=== PATIENT | male | born 1945 | race Caucasian/White ===

== ENCOUNTER 2016-10-30 09:35 | Outpatient (CLI) | END 2016-10-30 09:36 | disposition home or self-care (01) ==

== ENCOUNTER 2016-11-10 13:04 | Outpatient (CLI) | payer MEDICARE, OTHER | END 2016-11-10 13:05 | disposition home or self-care (01) | DX: G47.33 Obstructive sleep apnea (adult) (pediatric) (principal); I49.9 Cardiac arrhythmia, unspecified | CPT/HCPCS: 99214; G0463 ==

== ENCOUNTER 2017-01-21 10:11 | Outpatient (CLI) | payer MEDICARE, OTHER | END 2017-01-21 10:12 | disposition home or self-care (01) | DX: G47.33 Obstructive sleep apnea (adult) (pediatric) (principal) | CPT/HCPCS: 99214; G0463 ==

== ENCOUNTER 2017-05-15 09:58 | Outpatient (CLI) | payer MEDICARE, OTHER ==
[2017-05-15 10:39] LABS: BUN - BLOOD UREA NITROGEN 37 mg/dL (6-20); CALCIUM 9.2 mg/dL (8.5-10.3); CARBON DIOXIDE - CO2 27 mmol/L (21-32); CHLORIDE 102 mmol/L (101-111); CHOL/HDL RATIO 1.9 (<5.0); CHOLESTEROL 116 mg/dL; CREATININE 1.2 mg/dL (0.6-1.2); GFR - MDRD 60 (>89); GLUCOSE 126 mg/dL (70-100); HDL CHOLESTEROL 61 mg/dL; POTASSIUM 3.7 mmol/L (3.5-5.0); SODIUM 136 mmol/L (135-145); TRIGLYCERIDES 36 mg/dL
[2017-05-15 11:12] LABS: HEMOGLOBIN A1C 0.58 g/dL
[2017-05-15 11:13] LABS: LDL CHOLESTEROL,DIRECT 45 mg/dL
== END 2017-05-15 09:59 | disposition home or self-care (01) ==
LOC: LAB 09:58
PROVIDERS: ATTEND Internal Medicine
DX: J01.90 Acute sinusitis, unspecified (principal); E11.9 Type 2 diabetes mellitus without complications; J30.9 Allergic rhinitis, unspecified; N18.3 Chronic kidney disease, stage 3 (moderate); E66.9 Obesity, unspecified; G47.33 Obstructive sleep apnea (adult) (pediatric); I12.9 Hypertensive chronic kidney disease with stage 1 through stage 4 chronic kidney disease, or unspecified chronic kidney disease
CPT/HCPCS: 36415; 80048; 80061; 82043; 82570; 83036

== ENCOUNTER 2017-05-26 10:18 | Outpatient (CLI) | payer MEDICARE, OTHER | END 2017-05-26 10:19 | disposition home or self-care (01) | LOC: RT 10:18 | PROVIDERS: ATTEND Internal Medicine | DX: I49.9 Cardiac arrhythmia, unspecified (principal) | CPT/HCPCS: 93005 ==

== ENCOUNTER 2018-05-19 09:13 | Outpatient (CLI) | payer MEDICARE, OTHER ==
[2018-05-19 09:52] LABS: CREATININE,URINE 139.3 mg/dL; PROTEIN/CREATININE RATIO,URINE 0.1 (<=0.2)
[2018-05-19 10:08] LABS: BUN - BLOOD UREA NITROGEN 23 mg/dL (6-20); CARBON DIOXIDE - CO2 24 mmol/L (21-32); CHLORIDE 99 mmol/L (101-111); CHOL/HDL RATIO 2.5 (<5.0); CHOLESTEROL 108 mg/dL; CREATININE 1.1 mg/dL (0.6-1.2); GFR - MDRD 66 (>89); GLUCOSE 117 mg/dL (70-100); HDL CHOLESTEROL 43 mg/dL; LDL CHOLESTEROL,CALCULATED 50 mg/dL; LDL/HDL RATIO 1.2 (<3.6); SODIUM 133 mmol/L (135-145); VLDL CHOLESTEROL 15 mg/dL
[2018-05-19 13:14] LABS: HB2 TOTAL 13.5 g/dL; HEMOGLOBIN A1C 0.55 g/dL; HEMOGLOBIN A1C % 5.9 % (4.6-6.2)
== END 2018-05-19 09:14 | disposition home or self-care (01) ==
LOC: LAB 09:13
PROVIDERS: ATTEND Internal Medicine
DX: Z00.00 Encounter for general adult medical examination without abnormal findings (principal); J30.9 Allergic rhinitis, unspecified; E66.9 Obesity, unspecified; I12.9 Hypertensive chronic kidney disease with stage 1 through stage 4 chronic kidney disease, or unspecified chronic kidney disease; E11.22 Type 2 diabetes mellitus with diabetic chronic kidney disease; N18.3 Chronic kidney disease, stage 3 (moderate); G47.33 Obstructive sleep apnea (adult) (pediatric)
CPT/HCPCS: 36415; 80048; 80061; 82570; 83036; 83721; 84156

== ENCOUNTER 2018-05-28 11:36 | Outpatient (CLI) | payer MEDICARE, OTHER ==
--- NOTE | 2018-05-28 13:06 | CT Report ---
Procedure Date: 05/28/2018 Accession Number: [id number] / [id number] Procedure: CT - Chest W/O CPT Code: FULL RESULT: EXAM: CT CHEST EXAM DATE: 05/28/2018 11:52 AM. CLINICAL HISTORY: Hemoptysis. Bloody mucus when coughing. History of smoking with 1 pack per day for 25 years. Shortness of breath. Diabetes. High blood pressure. COMPARISONS: CT abdomen and pelvis from 02/17/2015. TECHNIQUE: Routine helical CT imaging was performed through the chest. IV contrast: None. Reconstructions: Coronal and sagittal. In accordance with CT protocol optimization, one or more of the following dose reduction techniques were utilized for this exam: automated exposure control, adjustment of mA and/or KV based on patient size, or use of iterative reconstructive technique. FINDINGS: Lungs/Pleura: Lobular lesion is seen in the right upper lobe seen best on image 24 series 4 measuring 4 x 1.3 cm with a craniocaudad extent of approximately 1.2 cm. Confluent area of adjacent stellate opacity and architectural distortion. Posteriorly and inferiorly in the right upper lobe, are adjacent nodular densities approximately 5 measuring up to 1.9 x 1.3, 1.1 x 1.0, 2.5 x 1.5 and 1.9 x 1.8 cm, somewhat ill-defined. The 4 cm density coalesces with an area of cystic change in the right upper lobe. The nodular densities extend to the right hilum where there is soft tissue bronchovascular thickening and prominence of the bronchovascular margins involving the right upper lobe with thickening and narrowing of the bronchi specifically the right upper lobe bronchus seen best on axial images 28-26 series 3. There are emphysematous changes centrilobular and paraseptal emphysematous changes. Bullous changes seen in the lower lobes. Peripheral septal thickening and punctate calcifications are seen in the right middle and right lower lobe. No pleural effusions. Mediastinum: Heart size is normal. Coronary artery calcified and thoracic aortic calcified plaque. Small pericardial effusion. Prominent right paratracheal 10 mm and right hilar 16 mm short axis dimension lymph nodes also seen subcarinal lymph node measuring up to 13 mm in short axis dimension. Small hiatal hernia. Bones: Degenerative changes of the thoracic spine. No acute osseous abnormalities. Visualized Abdomen: Included portions of the liver, spleen, and pancreas are unremarkable. Nodular thickening of the adrenal glands is seen with more prominent masslike enlargement of the left adrenal gland measuring up to 2.2 x 1.8 cm which is new. Nodular thickening of the right adrenal gland somewhat similar in appearance. Low-attenuation exophytic lesion arises from the upper right kidney measuring 45 mm, indeterminate. Included portions of the stomach and upper abdominal bowel are unremarkable. Abdominal aortic calcified plaque. Other: None. IMPRESSION: 1. Right upper lobe lobular lesions with the dominant lesion measuring 4 cm with adjacent satellite lesions also present in the right upper lobe. Extensive right upper lobe bronchovascular soft tissue thickening extending to the right hilum with narrowing of the right upper lobe bronchus. Findings are concerning for a bronchogenic lesion with adjacent satellite lesions. 2. Mediastinal particularly subcarinal and right hilar adenopathy. 3. Emphysematous changes. 4. Left adrenal 2.2 cm nodule. Findings discussed with Dr. Hicks following the study on 05/28/2018. RADIA
== END 2018-05-28 11:37 | disposition home or self-care (01) ==
LOC: DI 11:36
PROVIDERS: ATTEND Internal Medicine
DX: R04.2 Hemoptysis (principal); R91.8 Other nonspecific abnormal finding of lung field
CPT/HCPCS: 71250

== ENCOUNTER 2018-07-26 09:02 | Outpatient (CLI) | payer MEDICARE, OTHER | END 2018-07-26 09:03 | disposition home or self-care (01) | LOC: DI 09:02 | PROVIDERS: ATTEND Internal Medicine | DX: I49.9 Cardiac arrhythmia, unspecified (principal); I48.91 Unspecified atrial fibrillation; I51.7 Cardiomegaly; J30.9 Allergic rhinitis, unspecified; I12.9 Hypertensive chronic kidney disease with stage 1 through stage 4 chronic kidney disease, or unspecified chronic kidney disease; E11.22 Type 2 diabetes mellitus with diabetic chronic kidney disease; N18.3 Chronic kidney disease, stage 3 (moderate); R04.2 Hemoptysis; J98.4 Other disorders of lung; E66.9 Obesity, unspecified; G47.33 Obstructive sleep apnea (adult) (pediatric) | CPT/HCPCS: 36415; 80053; 84443; 85025; 93005; 93306 ==

== ENCOUNTER 2018-07-26 10:13 | Outpatient (CLI) | payer MEDICARE, OTHER ==
[2018-07-26 10:56] LABS: BASOPHILS # (AUTO) 0.1 10^3/uL (0.0-0.1); EOSINOPHILS # (AUTO) 0.1 10^3/uL (0.0-0.7); EOSINOPHILS % (AUTO) 0.9 %; HGB - HEMOGLOBIN 12.7 g/dL (14.0-18.0); LYMPHOCYTES # (AUTO) 1.5 10^3/uL (1.5-3.5); MEAN CORPUSCULAR HEMOGLOBIN 31.2 pg (27.0-31.0); MEAN CORPUSCULAR HGB CONC 34.5 g/dL (32.0-36.0); MEAN CORPUSCULAR VOLUME 90.4 fL (80.0-94.0); MEAN PLATELET VOLUME 8.5 fL (7.4-11.4); MONOCYTES # (AUTO) 0.7 10^3/uL (0.0-1.0); MONOCYTES % (AUTO) 8.3 %; NEUTROPHILS # (AUTO) 6.5 10^3/uL (1.5-6.6); NEUTROPHILS % (AUTO) 72.8 %; PLT - PLATELET COUNT 200 10^3/uL (130-450); RED BLOOD COUNT 4.08 10^6/uL (4.70-6.10); RED CELL DISTRIBUTION WIDTH 14.1 % (12.0-15.0)
[2018-07-26 11:32] LABS: ALBUMIN 3.6 g/dL (3.2-5.5); ALBUMIN/GLOBULIN RATIO 0.9 (1.0-2.2); ALKALINE PHOSPHATASE 117 IU/L (42-121); ALT ALANINE AMINOTRANSFERASE 15 IU/L (10-60); AST ASPARTATE AMINOTRANSFERASE 14 IU/L (10-42); BILIRUBIN,TOTAL 0.8 mg/dL (0.2-1.0); BUN - BLOOD UREA NITROGEN 20 mg/dL (6-20); CALCIUM 8.8 mg/dL (8.5-10.3); CARBON DIOXIDE - CO2 21 mmol/L (21-32); CHLORIDE 104 mmol/L (101-111); CREATININE 1.2 mg/dL (0.6-1.2); GFR - MDRD 60 (>89); GLUCOSE 109 mg/dL (70-100); SODIUM 134 mmol/L (135-145); TOTAL PROTEIN 7.7 g/dL (6.7-8.2)
== END 2018-07-26 10:14 | disposition home or self-care (01) ==
LOC: LAB 10:13
PROVIDERS: ATTEND Internal Medicine
DX: J30.9 Allergic rhinitis, unspecified (principal); E11.22 Type 2 diabetes mellitus with diabetic chronic kidney disease; N18.3 Chronic kidney disease, stage 3 (moderate); I49.9 Cardiac arrhythmia, unspecified; R04.2 Hemoptysis; J98.4 Other disorders of lung; E66.9 Obesity, unspecified; G47.33 Obstructive sleep apnea (adult) (pediatric); I12.9 Hypertensive chronic kidney disease with stage 1 through stage 4 chronic kidney disease, or unspecified chronic kidney disease
CPT/HCPCS: 36415; 80053; 84443; 85025

== ENCOUNTER 2018-09-27 19:15 | Inpatient (IN) | payer MEDICARE, OTHER ==
[2018-09-27 19:40] LABS: BASOPHILS # (AUTO) 0.1 10^3/uL (0.0-0.1); BASOPHILS % (AUTO) 1.2 %; EOSINOPHILS % (AUTO) 0.3 %; HGB - HEMOGLOBIN 11.9 g/dL (14.0-18.0); LYMPHOCYTES # (AUTO) 1.2 10^3/uL (1.5-3.5); LYMPHOCYTES % (AUTO) 10.2 %; MEAN CORPUSCULAR HEMOGLOBIN 29.8 pg (27.0-31.0); MEAN CORPUSCULAR HGB CONC 32.9 g/dL (32.0-36.0); MEAN CORPUSCULAR VOLUME 90.6 fL (80.0-94.0); MEAN PLATELET VOLUME 8.6 fL (7.4-11.4); MONOCYTES # (AUTO) 1.2 10^3/uL (0.0-1.0); MONOCYTES % (AUTO) 9.9 %; NEUTROPHILS # (AUTO) 9.6 10^3/uL (1.5-6.6); NEUTROPHILS % (AUTO) 78.4 %; PLT - PLATELET COUNT 102 10^3/uL (130-450); RED BLOOD COUNT 3.99 10^6/uL (4.70-6.10); RED CELL DISTRIBUTION WIDTH 15.7 % (12.0-15.0); WHITE BLOOD COUNT 12.2 x10^3/uL (4.8-10.8)
[2018-09-27 19:49] LABS: ALBUMIN 3.4 g/dL (3.2-5.5); BILIRUBIN,TOTAL 0.9 mg/dL (0.2-1.0); CALCIUM 8.4 mg/dL (8.5-10.3); CREATININE 1.2 mg/dL (0.6-1.2); TOTAL PROTEIN 6.8 g/dL (6.7-8.2)
--- NOTE | 2018-09-27 20:23 | ED Physician Documentation ---
PD HPI DYSPNEA - Stated complaint Stated Complaint: SOA - Chief complaint Chief Complaint: Resp - History obtained from History obtained from: Patient, Family - History of Present Illness Timing - onset: How many weeks ago (1) Timing - onset during: Light activity Timing - duration: Weeks (He has had about a week of progressive pedal edema dyspnea and orthopnea. He did start with some immunotherapy for lung cancer a couple weeks ago. He does have a history of intermittent atrial fibrillation. He had had an echocardiogram July 26 which showed sinus rhythm and ejection fraction of 60%. There is no history of congestive heart failure. He has not had any fever or cough.) Timing - details: Gradual onset, Still present Inciting event(s): No: URI Improved by: Rest, Sitting up Worsened by: Exertion, Laying flat Associated symptoms: Palpitations, Bilateral edema. No: Fever, Wheezing, Chest pain / discomfort Review of Systems Constitutional: denies: Fever, Chills Nose: denies: Rhinorrhea / runny nose, Congestion Throat: denies: Sore throat Cardiac: reports: Palpitations, Pedal edema (new onset). denies: Chest pain / pressure, Calf pain Respiratory: reports: Dyspnea. denies: Cough GI: reports: Abdominal Pain, Abdominal Swelling (mild). denies: Nausea, Vomiting Skin: reports: Rash (inguinal rash bilaterally) PD PAST MEDICAL HISTORY - Past Medical History Past Medical History: Yes Cardiovascular: Hypertension, High cholesterol, Atrial fibrillation Respiratory: Shortness of breath, Sleep apnea, CPAP use, Other Neuro: None Endocrine/Autoimmune: Type 2 diabetes GI: None : Other Psych: None Musculoskeletal: Other Derm: None Other Past Medical History: lung cancer that metastized to bones in pelvis and back and adrenal glands - Past Surgical History Past Surgical History: Yes HEENT: Cataracts - Present Medications Home Medications: Ambulatory Orders Medication Instructions Recorded Confirmed Aspirin [Aspir-Low] 81 mg PO DAILY 10/14/16 10/15/16 Atorvastatin Calcium 40 mg PO DAILY 10/14/16 10/14/16 Doxazosin Mesylate 8 mg PO DAILY 10/14/16 10/14/16 Lisinopril 40 mg PO BID 10/14/16 10/14/16 amLODIPine [Norvasc] 10 mg PO DAILY 10/14/16 10/14/16 hydroCHLOROthiazide 25 mg PO DAILY 10/14/16 10/14/16 [Hydrochlorothiazide] metFORMIN [Glucophage] 500 mg PO BID 10/14/16 10/14/16 - Allergies Allergies/Adverse Reactions: Allergies Allergy/AdvReac Type Severity Reaction Status Date / Time No Known Drug Allergies Allergy Verified 09/27/18 19:28 - Social History Does the pt smoke?: No Smoking Status: Former smoker Does the pt drink ETOH?: No Does the pt have substance abuse?: No - Immunizations Immunizations are current?: Yes - POLST Patient has POLST: No PD ED PE NORMAL - Vitals Vital signs reviewed: Yes - General General: Alert and oriented X 3, Well developed/nourished - HEENT HEENT: Pharynx benign - Neck Neck: Supple, no meningeal sign, No adenopathy, No bruit, Other (JVD noted at 45 degrees) - Cardiac Cardiac: No murmur. No: RRR (irregular and fast at 120-135 rate c/w atrial fib. ) - Respiratory Respiratory: No: Clear bilaterally (crackles at bases. Decreased sounds right lung) - Abdomen Abdomen: Soft, Non tender, No organomegaly, Other (some distension of the lower abd, with decreased bowel sounds. ) - Male Male : Other (inguinal rash with demarcated redness, left more than right, c/w tinea cruris.) - Rectal Rectal: Deferred - Back Back: No CVA TTP - Derm Derm: Normal color, Warm and dry - Extremities Extremities: No deformity, No tenderness to palpate, Normal ROM s pain, Other (2+ edema in both legs, pitting, up to knees. No calf tenderness. ) - Neuro Neuro: Alert and oriented X 3, No motor deficit, Normal speech Results - Vitals Vitals: Vital Signs - 24 hr 09/27/18 09/27/18 09/27/18 19:15 19:36 21:13 Temperature 36.0 C L Heart Rate 128 H 120 H 114 H Respiratory 24 19 16 Rate Blood Pressure 121/76 100/61 94/63 O2 Saturation 94 94 92 09/27/18 09/27/18 09/27/18 21:34 21:52 22:10 Temperature Heart Rate 118 H 118 H 121 H Respiratory 21 18 20 Rate Blood Pressure 98/72 94/63 99/72 O2 Saturation 94 94 92 Oxygen O2 Source Nasal cannula Oxygen Flow Rate 2 - EKG (time done) 20:52 Rate: Rate (enter#) (106) Rhythm: Atrial fibrillation [place]: Normal QRS: Normal Ischemia: Normal ST segments. No: ST elevation c/w ischemia, ST depression - Labs Labs: Laboratory Tests 09/27/18 09/27/18 12 19:30 19:30 19:30 WBC 12.2 H RBC 3.99 L Hgb 11.9 L Hct 36.1 L MCV 90.6 MCH 29.8 MCHC 32.9 RDW 15.7 H Plt Count 102 L MPV 8.6 Neut # (Auto) 9.6 H Lymph # (Auto) 1.2 L White # (Auto) 1.2 H Eos # (Auto) 0.0 Baso # (Auto) 0.1 Absolute Nucleated RBC 0.00 Nucleated RBC % 0.0 PT INR Sodium 128 L Potassium 4.8 Chloride 98 L Carbon Dioxide 23 Anion Gap 7.0 BUN 40 H Creatinine 1.2 Estimated GFR (MDRD) 60 L Glucose 132 H Calcium 8.4 L Magnesium Total Bilirubin 0.9 AST 25 ALT 21 Alkaline Phosphatase 154 H B-Natriuretic Peptide 692 H Total Protein 6.8 Albumin 3.4 Globulin 3.4 Albumin/Globulin Ratio 1.0 Lipase 19 L 09/27/18 09/27/18 19:30 19:30 WBC RBC Hgb Hct MCV MCH MCHC RDW Plt Count MPV Neut # (Auto) Lymph # (Auto) White # (Auto) Eos # (Auto) Baso # (Auto) Absolute Nucleated RBC Nucleated RBC % PT 29.5 H INR 2.6 H Sodium Potassium Chloride Carbon Dioxide Anion Gap BUN Creatinine Estimated GFR (MDRD) Glucose Calcium Magnesium 2.4 Total Bilirubin AST ALT Alkaline Phosphatase B-Natriuretic Peptide Total Protein Albumin Globulin Albumin/Globulin Ratio Lipase - Rads (name of study) chest xray Radiology: Prelim report reviewed (right middle lobe mass c/w known cancer. New lower lobe infiltrates/edema bilaterally.), EMP read contemporaneously PD MEDICAL DECISION MAKING - ED course Complexity details: reviewed old records (He had an echocardiogram 07/26/2018 for evaluation of intermittent atrial fibrillation. At the time it was a sinus rhythm showed an ejection fraction of 60% without any acute abnormalities. He does have a known lung cancer with metastases. He is receiving immunotherapy treatment for it. There is no history of congestive heart failure.), considered differential (Seems likely congestive failure related to fast atrial fibrillation. There is no prior ischemic heart disease. There is no valvular heart disease on a recent echocardiogram. He does have a little bit of fullness in the abdomen along with the bilateral pedal edema. There is known lung cancer so could consider possibility of hepatic vascular congestion and subsequent lower extremity lower body edema. However that would not account for the dyspnea and some crackles in the lungs. He needs rate control and also diuresis. He has not had any cough or fever so I doubt pneumonia.), d/w patient Departure - Departure Disposition: ED Place in Observation Clinical Impression: Leg edema, Atrial fibrillation with RVR Dyspnea Qualifiers: Dyspnea type: orthopnea Qualified Code(s): R06.01 - Orthopnea Pulmonary edema Qualifiers: Chronicity: acute Qualified Code(s): J81.0 - Acute pulmonary edema Lung cancer Qualifiers: Laterality: right Lung location: upper lobe of lung Qualified Code(s): C34.11 - Malignant neoplasm of upper lobe, right bronchus or lung Condition: Stable Record reviewed to determine appropriate education?: Yes
[2018-09-27] MEDS ORDERED: METOPROLOL 5 MG/5 ML VIAL IVP STA (20:47)
[2018-09-27] MEDS ORDERED: MORPHINE 10 MG/ML VIAL IVP STA (20:47)
[2018-09-27] MEDS ORDERED: FUROSEMIDE 40 MG/4 ML VIAL IVP STA (20:47)
--- NOTE | 2018-09-27 21:04 | XRAY Report ---
Reason: dyspnea Procedure Date: 09/27/2018 Accession Number: [id number] / [id number] Procedure: XR - Chest 1 View X-Ray CPT Code: 03758 FULL RESULT: EXAM: CHEST RADIOGRAPHY EXAM DATE: 09/27/2018 08:51 PM. CLINICAL HISTORY: Dyspnea. COMPARISON: CHEST W/O 05/28/2018 11:46 AM. TECHNIQUE: 1 view. FINDINGS: Lungs/Pleura: 5.6 cm masslike region in the right upper lobe corresponds to the patient's known lung cancer and postobstructive pneumonia. Patchy right middle, right lower and right upper lobe opacities are noted. Mild blunting of both costophrenic angles. Retrocardiac opacities are also noted. Compared to the prior study, worsening interstitial prominence is noted in both lungs. No pneumothorax. Mediastinum: Stable cardiomediastinal silhouette. Left Mediport terminates in the junction of the SVC and brachiocephalic vein. Atheromatous disease is noted in the thoracic aorta. Other: None. IMPRESSION: 1. Right upper lobe mass. 2. Right lung and left lower lobe opacity suspicious for infiltrates, asymmetric edema or lymphangitic spread of tumor. 3. Small effusions. No pneumothorax. RADIA
[2018-09-27] MEDS ORDERED: ONDANSETRON 4 MG/2 ML VIAL IVP PRN (22:15)
[2018-09-27] MEDS ORDERED: ZOLPIDEM 5 MG TABLET PO PRN (22:15)
[2018-09-27] MEDS ORDERED: HYDROcod/ACETAM 5/325 MG TABLET PO PRN (22:15)
[2018-09-27] MEDS ORDERED: PROCHLORPERAZINE 10 MG/2 ML VIAL IVP PRN (22:15)
[2018-09-27] MEDS ORDERED: ACETAMINOPHEN 325 MG TABLET PO PRN (22:15)
[2018-09-27] MEDS ORDERED: cefTRIAXone 1 GM in SODIUM CHLORIDE 0.9% MINIBAG 100 ML IV STA (22:20)
[2018-09-27] MEDS ORDERED: AZITHROMYCIN 250 MG TABLET PO STA (22:20)
[2018-09-27] MEDS ORDERED: METOPROLOL 5 MG/5 ML VIAL IVP PRN (22:37)
--- NOTE | 2018-09-27 22:47 | HISTORY & PHYSICAL EXAMINATION ---
Chief Complaint - Chief Complaint Chief Complaint: Shortness of breath and leg swelling History of Present Illness - Admitted From Admitted From:: Emergency department - History Obtained From Records Reviewed: ED records and previous visits records History obtained from: Patient and Dr. Mauricio, ED physician Exam Limitations: Patient is a fair historian, unclear on some details - History of Present Illness HPI Comment/Other: Patient is a 73-year-old male with a history of paroxysmal atrial fibrillation, type 2 diabetes mellitus, hypertension, hyperlipidemia, and unfortunately stage IV lung cancer with recent findings of metastasis to bone and liver in particular lumbar spine. He presents to the emergency room with chief complaint of bilateral leg swelling. The duration is difficult for the patient to pinpoint however he settles somewhere around 2 weeks, associated with a shortness of breath that when asked ranges anywhere from 25 years to 1 month in duration. However, without being able to provide a very reliable timeline he does seem to complain of an acute exacerbation of shortness of breath. He states that about 1 month ago his doctor put him on oxygen. He typically uses 2 L of oxygen at home however on 2 L of oxygen he was short of breath today and saturating at 78%. He was brought into the emergency room to be evaluated by his who arrives later and is able to provide some additional history. He does have a history of obstructive sleep apnea, and she had just gone home to bring his home CPAP device. Patient is not known to have a history of CHF, and a recent echocardiogram in July 2018 showed an ejection fraction of 60-65%. He is not on oral diuretics. Despite his history of paroxysmal atrial fibrillation he is not on a anticoagulant and he is not on a rate control medication. In the emergency room he was found to be afebrile but tachycardic in the 115-120 range, somewhat hypotensive with systolics in the 90s over 60s diastolic, and a white blood cell count of 12 with no lactic acid ordered. Chest x-ray is indicative of bilateral pleural effusion with possibility of infiltrate basal bilaterally. Given that the patient has tachycardia, increased oxygen demand, and symptoms of a possible CHF exacerbation, the hospitalist team was asked to admit this patient. History - Past Medical History Cardiovascular: reports: Hypertension, High cholesterol, Atrial fibrillation. denies: Congestive heart failure Respiratory: reports: Shortness of breath, Sleep apnea, CPAP use, Other. denies: COPD, Emphysema Neuro: reports: None Endocrine/Autoimmune: reports: Type 2 diabetes GI: reports: None : reports: Benign prostate hypertrophy, Other Psych: reports: None Musculoskeletal: reports: Chronic back pain, Other Derm: reports: None MRSA Hx?: No Other Past Medical History: lung cancer that metastized to bones in pelvis and back and adrenal glands - Past Surgical History HEENT: reports: Cataracts Other past surgical history: Port-A-Cath left chest - Family & Social History Family History: Mother: , Father: Living arrangement: At home Living Situation: With spouse/s.o. - Substance History Use: Uses substance without health or social issues: NONE - POLST Patient has POLST: No POLST Status: Full Code Meds/Allgy - Home Medications Home Medications: Ambulatory Orders Medication Instructions Recorded Confirmed Aspirin [Aspir-Low] 81 mg PO DAILY 10/14/16 10/15/16 Atorvastatin Calcium 40 mg PO DAILY 10/14/16 10/14/16 Doxazosin Mesylate 8 mg PO DAILY 10/14/16 10/14/16 Lisinopril 40 mg PO BID 10/14/16 10/14/16 amLODIPine [Norvasc] 10 mg PO DAILY 10/14/16 10/14/16 hydroCHLOROthiazide 25 mg PO DAILY 10/14/16 10/14/16 [Hydrochlorothiazide] metFORMIN [Glucophage] 500 mg PO BID 10/14/16 10/14/16 - Allergies Allergies/Adverse Reactions: Allergies Allergy/AdvReac Type Severity Reaction Status Date / Time No Known Drug Allergies Allergy Verified 09/27/18 19:28 Review of Systems - Constitutional Constitutional: reports: Fatigue, Weakness. denies: Fever, Chills - Cardiovascular Cariovascular: reports: Irregular heart rate, Palpitations. denies: Chest pain, Lightheadedness, Syncope - Respiratory Respiratory: reports: Wheezing, SOB at rest, SOB with exertion, Apnea - Gastrointestinal Gastrointestinal: denies: Abdominal pain, Constipation, Diarrhea, Change in bowel habits - Musculoskeletal Musculoskeletal: reports: Back pain - Integumentary Integumentary: denies: Rash - Neurological Neurological: reports: General weakness Prior Level of Functionality: Lives at home and fairly independent though does have assistance of spouse Exam - Vital Signs Reviewed Vital Signs: Yes Vital Signs: Vital Signs x48h Temp Pulse Resp BP Pulse Ox 09/27/18 22:33 95 17 108/75 93 09/27/18 22:24 120 H 23 103/70 93 09/27/18 22:10 121 H 20 99/72 92 09/27/18 21:52 118 H 18 94/63 94 09/27/18 21:34 118 H 21 98/72 94 09/27/18 21:13 114 H 16 94/63 92 09/27/18 19:36 120 H 19 100/61 94 09/27/18 19:15 36.0 C L 128 H 24 121/76 94 - Physical Exam General Appearance: positive: No acute distress Eyes Bilateral: positive: Normal inspection ENT: positive: ENT inspection nml Neck: positive: Nml inspection Respiratory: positive: Chest non-tender, Wheezes, Rhonchi Cardiovascular: positive: No murmur, No gallop, Irregularly irregular, Tachycardia Peripheral Pulses: positive: 2+ Abdomen: positive: Non-tender, No organomegaly, Nml bowel sounds, No distention Skin: positive: Color nml, Other (Few petechiae of the bilateral lower extremities without Erythema) Extremities: positive: Pedal edema Neurologic/Psychiatric: positive: Oriented x3, CN's nml (2-12), Motor nml, Sensation nml Sepsis Event Note (H) - Evaluation Possible source of Sepsis: positive: Pulmonary - Sepsis Criteria Sepsis Criteria: Recorded Heart Rate greater than 90 bpm, WBC count greater than 12,000 or less than 4000 Conclusion/Plan - Problem List (1) Dyspnea Conclusion/Plan: Patient having dyspnea possibly secondary to new onset CHF, possibly due to persistent tachycardia versus medication related with cancer treatment. Though the patient had an echocardiogram 2 months ago that did not demonstrate CHF, cannot rule out the possibility of acute onset. However, his chest x-ray does show the probability of infiltrates and despite the fact that he has no fever, he does have a white blood cell count and at this point is infection cannot be ruled out. He is having an increase in his oxygen demand from 3 L to 5 L so we will keep him in house treating his hypoxia with oxygen supplementation, diuresis for the pulmonary edema and pleural effusion, and empiric antibiotics for possible infection pending results of lactic acid and morning lab WBC count. Qualifiers: Dyspnea type: orthopnea Qualified Code(s): R06.01 - Orthopnea (2) Hypoxia Conclusion/Plan: As above, unclear if this is CHF exacerbation, infection, And cannot exclude pulmonary embolus. Given that he does have symptoms more consistent with CHF including bilateral pedal edema, wheezing, will hold off on CT angiogram pending clinical course. He will be on IV heparin for DVT prophylaxis in the meantime. See plan above (3) Atrial fibrillation with RVR Conclusion/Plan: Patient is moderately tachycardic with heart rates in the 115-120 range. He does not take a rate control medication at home. He was given a single dose of IV metoprolol in the emergency room prior to this admission so we will monitor for the reaction to this medication and I will provide as needed metoprolol for now given his soft blood pressures rather than scheduled beta-livier. Overnight and tomorrow morning pending his blood pressures and heart rate further determination can be made as to whether or not he should be on a scheduled beta-livier or other rate control medication. (4) Leg edema Conclusion/Plan: Leg edema is probably related to the dyspnea and possibly related to new onset CHF exacerbation. Another consideration would be the Norvasc although at 5 mg daily and was he relatively acute onset of leg edema, this is unlikely. In any case we will be holding this medication and increasing diuresis and following clinical course. (5) Hypertension Conclusion/Plan: History of hypertension currently with blood pressures in the normal to low range. Possible examination could include sepsis and lactic acid is pending. In the meantime, due to need for rate control low-dose of metoprolol was given.We will hold home Norvasc and lisinopril. (6) Hyperlipidemia Conclusion/Plan: Continue home statin (7) Pulmonary edema Conclusion/Plan: See above Qualifiers: Chronicity: acute Qualified Code(s): J81.0 - Acute pulmonary edema (8) Type 2 diabetes mellitus Conclusion/Plan: Control is uncertain, A1c pending in the morning. We will hold oral metformin and treat with insulin sliding scale Qualifiers: Diabetes mellitus ferry terminal agent insulin use: without ferry terminal agent use Diabetes mellitus complication status: without complication Qualified Code(s): E11.9 - Type 2 diabetes mellitus without complications (9) Lung cancer Conclusion/Plan: Known diagnosis with new metastasis. Unlikely to require intervention for cancer during this hospital stay, will control pain. Qualifiers: Laterality: right Lung location: upper lobe of lung Qualified Code(s): C34.11 - Malignant neoplasm of upper lobe, right bronchus or lung - Lab Results Lab results reviewed: Yes Fish Bones: 09/27/18 19:30 09/27/18 19:30 - Diagnostic Imaging Results Diagnostic Imaging Results: positive: Final report reviewed, Read independently - EKG Results EKG Interpreted Independently: Yes EKG Comparison: Changed from prior EKG (Tachycardia, Known A. fib. No ST elevation or sign of MT) Core Measures - Anticipated LOS I expect patient to be DC'd or transferred within 96 hours.: Yes - DVT/VTE - Prophylaxis VTE/DVT Device ordered at admit?: Yes
[2018-09-27 22:50] LABS: INR 2.6 (0.8-1.2); PT - PROTHROMBIN TIME 29.5 secs (9.9-12.6)
[2018-09-28] MEDS: SODIUM CHLORIDE FLUSH 0.9% 10 ML SYRINGE IVP SCH ×3 (01:06→16:03)
[2018-09-28 05:25] LABS: HGB - HEMOGLOBIN 11.8 g/dL (14.0-18.0); MEAN CORPUSCULAR HEMOGLOBIN 29.6 pg (27.0-31.0); MEAN CORPUSCULAR HGB CONC 32.3 g/dL (32.0-36.0); MEAN CORPUSCULAR VOLUME 91.7 fL (80.0-94.0); MEAN PLATELET VOLUME 8.5 fL (7.4-11.4); RED BLOOD COUNT 3.99 10^6/uL (4.70-6.10); RED CELL DISTRIBUTION WIDTH 15.2 % (12.0-15.0); WHITE BLOOD COUNT 14.4 x10^3/uL (4.8-10.8)
[2018-09-28 05:37] LABS: CALCIUM 8.2 mg/dL (8.5-10.3); CREATININE 1.2 mg/dL (0.6-1.2)
[2018-09-28 05:52] LABS: HB2 TOTAL 12.3 g/dL; HEMOGLOBIN A1C 0.53 g/dL; HEMOGLOBIN A1C % 6.1 % (4.6-6.2)
[2018-09-28] MEDS ORDERED: HEPARIN 5,000 UNIT/ML VIAL SUBQ SCH (09:00)
[2018-09-28] MEDS ORDERED: DOXAZOSIN 4 MG TABLET PO SCH (09:00)
[2018-09-28] MEDS ORDERED: FUROSEMIDE 40 MG/4 ML VIAL IVP SCH (09:00)
[2018-09-28] MEDS: FAMOTIDINE 20 MG TABLET PO SCH ×2 (09:26→20:38)
[2018-09-28] MEDS: ATORVASTATIN 40 MG TABLET PO SCH (09:27)
[2018-09-28] MEDS: KETOCONAZOLE 2% CREAM 15 GM TUBE TOP SCH ×2 (09:28→20:48)
[2018-09-28] MEDS: ASPIRIN EC 81 MG TABLET PO SCH (09:28)
[2018-09-28] MEDS: POLYETHYLENE GLYCOL 3350 17 GM PACKET PO SCH (09:28)
[2018-09-28] MEDS: INSULIN ASPART 300 UNIT/3 ML PEN SUBQ SCH ×4 (09:28→20:38)
[2018-09-28] MEDS: SODIUM CHLORIDE FLUSH 0.9% 10 ML SYRINGE IVP PRN (09:29)
--- NOTE | 2018-09-28 11:12 | PROVIDER PROGRESS NOTE ---
Subjective - Prog Note Date Prog Note Date: 09/28/18 Prog Note Time: 11:11 - Subjective Pt reports feeling: No change Subjective: Chintan complains of BLE edema that is causing the most distress. He denies chest pain, nausea, vomiting, diarrhea, or a productive cough. His , Haylee is present for the exam. Current Medications - Current Medications Current Medications: Active Medications Acetaminophen (Tylenol) 650 mg PO Q4HR PRN PRN Reason: Pain 1 to 4 Hydrocodone Bitart/Acetaminophen (Novi 5/325) 1 tab PO Q4HR PRN PRN Reason: Pain 5 to 7 Aspirin (Ecotrin) 81 mg PO DAILY [facility] Last Admin: 09/28/18 09:28 Dose: Not Given Atorvastatin Calcium (Lipitor) 40 mg PO DAILY [facility] Last Admin: 09/28/18 09:27 Dose: 40 mg Enoxaparin Sodium (Lovenox) 40 mg SUBQ DAILY [facility] Famotidine (Pepcid) 20 mg PO BID [facility] Last Admin: 09/28/18 09:26 Dose: 20 mg Furosemide (Lasix Inj 40 Mg Vial) 80 mg IVP BID [facility] Furosemide (Lasix Inj 20mg Vial) 20 mg IVP ONCE ONE Stop: 09/28/18 11:35 Heparin Sodium (Beef Lung) () 30 - 50 unit IVP PRN PRN PRN Reason: Port Protocol (<24 hours) Insulin Aspart (Novolog) 1 - 9 unit SUBQ 0800,1200,1700,2100 [facility]; Protocol Last Admin: 09/28/18 09:28 Dose: Not Given Insulin Glargine (Lantus Solostar) 5 unit SUBQ QPM [facility] Ketoconazole (Nizoral 2% Cream) 1 applic TOP BID [facility] Last Admin: 09/28/18 09:28 Dose: 1 applic Levalbuterol HCl (Xopenex) 1.25 mg INH Q2HR PRN PRN Reason: Wheezing Lidocaine HCl (Xylocaine Uro-Jet 2%) 2.5 ml UR Q6H PRN PRN Reason: PAIN Metoprolol Succinate (Toprol Xl) 12.5 mg PO BIDWM [facility] Metoprolol Tartrate (Lopressor Inj) 5 mg IVP Q4HR PRN PRN Reason: Tachycardia Morphine Sulfate (Morphine (Carpuject)) 2 mg IVP Q4HR PRN PRN Reason: Pain 8 to 10 Ondansetron HCl (Zofran Inj) 4 mg IVP Q6HR PRN PRN Reason: Nausea / Vomiting Polyethylene Glycol (Miralax) 17 gm PO DAILY [facility] Last Admin: 09/28/18 09:28 Dose: Not Given Prochlorperazine Edisylate (Compazine Inj) 10 mg IVP Q6HR PRN PRN Reason: Nausea / Vomiting Sodium Chloride (Normal Saline Flush 0.9%) 10 ml IVP PRN PRN PRN Reason: NEEDED PER PROVIDER ORDERS Last Admin: 09/28/18 09:29 Dose: 10 ml Sodium Chloride (Normal Saline Flush 0.9%) 10 ml IVP 0100,0900,1700 [facility] Last Admin: 09/28/18 09:29 Dose: 10 ml Sodium Chloride (Normal Saline Flush 0.9%) 20 ml IVP PRN PRN PRN Reason: After Blood Draw Tamsulosin HCl (Flomax) 0.4 mg PO DAILY [facility] Zolpidem Tartrate (Ambien) 5 mg PO QPM PRN PRN Reason: Insomnia Atorvastatin Calcium 40 mg PO DAILY 10/14/16 Doxazosin Mesylate 8 mg PO DAILY 10/14/16 Lisinopril 40 mg PO BID 10/14/16 amLODIPine [Norvasc] 10 mg PO DAILY 10/14/16 hydroCHLOROthiazide [Hydrochlorothiazide] 25 mg PO DAILY 10/14/16 metFORMIN [Glucophage] 500 mg PO BID 10/14/16 Acetaminophen [Extra Strength Non-Aspirin] 1,000 mg PO TID PRN 09/28/18 Albuterol Sulfate [Proair Hfa Inhaler] 2 puffs INH Q4H PRN 09/28/18 Aspirin [Adult Aspirin] 81 mg PO DAILY 09/28/18 Cholecalciferol (Vitamin D3) [Vitamin D3] 1,000 unit PO DAILY 09/28/18 Fluticasone Propionate 2 spray NS DAILY 09/28/18 Loratadine [Allergy] 10 mg PO DAILY 09/28/18 Warfarin Sodium 5 mg PO DAILY 09/28/18 Objective - Vital Signs/Intake & Output Reviewed Vital Signs: Yes Vital Signs: Vital Signs x48h Temp Pulse Resp BP Pulse Ox 09/28/18 11:06 36.7 C 96 18 109/88 H 94 09/28/18 08:02 36.6 C 72 18 103/73 98 09/28/18 05:00 36.5 C 106 H 18 113/63 98 Intake & Output: Intake & Output 09/25/18 09/26/18 09/27/18 09/28/18 23:59 23:59 23:59 23:59 Intake Total 110 240 Output Total 50 1325 Balance 60 -1085 - Objective General Appearance: positive: Alert, Mild distress Eyes Bilateral: positive: Normal inspection, No lid inflammation Eyes: OU Conjunctivae pale ENT: positive: ENT inspection nml, Pharynx nml, Dry mucous membranes Neck: positive: Thyroid nml, No JVD, Trachea midline Respiratory: positive: Chest non-tender, Rhonchi Cardiovascular: positive: No gallop, Irregularly irregular, Systolic murmur, Decreased pulse(s) Peripheral Pulses: 0 Popliteal (R), 0 Popliteal (L), 2+ Radial (R), 2+ Radial (L) Abdomen: positive: Non-tender, Nml bowel sounds, Other (rounded, firm) Back: positive: Nml inspection Skin: positive: No rash, Warm, Dry, Pallor, Skin rash (see chart under notes for pictures.) Neurologic/Psychiatric: positive: Oriented x3, CN's nml (2-12), Weakness, Sensory loss, Depressed mood/affect Reflexes: Bicep (R): 3+, Bicep (L): 3+ - Lab Results Fish Bones: 09/28/18 04:46 09/28/18 04:46 Other Labs: Lab Results x24hrs 09/28/18 09/28/18 09/28/18 Range/Units 04:46 04:46 04:46 WBC 14.4 H (4.8-10.8) x10^3/uL RBC 3.99 L (4.70-6.10) 10^6/uL Hgb 11.8 L (14.0-18.0) g/dL Hct 36.6 L (42.0-52.0) % MCV 91.7 (80.0-94.0) fL MCH 29.6 (27.0-31.0) pg MCHC 32.3 (32.0-36.0) g/dL RDW 15.2 H (12.0-15.0) % Plt Count 98 L (130-450) 10^3/uL MPV 8.5 (7.4-11.4) fL Neut # (Auto) (1.5-6.6) 10^3/uL Lymph # (Auto) (1.5-3.5) 10^3/uL [place] # (Auto) (0.0-1.0) 10^3/uL Eos # (Auto) (0.0-0.7) 10^3/uL Baso # (Auto) (0.0-0.1) 10^3/uL Absolute Nucleated RBC x10^3/uL Nucleated RBC % /100WBC PT (9.9-12.6) secs INR (0.8-1.2) Sodium 130 L (135-145) mmol/L Potassium 5.0 (3.5-5.0) mmol/L Chloride 99 L (101-111) mmol/L Carbon Dioxide 20 L (21-32) mmol/L Anion Gap 11.0 (6-13) BUN 41 H (6-20) mg/dL Creatinine 1.2 (0.6-1.2) mg/dL Estimated GFR (MDRD) 60 L (>89) Glucose 133 H (70-100) mg/dL Glycated Hemoglobin (4.6-6.2) % Estim Average Glucose (70-100) Lactic Acid (0.5-2.2) mmol/L Calcium 8.2 L (8.5-10.3) mg/dL Magnesium (1.7-2.8) mg/dL Total Bilirubin (0.2-1.0) mg/dL AST (10-42) IU/L ALT (10-60) IU/L Alkaline Phosphatase (42-121) IU/L B-Natriuretic Peptide 818 H (5-100) pg/mL Total Protein (6.7-8.2) g/dL Albumin (3.2-5.5) g/dL Globulin (2.1-4.2) g/dL Albumin/Globulin Ratio (1.0-2.2) Lipase (22-51) U/L 09/28/18 09/27/18 09/27/18 Range/Units 04:46 22:38 19:30 WBC (4.8-10.8) x10^3/uL RBC (4.70-6.10) 10^6/uL Hgb (14.0-18.0) g/dL Hct (42.0-52.0) % MCV (80.0-94.0) fL MCH (27.0-31.0) pg MCHC (32.0-36.0) g/dL RDW (12.0-15.0) % Plt Count (130-450) 10^3/uL MPV (7.4-11.4) fL Neut # (Auto) (1.5-6.6) 10^3/uL Lymph # (Auto) (1.5-3.5) 10^3/uL [place] # (Auto) (0.0-1.0) 10^3/uL Eos # (Auto) (0.0-0.7) 10^3/uL Baso # (Auto) (0.0-0.1) 10^3/uL Absolute Nucleated RBC x10^3/uL Nucleated RBC % /100WBC PT 29.5 H (9.9-12.6) secs INR 2.6 H (0.8-1.2) Sodium (135-145) mmol/L Potassium (3.5-5.0) mmol/L Chloride (101-111) mmol/L Carbon Dioxide (21-32) mmol/L Anion Gap (6-13) BUN (6-20) mg/dL Creatinine (0.6-1.2) mg/dL Estimated GFR (MDRD) (>89) Glucose (70-100) mg/dL Glycated Hemoglobin 6.1 (4.6-6.2) % Estim Average Glucose 128 H (70-100) Lactic Acid 1.6 (0.5-2.2) mmol/L Calcium (8.5-10.3) mg/dL Magnesium (1.7-2.8) mg/dL Total Bilirubin (0.2-1.0) mg/dL AST (10-42) IU/L ALT (10-60) IU/L Alkaline Phosphatase (42-121) IU/L B-Natriuretic Peptide (5-100) pg/mL Total Protein (6.7-8.2) g/dL Albumin (3.2-5.5) g/dL Globulin (2.1-4.2) g/dL Albumin/Globulin Ratio (1.0-2.2) Lipase (22-51) U/L 09/27/18 09/27/18 09/27/18 Range/Units 19:30 19:30 19:30 WBC (4.8-10.8) x10^3/uL RBC (4.70-6.10) 10^6/uL Hgb (14.0-18.0) g/dL Hct (42.0-52.0) % MCV (80.0-94.0) fL MCH (27.0-31.0) pg MCHC (32.0-36.0) g/dL RDW (12.0-15.0) % Plt Count (130-450) 10^3/uL MPV (7.4-11.4) fL Neut # (Auto) (1.5-6.6) 10^3/uL Lymph # (Auto) (1.5-3.5) 10^3/uL [place] # (Auto) (0.0-1.0) 10^3/uL Eos # (Auto) (0.0-0.7) 10^3/uL Baso # (Auto) (0.0-0.1) 10^3/uL Absolute Nucleated RBC x10^3/uL Nucleated RBC % /100WBC PT (9.9-12.6) secs INR (0.8-1.2) Sodium 128 L (135-145) mmol/L Potassium 4.8 (3.5-5.0) mmol/L Chloride 98 L (101-111) mmol/L Carbon Dioxide 23 (21-32) mmol/L Anion Gap 7.0 (6-13) BUN 40 H (6-20) mg/dL Creatinine 1.2 (0.6-1.2) mg/dL Estimated GFR (MDRD) 60 L (>89) Glucose 132 H (70-100) mg/dL Glycated Hemoglobin (4.6-6.2) % Estim Average Glucose (70-100) Lactic Acid (0.5-2.2) mmol/L Calcium 8.4 L (8.5-10.3) mg/dL Magnesium 2.4 (1.7-2.8) mg/dL Total Bilirubin 0.9 (0.2-1.0) mg/dL AST 25 (10-42) IU/L ALT 21 (10-60) IU/L Alkaline Phosphatase 154 H (42-121) IU/L B-Natriuretic Peptide 692 H (5-100) pg/mL Total Protein 6.8 (6.7-8.2) g/dL Albumin 3.4 (3.2-5.5) g/dL Globulin 3.4 (2.1-4.2) g/dL Albumin/Globulin Ratio 1.0 (1.0-2.2) Lipase 19 L (22-51) U/L 09/27/18 Range/Units 19:30 WBC 12.2 H (4.8-10.8) x10^3/uL RBC 3.99 L (4.70-6.10) 10^6/uL Hgb 11.9 L (14.0-18.0) g/dL Hct 36.1 L (42.0-52.0) % MCV 90.6 (80.0-94.0) fL MCH 29.8 (27.0-31.0) pg MCHC 32.9 (32.0-36.0) g/dL RDW 15.7 H (12.0-15.0) % Plt Count 102 L (130-450) 10^3/uL MPV 8.6 (7.4-11.4) fL Neut # (Auto) 9.6 H (1.5-6.6) 10^3/uL Lymph # (Auto) 1.2 L (1.5-3.5) 10^3/uL [place] # (Auto) 1.2 H (0.0-1.0) 10^3/uL Eos # (Auto) 0.0 (0.0-0.7) 10^3/uL Baso # (Auto) 0.1 (0.0-0.1) 10^3/uL Absolute Nucleated RBC 0.00 x10^3/uL Nucleated RBC % 0.0 /100WBC PT (9.9-12.6) secs INR (0.8-1.2) Sodium (135-145) mmol/L Potassium (3.5-5.0) mmol/L Chloride (101-111) mmol/L Carbon Dioxide (21-32) mmol/L Anion Gap (6-13) BUN (6-20) mg/dL Creatinine (0.6-1.2) mg/dL Estimated GFR (MDRD) (>89) Glucose (70-100) mg/dL Glycated Hemoglobin (4.6-6.2) % Estim Average Glucose (70-100) Lactic Acid (0.5-2.2) mmol/L Calcium (8.5-10.3) mg/dL Magnesium (1.7-2.8) mg/dL Total Bilirubin (0.2-1.0) mg/dL AST (10-42) IU/L ALT (10-60) IU/L Alkaline Phosphatase (42-121) IU/L B-Natriuretic Peptide (5-100) pg/mL Total Protein (6.7-8.2) g/dL Albumin (3.2-5.5) g/dL Globulin (2.1-4.2) g/dL Albumin/Globulin Ratio (1.0-2.2) Lipase (22-51) U/L ABX Reporting Has patient been on IV antibiotics over the past 48 hours?: Yes Sepsis Event Note (H) - Evaluation Current Stage of Sepsis: Ruled out Possible source of Sepsis: positive: Pulmonary - Sepsis Criteria Sepsis Criteria: Recorded Heart Rate greater than 90 bpm, WBC count greater than 12,000 or less than 4000 Assessment/Plan - Problem List (1) Right heart failure, NYHA class 3 Impression: From an echo dated 07/26/2018, the patient was found to have biventricle enlargement and an RVSP of 51 mmHg. He has known MAGDALENO and now stage 4 lung cancer since March of 2018. He states that over the past week, his leg edema and abdominal girth has increased. He has been so debilitated due to his profound leg edema, only taking shuffling steps. He has been started on Lasix IV at 40mg, now increased to 80 mg IV. He has not had very generous urine output, so I have ordered an indwelling zafar for accurate I/O. Plan: Await new echo results, start low dose metoprolol, increase lasix dose, insert zafar for accurate I/Os and ensure ease of emptying. Daily weights, vital signs. (2) Cor pulmonale Impression: From an echo dated 07/26/2018, the patient was found to have biventricle enlargement and an RVSP of 51 mmHg. He has known MAGDALENO, which he states that he is compliant with, and now stage 4 lung cancer since March of 2018. He states that over the past week, his leg edema and abdominal girth has increased. He is only on hydralyzine at home. Plan: After this acute CHF exacerbation, we will consider spironolactone for home use. Continue home CPAP at night with 3L bleed in. Respiratory care with nebs. (3) Type 2 diabetes mellitus Impression: The patient has a good HgA1C of 6.1%, and is prescribed Metformin. He and his state that he has been diabetic for the past ~5 years. He unfortunately has had anorexia at home for the past week and has been steadily loosing weight since his diagnosis of stage 4 lung CA in March 2018. Plan: Low dose nightly Lantus, SSI and sugar checks. Regular diet for now as he has no appetite. Qualifiers: Diabetes mellitus check out cashier insulin use: without check out cashier use Diabetes mellitus complication status: without complication Qualified Code(s): E11.9 - Type 2 diabetes mellitus without complications (4) Malignant neoplasm of right lung stage 4 Impression: The patient and his are very interested in a Palliative care consult due to the patient's increased needs physically and future plans with oncology, and course of treatment. The patient states that he does not know the actual prognosis of this disease and continues with out patient treatment. Plan: Continue supportive care, Palliative care consult. (5) MAGDALENO on CPAP Impression: The patient states that he has been on CPAP for at least the past 25 years, and states that he never sleeps without it. It is in his room on exam today. Plan: Ensure home CPAP orders are on the chart, continue use at HS for sleeping. Bleed in O2 @ 3L. (6) Oxygen dependent Impression: The patient has recently been prescribed home oxygen as per PCP and remains at 3L nasal cannula. He complains of a dry mouth, without evidence of thrush. Plan: Continue respiratory care, nebs, oxygen and nightly CPAP. (7) BPH with obstruction/lower urinary tract symptoms Impression: The patient is prescribed doxazosin at home, but was found to be retaining urine overnight. I have ordered an indwelling zafar in light of this acute CHF and the amount of diuresis that will be needed, and changed his med to Flomax. Plan: Continue zafar, start Flomax, accurate I/Os.
[2018-09-28] MEDS ORDERED: FUROSEMIDE 20 MG/2 ML VIAL IVP ONE (11:34)
[2018-09-28] MEDS ORDERED: LIDOCAINE 2% URO-JET 5 ML SYRINGE UR PRN (11:35)
[2018-09-28] MEDS: LORATADINE 10 MG TABLET PO SCH (13:35)
[2018-09-28] MEDS: WARFARIN 5 MG TABLET PO SCH (13:35)
[2018-09-28] MEDS: TAMSULOSIN 0.4 MG CAPSULE PO SCH (13:35)
[2018-09-28] MEDS: HYDROcod/ACETAM 5/325 MG TABLET PO PRN ×3 (13:36→20:37)
[2018-09-28] MEDS: LEVALBUTEROL 1.25 MG/3 ML NEB INH PRN ×2 (13:38→20:12)
[2018-09-28] MEDS: MORPHINE ER 15 MG TABLET PO SCH (15:57)
[2018-09-28 16:32] LABS: BILIRUBIN,URINE NEGATIVE (NEGATIVE); GLUCOSE, URINE (UA) NEGATIVE (NEGATIVE); KETONES,URINE (UA) NEGATIVE (NEGATIVE); LEUKOCYTE ESTERASE, URINE TRACE (NEGATIVE); NITRITE,URINE NEGATIVE (NEGATIVE); OCCULT BLOOD,URINE LARGE (NEGATIVE); PROTEIN,URINE NEGATIVE (NEGATIVE); UROBILINOGEN,URINE 0.2 (NORMAL) E.U./dL (NORMAL)
[2018-09-28 16:53] LABS: BACTERIA,URINE Rare /HPF (None Seen); CASTS, URINE 3-5 Hyaline Casts /LPF; CLARITY,URINE CLEAR (CLEAR); MUCUS,URINE Few Strands; RBC,URINE TNTC /HPF (0-5); SQUAMOUS EPITHELIAL CELL,UR NONE SEEN (<= Few)
[2018-09-28] MEDS: METOPROLOL SUCCINATE 25 MG TABLET PO SCH (17:07)
[2018-09-28] MEDS: FUROSEMIDE 40 MG/4 ML VIAL IVP SCH (20:37)
[2018-09-28] MEDS ORDERED: INSULIN GLARGINE 300 UNIT/3 ML PEN SUBQ SCH (21:00)
[2018-09-29] MEDS: MORPHINE ER 15 MG TABLET PO SCH ×4 (00:06→22:09)
[2018-09-29] MEDS: SODIUM CHLORIDE FLUSH 0.9% 10 ML SYRINGE IVP SCH ×4 (00:09→23:49)
[2018-09-29 05:06] LABS: HGB - HEMOGLOBIN 11.5 g/dL (14.0-18.0); MEAN CORPUSCULAR HEMOGLOBIN 29.9 pg (27.0-31.0); MEAN CORPUSCULAR HGB CONC 32.7 g/dL (32.0-36.0); MEAN CORPUSCULAR VOLUME 91.5 fL (80.0-94.0); MEAN PLATELET VOLUME 8.2 fL (7.4-11.4); RED BLOOD COUNT 3.83 10^6/uL (4.70-6.10); RED CELL DISTRIBUTION WIDTH 15.4 % (12.0-15.0); WHITE BLOOD COUNT 11.5 x10^3/uL (4.8-10.8)
[2018-09-29 05:07] LABS: INR 2.6 (0.8-1.2); PT - PROTHROMBIN TIME 28.8 secs (9.9-12.6)
[2018-09-29 05:16] LABS: CALCIUM 8.2 mg/dL (8.5-10.3); CREATININE 1.2 mg/dL (0.6-1.2)
[2018-09-29] MEDS: METOPROLOL SUCCINATE 25 MG TABLET PO SCH ×2 (07:33→16:04)
[2018-09-29] MEDS: INSULIN ASPART 300 UNIT/3 ML PEN SUBQ SCH ×4 (07:36→21:28)
[2018-09-29] MEDS ORDERED: ENOXAPARIN 40 MG/0.4 ML SYRINGE SUBQ SCH (09:00)
[2018-09-29] MEDS: SODIUM CHLORIDE FLUSH 0.9% 10 ML SYRINGE IVP PRN (09:16)
[2018-09-29] MEDS: HYDROcod/ACETAM 5/325 MG TABLET PO PRN (09:17)
[2018-09-29] MEDS: FAMOTIDINE 20 MG TABLET PO SCH ×2 (09:17→21:27)
[2018-09-29] MEDS: ATORVASTATIN 40 MG TABLET PO SCH (09:17)
[2018-09-29] MEDS: KETOCONAZOLE 2% CREAM 15 GM TUBE TOP SCH ×2 (09:17→21:30)
[2018-09-29] MEDS: WARFARIN 5 MG TABLET PO SCH (09:17)
[2018-09-29] MEDS: TAMSULOSIN 0.4 MG CAPSULE PO SCH (09:17)
[2018-09-29] MEDS: LORATADINE 10 MG TABLET PO SCH (09:17)
[2018-09-29] MEDS: FUROSEMIDE 40 MG/4 ML VIAL IVP SCH ×2 (09:17→21:24)
[2018-09-29] MEDS: POLYETHYLENE GLYCOL 3350 17 GM PACKET PO SCH (09:18)
[2018-09-29] MEDS: ASPIRIN EC 81 MG TABLET PO SCH (09:18)
[2018-09-29] MEDS ORDERED: METOPROLOL SUCCINATE 25 MG TABLET PO ONE (11:28)
[2018-09-29] MEDS: FLUCONAZOLE 100 MG TABLET PO SCH (13:22)
[2018-09-29] MEDS: NYSTATIN POWDER 15 GM TOP SCH ×2 (13:22→21:31)
[2018-09-29] MEDS: DIGOXIN 500 MCG/2 ML AMP IVP SCH ×3 (13:24→21:42)
--- NOTE | 2018-09-29 13:36 | PROVIDER PROGRESS NOTE ---
Subjective - Prog Note Date Prog Note Date: 09/29/18 Prog Note Time: 13:32 - Subjective Pt reports feeling: Improved Subjective: Chintan complains of pain to his seat bones and is having difficulty with getting comfortable. He denies SOB, chest pain, rashes, or a new productive cough. He and his are looking forward to meeting with Evie Dale, Palliative care today. Objective - Vital Signs/Intake & Output Reviewed Vital Signs: Yes Vital Signs: Vital Signs x48h Temp Pulse Pulse Resp BP Pulse Ox 09/29/18 13:24 124 H 09/29/18 12:52 130 H 20 84/44 L 100 09/29/18 08:05 36.3 C L 140 H 21 112/66 94 Intake & Output: Intake & Output 09/26/18 09/27/18 09/28/18 09/29/18 23:59 23:59 23:59 23:59 Intake Total 110 1190 740 Output Total 50 2525 1725 Balance 60 -5425 -770 - Objective General Appearance: positive: Alert, Moderate distress Eyes Bilateral: positive: PERRL Eyes: OU Conjunctivae pale ENT: positive: Pharynx nml, No signs of dehydration Neck: positive: Thyroid nml, No JVD Respiratory: positive: Chest non-tender, No respiratory distress, Rhonchi Cardiovascular: positive: No gallop, Irregularly irregular, Systolic murmur Peripheral Pulses: 2+ Radial (R), 2+ Radial (L) Abdomen: positive: Non-tender, Nml bowel sounds, Other (obese, soft) Back: positive: Nml inspection Skin: positive: No rash, Warm, Dry, Pallor Extremities: positive: Non-tender, Pedal edema (pitting 2-3 BLE), Joint swelling Neurologic/Psychiatric: positive: Oriented x3, CN's nml (2-12), Motor nml Reflexes: Bicep (R): 3+, Bicep (L): 3+ - Lab Results Fish Bones: 09/30/18 05:45 09/30/18 05:45 Other Labs: Lab Results x24hrs 09/29/18 09/29/18 09/29/18 Range/Units 04:40 04:40 04:40 WBC (4.8-10.8) x10^3/uL RBC (4.70-6.10) 10^6/uL Hgb (14.0-18.0) g/dL Hct (42.0-52.0) % MCV (80.0-94.0) fL MCH (27.0-31.0) pg MCHC (32.0-36.0) g/dL RDW (12.0-15.0) % Plt Count (130-450) 10^3/uL MPV (7.4-11.4) fL PT 28.8 H (9.9-12.6) secs INR 2.6 H (0.8-1.2) Sodium 132 L (135-145) mmol/L Potassium 4.1 (3.5-5.0) mmol/L Chloride 99 L (101-111) mmol/L Carbon Dioxide 24 (21-32) mmol/L Anion Gap 9.0 (6-13) BUN 44 H (6-20) mg/dL Creatinine 1.2 (0.6-1.2) mg/dL Estimated GFR (MDRD) 60 L (>89) Glucose 109 H (70-100) mg/dL Calcium 8.2 L (8.5-10.3) mg/dL B-Natriuretic Peptide 899 H (5-100) pg/mL Urine Color Urine Clarity (CLEAR) Urine pH (5.0-7.5) PH Ur Specific [place] (1.002-1.030) Urine Protein (NEGATIVE) mg/dL Urine Glucose (UA) (NEGATIVE) mg/dL Urine Ketones (NEGATIVE) mg/dL Urine Occult Blood (NEGATIVE) Urine Nitrite (NEGATIVE) Urine Bilirubin (NEGATIVE) Urine Urobilinogen (NORMAL) E.U./dL Ur Leukocyte Esterase (NEGATIVE) Urine RBC (0-5) /HPF Urine WBC (0-3) /HPF Ur Squamous Epith Cells (<= Few) Urine Bacteria (None Seen) /HPF Urine Casts /LPF Urine Mucus Urine Culture Comments 09/29/18 09/28/18 Range/Units 04:40 16:10 WBC 11.5 H (4.8-10.8) x10^3/uL RBC 3.83 L (4.70-6.10) 10^6/uL Hgb 11.5 L (14.0-18.0) g/dL Hct 35.1 L (42.0-52.0) % MCV 91.5 (80.0-94.0) fL MCH 29.9 (27.0-31.0) pg MCHC 32.7 (32.0-36.0) g/dL RDW 15.4 H (12.0-15.0) % Plt Count 97 L (130-450) 10^3/uL MPV 8.2 (7.4-11.4) fL PT (9.9-12.6) secs INR (0.8-1.2) Sodium (135-145) mmol/L Potassium (3.5-5.0) mmol/L Chloride (101-111) mmol/L Carbon Dioxide (21-32) mmol/L Anion Gap (6-13) BUN (6-20) mg/dL Creatinine (0.6-1.2) mg/dL Estimated GFR (MDRD) (>89) Glucose (70-100) mg/dL Calcium (8.5-10.3) mg/dL B-Natriuretic Peptide (5-100) pg/mL Urine Color YELLOW Urine Clarity CLEAR (CLEAR) Urine pH 5.0 (5.0-7.5) PH Ur Specific [place] 1.020 (1.002-1.030) Urine Protein NEGATIVE (NEGATIVE) mg/dL Urine Glucose (UA) NEGATIVE (NEGATIVE) mg/dL Urine Ketones NEGATIVE (NEGATIVE) mg/dL Urine Occult Blood LARGE H (NEGATIVE) Urine Nitrite NEGATIVE (NEGATIVE) Urine Bilirubin NEGATIVE (NEGATIVE) Urine Urobilinogen 0.2 (NORMAL) (NORMAL) E.U./dL Ur Leukocyte Esterase TRACE H (NEGATIVE) Urine RBC TNTC H (0-5) /HPF Urine WBC 4-5 (0-3) /HPF Ur Squamous Epith Cells NONE SEEN (<= Few) Urine Bacteria Rare (None Seen) /HPF Urine Casts 3-5 Hyaline Casts /LPF Urine Mucus Few Strands Urine Culture Comments INDICATED - Diagnostic Imaging Diagnostic Imaging Results: positive: Final report reviewed Diagnostic Imaging Comments: EXAM: CHEST RADIOGRAPHY EXAM DATE: 09/27/2018 08:51 PM. IMPRESSION: 1. Right upper lobe mass. 2. Right lung and left lower lobe opacity suspicious for infiltrates, asymmetric edema or lymphangitic spread of tumor. 3. Small effusions. No pneumothorax. ABX Reporting Has patient been on IV antibiotics over the past 48 hours?: Yes Sepsis Event Note (H) - Evaluation Current Stage of Sepsis: Ruled out Possible source of Sepsis: positive: Pulmonary - Sepsis Criteria Sepsis Criteria: Recorded Heart Rate greater than 90 bpm, WBC count greater than 12,000 or less than 4000 Assessment/Plan - Problem List (1) Right heart failure, NYHA class 3 Impression: Echo results from 09/28/18 show an EF of 60%, pulmonary HTN with an RVSP of 64 mmHg, and a small pericardial effusion. He has known MAGDALENO and now stage 4 lung cancer since March of 2018. He states that over the past week, his leg edema and abdominal girth has increased. He has been so debilitated due to his profound leg edema, only taking shuffling steps. He has been started on Lasix IV at 40mg, now increased to 80 mg IV. He has not had very generous urine output, so I have ordered an indwelling zafar for accurate I/O. Plan: Await new echo results, start low dose metoprolol, increase lasix dose, insert zafar for accurate I/Os and ensure ease of emptying. Daily weights, vital signs. (2) Chronic atrial fibrillation Impression: The patient is anticoagulated with warfarin which was approved by his oncology team. Today his INR is at 2.6 and he remains on Warfarin at 3mg that was adjusted down due to the antibiotic load that may increased the effect of coumadin. Plan: Continue rate control with daily digoxin after loading doses, metoprolol, telemetry, Daily INRs and watch for signs of bleeding. (3) Pericardial effusion Impression: An echocardiogram was completed which shows an impressive pericardial effusion that is new since his last echo. Plan: Low dose steroids, and use rate control medication to ease the work load. (4) Pneumonia Impression: The patient had evidence of infiltrates on initial chest x-ray, and with him remaining tachycardic, ongoing fatigue, increased oxygen needs and an elevated WBC count, he has been continued on IV ampicillin-sulbactam and azithromycin to treat bilateral pneumonia. Plan: Respiratory care, IV antibiotics, a probiotic, low dose IV steroids, daily labs, and monitor for improvement. (5) Cor pulmonale Impression: Echo results show an RVSP at rest of 64 mmHg that is increased from 51 mmHg in July, in addition, he has RV enlargement. He has known MAGDALENO, which he states that he is compliant with, and now stage 4 lung cancer since March of 2018. He states that over the past week, his leg edema and abdominal girth has increased. He has been treated with high dose lasix since admission. Plan: After this acute CHF exacerbation, we will consider spironolactone for home use. Continue home CPAP at night with 3L bleed in. Respiratory care with nebs. (6) Type 2 diabetes mellitus Impression: The patient has a good HgA1C of 6.1%, and is prescribed Metformin. He and his state that he has been diabetic for the past ~5 years. He unfortunately has had anorexia at home for the past week and has been steadily loosing weight since his diagnosis of stage 4 lung CA in March 2018. Since his early AM sugar was low today, I have discontinued his Lantus of 5 that was added to replace his home Metformin. Plan: Continue SSI and sugar checks. Regular diet for now as he has no appetite. Qualifiers: Diabetes mellitus halfway insulin use: without halfway use Diabetes mellitus complication status: without complication Qualified Code(s): E11.9 - Type 2 diabetes mellitus without complications (7) Malignant neoplasm of right lung stage 4 Impression: The patient and his are very interested in a Palliative care consult due to the patient's increased needs physically and future plans with oncology, and course of treatment. The patient states that he does not know the actual prognosis of this disease and continues with out patient treatment. Plan: Continue supportive care, Palliative care consult. (8) MAGDALENO on CPAP Impression: The patient states that he has been on CPAP for at least the past 25 years, and states that he never sleeps without it. It is in his room on exam today. Plan: Ensure home CPAP orders are on the chart, continue use at HS for sleeping. Bleed in O2 @ 3L. (9) Oxygen dependent Impression: The patient has recently been prescribed home oxygen as per PCP and remains at 3L nasal cannula. He complains of a dry mouth, without evidence of thrush. Plan: Continue respiratory care, nebs, oxygen and nightly CPAP. (10) BPH with obstruction/lower urinary tract symptoms Impression: The patient is prescribed doxazosin at home, but was found to be retaining urine overnight. He continues with an indwelling zafar in light of this acute CHF and the amount of diuresis that will be needed, and changed his med to Flomax. Plan: Continue zafar, continue Flomax, accurate I/Os.
[2018-09-29] MEDS ORDERED: SODIUM CHLORIDE FLUSH 0.9% 10 ML SYRINGE ONE (13:53)
[2018-09-29] MEDS: AMPICILLIN/SULBACTAM 1.5 GM in SODIUM CHLORIDE 0.9% MINIBAG 100 ML IV SCH ×2 (14:00→18:44)
--- NOTE | 2018-09-29 14:22 | CONSULTATION NOTE ---
Palliative Care Consultation - Referral Referring Provider: Na WHITLEY Time of Visit: [id number] Referral setting: Hospitalized patient Referral Reason: Metastatic Lung Cancer/Goals of Care - Information Sources Records reviewed: RN notes reviewed, Previous records reviewed History/Review of Systems obtained from: Patient, Family ( Haylee present for visit) Exam limitations: No limitations - History of Present Illness Brief History of Present Illness: This is a 73-year-old gentleman who presents to [facility] with acute shortness of breath functional decline, increased lower extremity edema, has history of confusion. 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 He originally presented with shortness of breath in February, he continued to have a productive cough, and workup concluded in May with a CT scan of the chest that did reveal right upper lobe mass. He did have a biopsy on 07/08 that was consistent with moderately differentiated adenocarcinoma. And his most recent PET scan done on 08/05/2018 showed a cavitary right upper lobe mass approximately 43 x 34 mm, hypermetabolic nodes in the AP window, periaortic, right paratracheal, left highest mediastinal, as well as bilateral supraclavicular courtney uptake. A left adrenal node thought to be metastatic disease, as well as a lesion at T5 and mild focal right inferior sacral uptake, which is the focus of his most persistent pain. At that point in time he was shown to have a trace pericardial effusion. He has been having progressive pain, he has been having progressive pain did see palliative care which started him on MS Contin time-released, he does perceive his pain is continue to progress but does not want his medication titrated at this point in time. Is also struggled with anorexia, weight loss, fatigue, as well as constipation. Currently he is having difficulty with tachycardia, hypotension, atrial fib with rapid ventricular response, increased lower extremity edema, BPH, with zafar placement. He was recently end of August put on warfarin for atrial fib. He has known diabetes without complication, chronic kidney disease stage III, hypertension, newly on oxygen for hypoxia. Palliative care has been asked to see patient regarding high symptom burden, stage IV lung cancer, patient newly diagnosed with out advanced directives, and to define goals of care. Medical/Surgical History - Past Medical History Cardiovascular: reports: Hypertension, High cholesterol, Atrial fibrillation Respiratory: reports: Shortness of breath, Sleep apnea, CPAP use, Other Neuro: None Endocrine/Autoimmune: reports: Type 2 diabetes GI: reports: GERD, Chronic constipation : reports: Benign prostate hypertrophy Psych: reports: Anxiety Musculoskeletal: reports: Osteoarthritis, Other (pain from bone mets/back and sacral) Derm: reports: None MRSA Hx?: No Other Past Medical History: lung cancer that metastized to bones in pelvis and back and adrenal glands - Past Surgical History /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 He has been over 32 years to Haylee, they have been together for 42 years. He has been on [facility] for 25 years. They have 1 son that is hers, but he has raised him since he is 10 years old. His name is Solomon, is very concerned about his parents, they did also have 3 grandchildren. Unfortunately he lives in [place] but is very supportive. does have underlying anxiety but feels she is currently doing okay, will continue to work with her primary care provider.) Family History - Family History Family History: Mother: , COPD/Emphysema, Father: , [place], Sister: Alive and Well, Diabetes, Type 2 Medications/Allergies - Medications Active Medication List: Active Medications Acetaminophen (Tylenol) 650 mg PO Q4HR PRN PRN Reason: Pain 1 to 4 Hydrocodone Bitart/Acetaminophen (Milton 5/325) 2 tab PO Q4H PRN PRN Reason: PAIN Last Admin: 09/29/18 09:17 Dose: 2 tab Aspirin (Ecotrin) 81 mg PO DAILY [facility] Last Admin: 09/29/18 09:18 Dose: Not Given Atorvastatin Calcium (Lipitor) 40 mg PO DAILY [facility] Last Admin: 09/29/18 09:17 Dose: 40 mg Digoxin (Lanoxin Inj) 250 mcg IVP Q4H [facility] Stop: 09/29/18 21:01 Last Admin: 09/29/18 13:24 Dose: 250 mcg Famotidine (Pepcid) 20 mg PO BID [facility] Last Admin: 09/29/18 09:17 Dose: 20 mg Fluconazole (Diflucan) 100 mg PO DAILY [facility] Last Admin: 09/29/18 13:22 Dose: 100 mg Furosemide (Lasix Inj 40 Mg Vial) 40 mg IVP BID [facility] Heparin Sodium (Beef Lung) () 30 - 50 unit IVP PRN PRN PRN Reason: Port Protocol (<24 hours) Last Admin: 09/29/18 09:16 Dose: 50 unit Hydromorphone HCl (Dilaudid Inj Carp) 1 mg IVP Q2HR PRN PRN Reason: PAIN Ampicillin Sodium/Sulbactam (Sodium 1.5 gm/ Sodium Chloride) 100 mls @ 200 mls/hr IV Q6HR [facility] Azithromycin 500 mg/ Sodium (Chloride) 250 mls @ 250 mls/hr IV DAILY [facility] Insulin Aspart (Novolog) 1 - 9 unit SUBQ 0800,1200,1700,2100 [facility]; Protocol Last Admin: 09/29/18 11:48 Dose: Not Given Ketoconazole (Nizoral 2% Cream) 1 applic TOP BID [facility] Last Admin: 09/29/18 09:17 Dose: 1 applic Levalbuterol HCl (Xopenex) 1.25 mg INH Q2HR PRN PRN Reason: Wheezing Last Admin: 09/28/18 20:12 Dose: 1.25 mg Lidocaine HCl (Xylocaine Uro-Jet 2%) 2.5 ml UR Q6H PRN PRN Reason: PAIN Last Admin: 09/28/18 13:22 Dose: 2.5 ml Loratadine (Claritin) 10 mg PO DAILY [facility] Last Admin: 09/29/18 09:17 Dose: 10 mg Metoprolol Succinate (Toprol Xl) 25 mg PO BIDWM [facility] Metoprolol Tartrate (Lopressor Inj) 5 mg IVP Q4HR PRN PRN Reason: Tachycardia Morphine Sulfate (Morphine (Carpuject)) 2 mg IVP Q4HR PRN PRN Reason: Pain 8 to 10 Morphine Sulfate () 15 mg PO Q8H [facility] Last Admin: 09/29/18 07:32 Dose: 15 mg Nystatin (Nystop) 1 applic TOP BID [facility] Last Admin: 09/29/18 13:22 Dose: 1 applic Ondansetron HCl (Zofran Inj) 4 mg IVP Q6HR PRN PRN Reason: Nausea / Vomiting Polyethylene Glycol (Miralax) 17 gm PO DAILY [facility] Last Admin: 09/29/18 09:18 Dose: Not Given Prochlorperazine Edisylate (Compazine Inj) 10 mg IVP Q6HR PRN PRN Reason: Nausea / Vomiting Saccharomyces Boulardii (Florastor) 500 mg PO BIDWM [facility] Sodium Chloride (Normal Saline Flush 0.9%) 10 ml IVP PRN PRN PRN Reason: NEEDED PER PROVIDER ORDERS Last Admin: 09/29/18 09:16 Dose: 10 ml Sodium Chloride (Normal Saline Flush 0.9%) 10 ml IVP 0100,0900,1700 [facility] Last Admin: 09/29/18 09:16 Dose: 10 ml Sodium Chloride (Normal Saline Flush 0.9%) 20 ml IVP PRN PRN PRN Reason: After Blood Draw Warfarin Sodium (Coumadin) 3 mg PO 1500 [facility] Zolpidem Tartrate (Ambien) 5 mg PO QPM PRN PRN Reason: Insomnia Atorvastatin Calcium 40 mg PO DAILY 10/14/16 Doxazosin Mesylate 8 mg PO DAILY 10/14/16 Lisinopril 40 mg PO DAILY 10/14/16 amLODIPine [Norvasc] 10 mg PO DAILY 10/14/16 metFORMIN [Glucophage] 500 mg PO BID 10/14/16 Acetaminophen [Extra Strength Non-Aspirin] 500 mg PO BID 09/28/18 Cholecalciferol (Vitamin D3) [Vitamin D3] 2,000 unit PO DAILY 09/28/18 HYDROcod/ACETAM 5/325 [Milton 5/325] 1 - 2 tab PO Q4H PRN 09/28/18 Loratadine [Allergy] 10 mg PO DAILY 09/28/18 Morphine Sulfate [Morphine Sulfate ER] 15 mg PO Q8H 09/28/18 Warfarin Sodium 5 mg PO DAILY 09/28/18 - Allergies Allergies/Adverse Reactions: Allergies Allergy/AdvReac Type Severity Reaction Status Date / Time No Known Drug Allergies Allergy Verified 09/27/18 19:28 Review of Systems - Constitutional Constitutional: reports: Fatigue, Poor appetite, Weight loss - Eyes Eyes: reports: Vision loss - Ears, Nose & Throat Ears, Nose & Throat: reports: Other (has dentures upper) - Cardiovascular Cardiovascular: reports: Irregular heart rate, Edema, Exertional dyspnea, Decr. exercise tolerance, Other (newly on oxygen related to hypoxia). denies: Palpitations, Chest pain - Respiratory Respiratory: reports: Cough, Orthopnea, SOB at rest, SOB with exertion, Other (cpap) - Gastrointestinal Gastrointestinal: reports: Constipation, Poor appetite, Early satiety, Other (taste changes). denies: Nausea - Genitourinary Genitourinary: reports: Other (currently has zafar) - Musculoskeletal Musculoskeletal: reports: Muscle weakness, Other (Fairly rapid progressive functional decline, was able to weeks ago to walk though with paced activity into his chemotherapy treatment, then used 1 cane, then 2 canes, lastly is needed to use a walker. This is due to lower extremity weakness as well as dyspnea.) - Integumentary Integumentary: reports: Rash (noted after treatment; is improving right side of scrotal area) - Neurological Neurological: reports: General weakness, Memory problems (difficulty concentrating) - Psychiatric Psychiatric: reports: Anxiety - Endocrine Endocrine: reports: Diabetes type 2 - Hematologic/Lymphatic Hematologic/Lymphatic: reports: Recurrent infections (being treated for pnemonia) - All Other Systems All Other Systems: reports: Reviewed and negative Physical Exam - Vital Signs Vital Signs: Vital Signs x48h Temp Pulse Pulse Resp BP Pulse Ox 09/29/18 13:45 112 H 84/62 L 09/29/18 13:30 36.5 C 116 H 18 88/58 L 96 09/29/18 13:24 124 H 09/29/18 13:23 132 H 84/58 L 09/29/18 12:52 130 H 20 84/44 L 100 09/29/18 08:05 36.3 C L 140 H 21 112/66 94 - Physical Exam General Appearance: positive: Mild distress (shifting frequently; appears to be uncomfortable) Eyes Bilateral: positive: Normal inspection ENT: positive: Other (missing several upper teeth, front teeth) Neck: positive: Trachea midline Cardiovascular: positive: Irregular, Tachycardia, Other (muffled heart sounds) Respiratory: positive: Diminished throughout (minimal air movement noted). negative: Wheezes, Rales Abdomen: positive: Soft, Nml bowel sounds Skin: positive: Pallor Extremities: positive: Pedal edema ( feels has improved; 2+ up to mid calf) Neurologic/Psychiatric: positive: Oriented x3, Mood/affect nml, Flat affect Palliative Care - POLST Patient has POLST: No Pain: Pain worsening, Location (Most of severe pain is in the sacral area, worsening with sitting. Patient is shifting frequently through visit, cannot get comfortable in a chair. Also has pain in mid thoracic area radiates around right to left, as well as overall generalized discomfort from lower extremity edema. He has been on the MS Contin 3 times daily, using hydrocodone for breakthrough pain, reports he is quite stoic.) Tiredness/Fatigue: Severe (7-10) Drowsiness/Sedation: Mild (1-3) Nausea: None Depression: Moderate (4-6) Anxiety: Moderate (4-6) Dyspnea: Moderate (4-6) Anorexia: Severe (7-10), Weight loss Sleep: Variable sleep pattern Constipation: Yes, Opoid induced, Unmanaged Feelings of wellbeing/Perceived Quality of Life: Poor, Worsening Performance Status: worried about being able to bathe him at home, reports he is getting around with a walker but this is new for them. Is getting showerhead to assist with bathing as well as shower bench. Discussed increasing support through home health services, declined at this point in time but will revisit. Would recommend patient get PT eval, may be willing to consider support with a rehab focus. - Palliative Care Discussion: We discussed patient's understanding of his disease, patient does understand he has lung cancer, and that it is all through him. Does not understand R has been shared with his prognosis, though he does understand this is not curable. When reviewed what is most important, the top of the list is taking care of Haylee, when trying to do down further what this means, getting their chaparro and financial affairs in order and making sure he has set everything up for her. When discussed what is most important to him, it is spending time with family, does feel like it is progressing very fast, patient acknowledges continued decline. We did discuss the normal grief and loss process of losing independence, the uncertainty of living with a serious illness, and facing ones pending decline. They have not done any advanced care planning, we discussed CODE STATUS, reports he is "not ready yet" to consider not having CPR. We did discuss in the context of this, that there may be other factors weighing into this decision as we move forward, it would be helpful for me to understand what is most important to him and provided him some tools to read. We did discuss the importance of durable power of health workers compensation defense attorney, though by default it would go to Haylee, and they have only 1 son Solomon. Discussed was most important to Haylee, she reports she has been down this road before, with her mother. She was in assisted living, but they did have hospice, and she is aware of the implications regarding this. Both were appropriately tearful, discussed would be most helpful moving forward. We did acknowledge how complicated and difficult this is at this point in time. They do feel having some sense of prognosis moving forward that that would help them in their planning as far as what to expect. Are somewhat distressed by how "things are changing. Results - Lab Results Lab results reviewed: Yes Fish Bones: 09/29/18 04:40 09/29/18 04:40 Lab and Imaging Results: Lab Results x24hrs 09/29/18 09/29/18 09/29/18 Range/Units 04:40 04:40 04:40 WBC (4.8-10.8) x10^3/uL RBC (4.70-6.10) 10^6/uL Hgb (14.0-18.0) g/dL Hct (42.0-52.0) % MCV (80.0-94.0) fL MCH (27.0-31.0) pg MCHC (32.0-36.0) g/dL RDW (12.0-15.0) % Plt Count (130-450) 10^3/uL MPV (7.4-11.4) fL PT 28.8 H (9.9-12.6) secs INR 2.6 H (0.8-1.2) Sodium 132 L (135-145) mmol/L Potassium 4.1 (3.5-5.0) mmol/L Chloride 99 L (101-111) mmol/L Carbon Dioxide 24 (21-32) mmol/L Anion Gap 9.0 (6-13) BUN 44 H (6-20) mg/dL Creatinine 1.2 (0.6-1.2) mg/dL Estimated GFR (MDRD) 60 L (>89) Glucose 109 H (70-100) mg/dL Calcium 8.2 L (8.5-10.3) mg/dL B-Natriuretic Peptide 899 H (5-100) pg/mL Urine Color Urine Clarity (CLEAR) Urine pH (5.0-7.5) PH Ur Specific [place] (1.002-1.030) Urine Protein (NEGATIVE) mg/dL Urine Glucose (UA) (NEGATIVE) mg/dL Urine Ketones (NEGATIVE) mg/dL Urine Occult Blood (NEGATIVE) Urine Nitrite (NEGATIVE) Urine Bilirubin (NEGATIVE) Urine Urobilinogen (NORMAL) E.U./dL Ur Leukocyte Esterase (NEGATIVE) Urine RBC (0-5) /HPF Urine WBC (0-3) /HPF Ur Squamous Epith Cells (<= Few) Urine Bacteria (None Seen) /HPF Urine Casts /LPF Urine Mucus Urine Culture Comments 09/29/18 09/28/18 Range/Units 04:40 16:10 WBC 11.5 H (4.8-10.8) x10^3/uL RBC 3.83 L (4.70-6.10) 10^6/uL Hgb 11.5 L (14.0-18.0) g/dL Hct 35.1 L (42.0-52.0) % MCV 91.5 (80.0-94.0) fL MCH 29.9 (27.0-31.0) pg MCHC 32.7 (32.0-36.0) g/dL RDW 15.4 H (12.0-15.0) % Plt Count 97 L (130-450) 10^3/uL MPV 8.2 (7.4-11.4) fL PT (9.9-12.6) secs INR (0.8-1.2) Sodium (135-145) mmol/L Potassium (3.5-5.0) mmol/L Chloride (101-111) mmol/L Carbon Dioxide (21-32) mmol/L Anion Gap (6-13) BUN (6-20) mg/dL Creatinine (0.6-1.2) mg/dL Estimated GFR (MDRD) (>89) Glucose (70-100) mg/dL Calcium (8.5-10.3) mg/dL B-Natriuretic Peptide (5-100) pg/mL Urine Color YELLOW Urine Clarity CLEAR (CLEAR) Urine pH 5.0 (5.0-7.5) PH Ur Specific [place] 1.020 (1.002-1.030) Urine Protein NEGATIVE (NEGATIVE) mg/dL Urine Glucose (UA) NEGATIVE (NEGATIVE) mg/dL Urine Ketones NEGATIVE (NEGATIVE) mg/dL Urine Occult Blood LARGE H (NEGATIVE) Urine Nitrite NEGATIVE (NEGATIVE) Urine Bilirubin NEGATIVE (NEGATIVE) Urine Urobilinogen 0.2 (NORMAL) (NORMAL) E.U./dL Ur Leukocyte Esterase TRACE H (NEGATIVE) Urine RBC TNTC H (0-5) /HPF Urine WBC 4-5 (0-3) /HPF Ur Squamous Epith Cells NONE SEEN (<= Few) Urine Bacteria Rare (None Seen) /HPF Urine Casts 3-5 Hyaline Casts /LPF Urine Mucus Few Strands Urine Culture Comments INDICATED Impression and Recommendations - Palliative Care Impression: This is a 73-year-old gentleman who presents with serious stage IV lung adenocarcinoma, has initiated immunotherapy pembrolizumab 2 weeks ago. Patient now presents with acute CHF, possible pneumonia, and cardiac issues. Patient with recent diagnosis, has not participated in advanced care planning, but is acutely ill. Palliative care to continue to work with patient and family regarding defining goals of care moving forward. Recommendations/Counseling Done: 1. Pain of neoplastic origin. Patient currently on time release morphine 15 mg 3 times daily, does have hydrocodone 2 tabs every 4 hours as needed for break through pain. Counseling provided to patient regarding need for escalating pain medication, patient's goal is to medicate to comfort, so we can know his total dose needed for managing his pain. Unfortunately patient is currently on immunotherapy which Decadron is contraindicated, this may actually be of benefit for bony metastases. Would continue to evaluate, most likely will need titration upward. 2. Constipation, opioid induced. 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 2. Metastatic lung cancer stage IV. Did put a call out to oncologist Dr. PEG GAITAN, He does feel having information regarding prognosis would be of help moving forward and then decision-making. Patient also at high risk for side effects from immunotherapy, will explore if this may be 1 of the adverse effects both lung toxicity includes pneumonitis as well as cardiac toxicities.Also given multiple stressors, will follow up regarding transitioning care to [facility] oncology clinic. 3. Advanced care planning. Patient and have not had opportunity to even consider or explore issues relating future planning. Did introduce conversation regarding CODE STATUS, setting goals of care, wishes for end-of-life as well as priorities and concerns. Provided 5 wishes, values and believe statement, as well as the conversation project to help further facilitate conversation. Visit was focused on establishing rapport, eliciting patient's understanding of illness, as well as goals for the future. Time Spent: 80 minutes with greater than 50% of this done in counseling regarding anticipatory guidance, goals of care, education regarding symptom management as well is establishing rapport.
[2018-09-29] MEDS: AZITHROMYCIN INJ 500 MG in SODIUM CHLORIDE 0.9% 250 ML IV SCH (14:44)
[2018-09-29] MEDS: SACCHAROMYCES BOULARDII 250 MG CAPSULE PO SCH (16:03)
[2018-09-29] MEDS: HYDROmorphone 1 MG/ML CARPUJECT IVP PRN ×2 (16:04→23:48)
[2018-09-29] MEDS: methylPREDNISolone SUCCINATE 40 MG/ML VIAL IVP SCH ×2 (18:44→21:44)
[2018-09-30] MEDS: HYDROcod/ACETAM 5/325 MG TABLET PO PRN ×2 (00:09→17:55)
[2018-09-30] MEDS: AMPICILLIN/SULBACTAM 1.5 GM in SODIUM CHLORIDE 0.9% MINIBAG 100 ML IV SCH ×4 (01:00→17:47)
[2018-09-30] MEDS: SODIUM CHLORIDE FLUSH 0.9% 10 ML SYRINGE IVP PRN ×5 (01:00→20:03)
[2018-09-30] MEDS: HYDROmorphone 1 MG/ML CARPUJECT IVP PRN ×2 (01:00→06:20)
[2018-09-30 06:13] LABS: HGB - HEMOGLOBIN 12.1 g/dL (14.0-18.0); MEAN CORPUSCULAR HEMOGLOBIN 29.8 pg (27.0-31.0); MEAN CORPUSCULAR HGB CONC 32.5 g/dL (32.0-36.0); MEAN CORPUSCULAR VOLUME 91.8 fL (80.0-94.0); MEAN PLATELET VOLUME 8.1 fL (7.4-11.4); RED BLOOD COUNT 4.06 10^6/uL (4.70-6.10); RED CELL DISTRIBUTION WIDTH 15.3 % (12.0-15.0); WHITE BLOOD COUNT 8.8 x10^3/uL (4.8-10.8)
[2018-09-30] MEDS: MORPHINE ER 15 MG TABLET PO SCH ×3 (06:21→21:41)
[2018-09-30 06:30] LABS: CALCIUM 8.1 mg/dL (8.5-10.3); CREATININE 1.1 mg/dL (0.6-1.2)
[2018-09-30] MEDS: methylPREDNISolone SUCCINATE 40 MG/ML VIAL IVP SCH (06:32)
[2018-09-30] MEDS: POLYETHYLENE GLYCOL 3350 17 GM PACKET PO SCH (08:26)
[2018-09-30] MEDS: LORATADINE 10 MG TABLET PO SCH (08:26)
[2018-09-30] MEDS: FLUCONAZOLE 100 MG TABLET PO SCH (08:26)
[2018-09-30] MEDS: FAMOTIDINE 20 MG TABLET PO SCH ×2 (08:26→20:03)
[2018-09-30] MEDS: ASPIRIN EC 81 MG TABLET PO SCH (08:26)
[2018-09-30] MEDS: ATORVASTATIN 40 MG TABLET PO SCH (08:27)
[2018-09-30] MEDS: SACCHAROMYCES BOULARDII 250 MG CAPSULE PO SCH ×2 (08:27→16:44)
[2018-09-30] MEDS: METOPROLOL SUCCINATE 25 MG TABLET PO SCH (08:27)
[2018-09-30] MEDS: AZITHROMYCIN INJ 500 MG in SODIUM CHLORIDE 0.9% 250 ML IV SCH (08:30)
[2018-09-30] MEDS: SODIUM CHLORIDE FLUSH 0.9% 10 ML SYRINGE IVP SCH ×3 (08:31→17:56)
[2018-09-30] MEDS: FUROSEMIDE 40 MG/4 ML VIAL IVP SCH (08:36)
[2018-09-30] MEDS ORDERED: METOPROLOL SUCCINATE 50 MG TABLET PO ONE (08:37)
[2018-09-30] MEDS: INSULIN ASPART 300 UNIT/3 ML PEN SUBQ SCH ×4 (08:44→20:40)
--- NOTE | 2018-09-30 08:44 | PROVIDER PROGRESS NOTE ---
Subjective - Prog Note Date Prog Note Date: 09/30/18 Prog Note Time: 08:44 - Subjective Pt reports feeling: No change Subjective: Chintan is a little more confused today and his states that he has been more "grumpy" with her that reminds her of when he used to drink alcohol years ago. He denies chest pain, nausea, vomiting, diarrhea, a new rash or a productive cough. He believes that his overall condition has improved. Current Medications - Current Medications Current Medications: Active Medications Acetaminophen (Tylenol) 650 mg PO Q4HR PRN PRN Reason: Pain 1 to 4 Hydrocodone Bitart/Acetaminophen ([place] 5/325) 2 tab PO Q4H PRN PRN Reason: PAIN Last Admin: 09/30/18 00:09 Dose: 2 tab Aspirin (Ecotrin) 81 mg PO DAILY [facility] Last Admin: 09/30/18 08:26 Dose: 81 mg Atorvastatin Calcium (Lipitor) 40 mg PO DAILY [facility] Last Admin: 09/30/18 08:27 Dose: 40 mg Digoxin (Lanoxin Inj) 250 mcg IVP DAILY [facility] Famotidine (Pepcid) 20 mg PO BID [facility] Last Admin: 09/30/18 08:26 Dose: 20 mg Fluconazole (Diflucan) 100 mg PO DAILY [facility] Last Admin: 09/30/18 08:26 Dose: 100 mg Furosemide (Lasix Inj 40 Mg Vial) 40 mg IVP BID [facility] Last Admin: 09/30/18 08:36 Dose: 40 mg Heparin Sodium (Beef Lung) () 30 - 50 unit IVP PRN PRN PRN Reason: Port Protocol (<24 hours) Last Admin: 09/29/18 09:16 Dose: 50 unit Hydromorphone HCl (Dilaudid Inj Carp) 1 mg IVP Q2HR PRN PRN Reason: PAIN Last Admin: 09/30/18 06:20 Dose: 1 mg Ampicillin Sodium/Sulbactam (Sodium 1.5 gm/ Sodium Chloride) 100 mls @ 200 mls/hr IV Q6HR [facility] Last Infusion: 09/30/18 07:20 Dose: Infused Azithromycin 500 mg/ Sodium (Chloride) 250 mls @ 250 mls/hr IV DAILY [facility] Last Admin: 09/30/18 08:30 Dose: 250 mls/hr Insulin Aspart (Novolog) 1 - 9 unit SUBQ 0800,1200,1700,2100 [facility]; Protocol Last Admin: 09/29/18 21:28 Dose: Not Given Ketoconazole (Nizoral 2% Cream) 1 applic TOP BID [facility] Last Admin: 09/29/18 21:30 Dose: 1 applic Levalbuterol HCl (Xopenex) 1.25 mg INH Q2HR PRN PRN Reason: Wheezing Last Admin: 09/28/18 20:12 Dose: 1.25 mg Lidocaine HCl (Xylocaine Uro-Jet 2%) 2.5 ml UR Q6H PRN PRN Reason: PAIN Last Admin: 09/28/18 13:22 Dose: 2.5 ml Loratadine (Claritin) 10 mg PO DAILY [facility] Last Admin: 09/30/18 08:26 Dose: 10 mg Methylprednisolone (Solu-Medrol (40mg Vial)) 40 mg IVP TID [facility] Last Admin: 09/30/18 06:32 Dose: 40 mg Metoprolol Succinate (Toprol Xl) 50 mg PO BIDWM [facility] Metoprolol Tartrate (Lopressor Inj) 5 mg IVP Q4HR PRN PRN Reason: Tachycardia Morphine Sulfate (Morphine (Carpuject)) 2 mg IVP Q4HR PRN PRN Reason: Pain 8 to 10 Morphine Sulfate () 15 mg PO Q8H [facility] Last Admin: 09/30/18 06:21 Dose: 15 mg Nystatin (Nystop) 1 applic TOP BID [facility] Last Admin: 09/29/18 21:31 Dose: 1 applic Ondansetron HCl (Zofran Inj) 4 mg IVP Q6HR PRN PRN Reason: Nausea / Vomiting Polyethylene Glycol (Miralax) 17 gm PO DAILY [facility] Last Admin: 09/30/18 08:26 Dose: 17 gm Prochlorperazine Edisylate (Compazine Inj) 10 mg IVP Q6HR PRN PRN Reason: Nausea / Vomiting Saccharomyces Boulardii (Florastor) 500 mg PO BIDWM [facility] Last Admin: 09/30/18 08:27 Dose: 500 mg Sodium Chloride (Normal Saline Flush 0.9%) 10 ml IVP PRN PRN PRN Reason: NEEDED PER PROVIDER ORDERS Last Admin: 09/30/18 06:33 Dose: 10 ml Sodium Chloride (Normal Saline Flush 0.9%) 10 ml IVP 0100,0900,1700 JR Last Admin: 09/30/18 08:31 Dose: 10 ml Sodium Chloride (Normal Saline Flush 0.9%) 20 ml IVP PRN PRN PRN Reason: After Blood Draw Last Admin: 09/30/18 01:00 Dose: 20 ml Warfarin Sodium (Coumadin) 3 mg PO 1500 JR Zolpidem Tartrate (Ambien) 5 mg PO QPM PRN PRN Reason: Insomnia Atorvastatin Calcium 40 mg PO DAILY 10/14/16 Doxazosin Mesylate 8 mg PO DAILY 10/14/16 Lisinopril 40 mg PO DAILY 10/14/16 amLODIPine [Norvasc] 10 mg PO DAILY 10/14/16 metFORMIN [Glucophage] 500 mg PO BID 10/14/16 Acetaminophen [Extra Strength Non-Aspirin] 500 mg PO BID 09/28/18 Cholecalciferol (Vitamin D3) [Vitamin D3] 2,000 unit PO DAILY 09/28/18 HYDROcod/ACETAM 5/325 [[place] 5/325] 1 - 2 tab PO Q4H PRN 09/28/18 Loratadine [Allergy] 10 mg PO DAILY 09/28/18 Morphine Sulfate [Morphine Sulfate ER] 15 mg PO Q8H 09/28/18 Warfarin Sodium 5 mg PO DAILY 09/28/18 Objective - Vital Signs/Intake & Output Reviewed Vital Signs: Yes Vital Signs: Vital Signs x48h Temp Pulse Resp BP Pulse Ox 09/30/18 07:55 36.8 C 138 H 18 116/64 92 09/30/18 05:00 36.3 C L 130 H 20 129/81 H 95 Intake & Output: Intake & Output 09/27/18 09/28/18 09/29/18 09/30/18 23:59 23:59 23:59 23:59 Intake Total 110 1190 1290 650 Output Total 50 4715 4295 0430 Balance 60 -7855 -1385 -3100 - Objective General Appearance: positive: Alert, Mild distress Eyes Bilateral: positive: PERRL Eyes: OU Conjunctivae pale ENT: positive: Pharynx nml, No signs of dehydration Neck: positive: Thyroid nml, No JVD Respiratory: positive: Chest non-tender, No respiratory distress, Rhonchi - Lab Results Fish Bones: 09/30/18 05:45 09/30/18 05:45 Other Labs: Lab Results x24hrs 09/30/18 09/30/18 09/30/18 Range/Units 05:45 05:45 05:45 WBC 8.8 (4.8-10.8) x10^3/uL RBC 4.06 L (4.70-6.10) 10^6/uL Hgb 12.1 L (14.0-18.0) g/dL Hct 37.3 L (42.0-52.0) % MCV 91.8 (80.0-94.0) fL MCH 29.8 (27.0-31.0) pg MCHC 32.5 (32.0-36.0) g/dL RDW 15.3 H (12.0-15.0) % Plt Count 115 L (130-450) 10^3/uL MPV 8.1 (7.4-11.4) fL PT 33.0 H (9.9-12.6) secs INR 3.0 H (0.8-1.2) Sodium 134 L (135-145) mmol/L Potassium 4.1 (3.5-5.0) mmol/L Chloride 98 L (101-111) mmol/L Carbon Dioxide 26 (21-32) mmol/L Anion Gap 10.0 (6-13) BUN 41 H (6-20) mg/dL Creatinine 1.1 (0.6-1.2) mg/dL Estimated GFR (MDRD) 66 L (>89) Glucose 150 H (70-100) mg/dL Calcium 8.1 L (8.5-10.3) mg/dL ABX Reporting Has patient been on IV antibiotics over the past 48 hours?: Yes Sepsis Event Note (H) - Evaluation Current Stage of Sepsis: Ruled out Possible source of Sepsis: positive: Pulmonary - Sepsis Criteria Sepsis Criteria: Recorded Heart Rate greater than 90 bpm, WBC count greater than 12,000 or less than 4000 Assessment/Plan - Problem List (1) Right heart failure, NYHA class 3 Impression: Echo results from 09/28/18 show an EF of 60%, pulmonary HTN with an RVSP of 64 mmHg, and a small pericardial effusion. He has known MAGDALENO and now stage 4 lung cancer since March of 2018. He states that over the past week, his leg edema and abdominal girth has increased. He has been so debilitated due to his profound leg edema, only taking shuffling steps. He is being titrated down on Lasix IV at 20mg BID and remains with an indwelling zafar for accurate I/Os. Plan: Continue metoprolol, lasix IV with plans to transition to oral tomorrow, maintain zafar for accurate I/Os, daily weights, vital signs. (2) Tachycardia Impression: The patient continues to have heart rates ~110-140's, which is the most likely cause of his AMS today. Yesterday he was started on a loading dose of IV digoxin, and today I have continued this to be used daily. I have doubled his metoprolol dose from 25 BID to 50 BID. At lunch time, his heart rates are much improved in the 80-90's. Plan: Continue to titrate metoprolol dose and anticipate discontinuing the digoxin for home use. (3) Confusion Impression: The patient is not reliable in his orientation questions today and says many things out of context as compared to yesterday. His , Haylee is concerned, but I spoke with her noting that it is likely a side effect of poor brain perfusion as his heart rates have been too high for the past few days. She states that in the past steroid use would cause confusion, so I will titrate these down in hopes for improvement. Plan: Continue to monitor and reduce steroids today. (4) Chronic atrial fibrillation Impression: The patient is anticoagulated with warfarin which was approved by his oncology team. Today his INR is at 3.3 and he remains on Warfarin at 3mg that was adjusted down due to the antibiotic load that may increased the effect of coumadin. Plan: Continue rate control with daily digoxin after loading doses, metoprolol, telemetry, Daily INRs and watch for signs of bleeding. (5) Pericardial effusion Impression: An echocardiogram was completed which shows a small pericardial effusion that is new since his last echo, BUT not new since his last oncology exam. Plan: continue moderate dose steroids, and use rate control medication to ease the work load. (6) Pneumonia Impression: The patient had evidence of infiltrates on initial chest x-ray, and with him remaining tachycardic, ongoing fatigue, increased oxygen needs and an elevated WBC count, he has been continued on IV ampicillin-sulbactam and azithromycin to treat bilateral pneumonia. Plan: Respiratory care, IV antibiotics, a probiotic, IV steroids, daily labs, and monitor for improvement. (7) Cor pulmonale Impression: Echo results show an RVSP at rest of 64 mmHg that is increased from 51 mmHg in July, in addition, he has RV enlargement. He has known MAGDALENO, which he states that he is compliant with, and now stage 4 lung cancer since March of 2018. He states that over the past week, his leg edema and abdominal girth has increased. He has been treated with high dose lasix since admission. Plan: Start daily spironolactone in the AM. Continue home CPAP at night with 3L bleed in. Respiratory care with nebs. (8) Type 2 diabetes mellitus Impression: The patient has a good HgA1C of 6.1%, and is prescribed Metformin. He and his state that he has been diabetic for the past ~5 years. He unfortunately has had anorexia at home for the past week and has been steadily loosing weight since his diagnosis of stage 4 lung CA in March 2018. His early AM sugar was 150 today, but we will continue to hold off on Lantus, which would be added to replace his home Metformin. Plan: Continue SSI and sugar checks. Regular diet for now, but plan on changing to carb controlled since his appetite has improved. 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 The patient will likely have increased needs physically and future plans with oncology, and course of treatment goals can be made. The patient states that he does not know the actual prognosis of this disease and continues with out patient treatment and there may be rehab potential after this hospital stay. Plan: Continue supportive care, Palliative care to follow and PT evaluation prior to D/C to determine home needs. (10) MAGDALENO on CPAP Impression: The patient states that he has been on CPAP for at least the past 25 years, and states that he never sleeps without it. It is in his room on exam today. Plan: Ensure home CPAP orders are on the chart, continue use at HS for sleeping. Bleed in O2 @ 3L. (11) Oxygen dependent Impression: The patient has recently been prescribed home oxygen as per PCP and remains at 3L nasal cannula. He complains of a dry mouth, without evidence of thrush, which is improved today. He did state that the oxygen may be more irritating today, so I have added saline spray, PRN. Plan: Continue respiratory care, nebs, oxygen and nightly CPAP. 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 He continues with an indwelling zafar in light of this acute CHF and the amount of diuresis that will be needed, and changed his med to Flomax. Plan: Continue zafar, continue Flomax, accurate I/Os.
[2018-09-30] MEDS: KETOCONAZOLE 2% CREAM 15 GM TUBE TOP SCH ×2 (08:46→20:04)
[2018-09-30] MEDS: NYSTATIN POWDER 15 GM TOP SCH ×2 (08:47→20:04)
[2018-09-30] MEDS: DIGOXIN 500 MCG/2 ML AMP IVP SCH (08:58)
[2018-09-30] MEDS ORDERED: METOPROLOL SUCCINATE 50 MG TABLET PO SCH (09:00)
--- NOTE | 2018-09-30 12:17 | CONSULTATION NOTE ---
Palliative Care Follow Up - Referral Referring Provider: Na WHITLEY Time of Visit: 2638-1525 Referral setting: Hospitalized patient Referral Reason: metastatic lung cancer/goals of care - Information Sources Records reviewed: RN notes reviewed, Previous records reviewed History/Review of Systems obtained from: Patient, Family ( Haylee at visit) Exam limitations: Clinical condition (patient presents with increased confusion today) - History of Present Illness Update Brief HPI Update: This is a 73-year-old gentleman who recently was diagnosed with metastatic lung cancer to nodes, left adrenal nodule thought to be metastatic disease as well as T5 and sacral uptake for bony metastases. He is here it would be health as result of an acute shortness of breath, functional decline, increased lower ext remity edema and CHF. He is continued with atrial fib with rapid ventricular response and quite tacky, he also presents with increasing confusion and disorientation today. Patient reports his pain is currently controlled, though he is doing a lot of shifting had difficulty sitting still. Reports things are "making progress". He denies dizziness, but is disoriented to place, time, and difficulty tracking conversation. His is quite tearful as he is argumentative and irritable, and is not easily reoriented. Patient is able to carry on conversation though does not present with understanding or insight. Social History - Living Situation Living arrangement: At home Living Situation: With spouse/s.o. Support System: They have 1 son Solomon who does live in [place], he will be coming to provide assistance on Thursday and see them, he has been somewhat emotional to per Haylee's report. Medications/Allergies - Medications Active Medication List: Active Medications Acetaminophen (Tylenol) 650 mg PO Q4HR PRN PRN Reason: Pain 1 to 4 Hydrocodone Bitart/Acetaminophen ([facility] 5/325) 2 tab PO Q4H PRN PRN Reason: PAIN Last Admin: 09/30/18 00:09 Dose: 2 tab Aspirin (Ecotrin) 81 mg PO DAILY [facility] Last Admin: 09/30/18 08:26 Dose: 81 mg Atorvastatin Calcium (Lipitor) 40 mg PO DAILY [facility] Last Admin: 09/30/18 08:27 Dose: 40 mg Digoxin (Lanoxin Inj) 250 mcg IVP DAILY [facility] Last Admin: 09/30/18 08:58 Dose: 250 mcg Famotidine (Pepcid) 20 mg PO BID [facility] Last Admin: 09/30/18 08:26 Dose: 20 mg Fluconazole (Diflucan) 100 mg PO DAILY [facility] Last Admin: 09/30/18 08:26 Dose: 100 mg Furosemide (Lasix Inj 40 Mg Vial) 40 mg IVP BID [facility] Last Admin: 09/30/18 08:36 Dose: 40 mg Heparin Sodium (Beef Lung) () 30 - 50 unit IVP PRN PRN PRN Reason: Port Protocol (<24 hours) Last Admin: 09/30/18 10:15 Dose: 50 unit Hydromorphone HCl (Dilaudid Inj Carp) 1 mg IVP Q2HR PRN PRN Reason: PAIN Last Admin: 09/30/18 06:20 Dose: 1 mg Ampicillin Sodium/Sulbactam (Sodium 1.5 gm/ Sodium Chloride) 100 mls @ 200 mls/hr IV Q6HR [facility] Last Infusion: 09/30/18 07:20 Dose: Infused Azithromycin 500 mg/ Sodium (Chloride) 250 mls @ 250 mls/hr IV DAILY [facility] Last Infusion: 09/30/18 10:45 Dose: Infused Insulin Aspart (Novolog) 1 - 9 unit SUBQ 0800,1200,1700,2100 [facility]; Protocol Last Admin: 09/30/18 08:44 Dose: 1 unit Ketoconazole (Nizoral 2% Cream) 1 applic TOP BID [facility] Last Admin: 09/30/18 08:46 Dose: 1 applic Levalbuterol HCl (Xopenex) 1.25 mg INH Q2HR PRN PRN Reason: Wheezing Last Admin: 09/28/18 20:12 Dose: 1.25 mg Lidocaine HCl (Xylocaine Uro-Jet 2%) 2.5 ml UR Q6H PRN PRN Reason: PAIN Last Admin: 09/28/18 13:22 Dose: 2.5 ml Loratadine (Claritin) 10 mg PO DAILY [facility] Last Admin: 09/30/18 08:26 Dose: 10 mg Methylprednisolone (Solu-Medrol (40mg Vial)) 40 mg IVP TID [facility] Last Admin: 09/30/18 06:32 Dose: 40 mg Metoprolol Succinate (Toprol Xl) 50 mg PO BIDWM [facility] Metoprolol Tartrate (Lopressor Inj) 5 mg IVP Q4HR PRN PRN Reason: Tachycardia Morphine Sulfate (Morphine (Carpuject)) 2 mg IVP Q4HR PRN PRN Reason: Pain 8 to 10 Morphine Sulfate () 15 mg PO Q8H [facility] Last Admin: 09/30/18 06:21 Dose: 15 mg Nystatin (Nystop) 1 applic TOP BID [facility] Last Admin: 09/30/18 08:47 Dose: 1 applic Ondansetron HCl (Zofran Inj) 4 mg IVP Q6HR PRN PRN Reason: Nausea / Vomiting Polyethylene Glycol (Miralax) 17 gm PO DAILY [facility] Last Admin: 09/30/18 08:26 Dose: 17 gm Prochlorperazine Edisylate (Compazine Inj) 10 mg IVP Q6HR PRN PRN Reason: Nausea / Vomiting Saccharomyces Boulardii (Florastor) 500 mg PO BIDWM [facility] Last Admin: 09/30/18 08:27 Dose: 500 mg Sodium Chloride (Normal Saline Flush 0.9%) 10 ml IVP PRN PRN PRN Reason: NEEDED PER PROVIDER ORDERS Last Admin: 09/30/18 06:33 Dose: 10 ml Sodium Chloride (Normal Saline Flush 0.9%) 10 ml IVP 0100,0900,1700 [facility] Last Admin: 09/30/18 10:09 Dose: 10 ml Sodium Chloride (Normal Saline Flush 0.9%) 20 ml IVP PRN PRN PRN Reason: After Blood Draw Last Admin: 09/30/18 01:00 Dose: 20 ml Warfarin Sodium (Coumadin) 2 mg PO 1400 [facility] Zolpidem Tartrate (Ambien) 5 mg PO QPM PRN PRN Reason: Insomnia Atorvastatin Calcium 40 mg PO DAILY 10/14/16 Doxazosin Mesylate 8 mg PO DAILY 10/14/16 Lisinopril 40 mg PO DAILY 10/14/16 amLODIPine [Norvasc] 10 mg PO DAILY 10/14/16 metFORMIN [Glucophage] 500 mg PO BID 10/14/16 Acetaminophen [Extra Strength Non-Aspirin] 500 mg PO BID 09/28/18 Cholecalciferol (Vitamin D3) [Vitamin D3] 2,000 unit PO DAILY 09/28/18 HYDROcod/ACETAM 5/325 [[facility] 5/325] 1 - 2 tab PO Q4H PRN 09/28/18 Loratadine [Allergy] 10 mg PO DAILY 09/28/18 Morphine Sulfate [Morphine Sulfate ER] 15 mg PO Q8H 09/28/18 Warfarin Sodium 5 mg PO DAILY 09/28/18 - Allergies Allergies/Adverse Reactions: Allergies Allergy/AdvReac Type Severity Reaction Status Date / Time No Known Drug Allergies Allergy Verified 09/27/18 19:28 Review of Systems - Constitutional Constitutional: reports: Fatigue, Poor appetite. denies: Fever, Chills - Cardiovascular Cardiovascular: reports: Exertional dyspnea, Decr. exercise tolerance - Respiratory Respiratory: reports: SOB with exertion. denies: SOB at rest - Gastrointestinal Gastrointestinal: reports: Constipation (patient reports had one yesterday; not charted; history of constipation), Other (taste changes; reports ate better this am). denies: Nausea - Genitourinary Genitourinary: reports: Other (zafar catheter, keeps playing with it; confused as to what it is today; urine clear yellow) - Musculoskeletal Musculoskeletal: reports: Back pain, Stiffness, Muscle weakness, Assistive devices (up in chair; using walker; new from baseline) - Integumentary Integumentary: reports: Rash (improving), Dryness - Neurological Neurological: reports: General weakness, Memory problems. denies: Dizziness - Psychiatric Psychiatric: reports: Hallucinations - Endocrine Endocrine: reports: Diabetes type 2 - Hematologic/Lymphatic Hematologic/Lymphatic: reports: Recurrent infections (being treated for) - All Other Systems All Other Systems: reports: Reviewed and negative Physical Exam - Vital Signs Vital Signs: Vital Signs x48h Temp Pulse Pulse Resp BP Pulse Ox 09/30/18 08:58 130 H 09/30/18 07:55 36.8 C 138 H 18 116/64 92 09/30/18 05:00 36.3 C L 130 H 20 129/81 H 95 - Physical Exam General Appearance: positive: Mild distress Eyes Bilateral: positive: Normal inspection Cardiovascular: positive: Tachycardia Respiratory: positive: Diminished throughout. negative: Wheezes, Rales, Rhonchi Abdomen: positive: Distended Skin: positive: Pallor, Dryness Extremities: positive: Pedal edema (1-2+ improved) Neurologic/Psychiatric: positive: Disoriented to place, Disoriented to time, Weakness, Other (presenting as confused; difficulty tracking conversation; no i nsight to confusion) Palliative Care - POLST Patient has POLST: No Pain: Pain unchanged, Location (patient difficulty talking about pain; not better or worse) Tiredness/Fatigue: Moderate (4-6) Drowsiness/Sedation: Mild (1-3) Nausea: None Constipation: Yes, Opoid induced, Unmanaged Feelings of wellbeing/Perceived Quality of Life: Fair, Worsening Performance Status: Patient has had significant decline over the last couple weeks and functional status, now able to walk only with a walker. This has much to do with activity intolerance. Had been independent though having to pace self 2 weeks ago. - Palliative Care Discussion: Goal had been today to discuss advanced directives, and to find some goals of care. I had spoken to oncologist Dr. PEG ALBRIGHT, in following up on information needed for prognosis. Patient does have PD L1 markers, that match nicely with the immunotherapy he is on. Immunotherapy is a fairly newer treatment, and more difficult to define as far as prognostication, if patient is responsive can be up to years, have patient is nonresponsive given his tumor burden certainly could be months. Unfortunately unable to evaluate response for several months, as need to wait for immune response to occur. Patient's disease can actually look worse on scans if done too close to initial treatment. Had discussed with oncologist concerns regarding side effects of Keytruda, patient currently on both therapeutic dosing of steroids and was antibiotics for pneumonia. Patient's cardiac status is currently compromised, suspect between steroids and poor perfusion patient's delirium has worsened. Did share with , patient's present though unable to participate or comprehend, my conversation with Dr. Fuentes, she was grateful to have the information. She is quite tearful regarding patient's current status, psychosocial support provided. Results - Lab Results Lab results reviewed: Yes Fish Bones: 09/30/18 05:45 09/30/18 05:45 Lab and Imaging Results: Lab Results x24hrs 09/30/18 09/30/18 09/30/18 Range/Units 05:45 05:45 05:45 WBC 8.8 (4.8-10.8) x10^3/uL RBC 4.06 L (4.70-6.10) 10^6/uL Hgb 12.1 L (14.0-18.0) g/dL Hct 37.3 L (42.0-52.0) % MCV 91.8 (80.0-94.0) fL MCH 29.8 (27.0-31.0) pg MCHC 32.5 (32.0-36.0) g/dL RDW 15.3 H (12.0-15.0) % Plt Count 115 L (130-450) 10^3/uL MPV 8.1 (7.4-11.4) fL PT 33.0 H (9.9-12.6) secs INR 3.0 H (0.8-1.2) Sodium 134 L (135-145) mmol/L Potassium 4.1 (3.5-5.0) mmol/L Chloride 98 L (101-111) mmol/L Carbon Dioxide 26 (21-32) mmol/L Anion Gap 10.0 (6-13) BUN 41 H (6-20) mg/dL Creatinine 1.1 (0.6-1.2) mg/dL Estimated GFR (MDRD) 66 L (>89) Glucose 150 H (70-100) mg/dL Calcium 8.1 L (8.5-10.3) mg/dL Impression and Recommendations - Palliative Care Impression: This is a 73-year-old gentleman who presents acutely with CHF, atrial fib with rapid ventricular response, now with progressive confusion. He does have stage IV lung cancer known adenocarcinoma of the right upper lobe, with metastatic disease to bone, nodes, and adrenals. Palliative care to provide support regarding establishing goals of care, and rapport. Patient does not present with decision-making capacity at this point in time, did not proceed with definitive counseling. Recommendations/Counseling Done: 1. Pain of neoplastic origin. Patient currently on 15 mg 3 times daily of extended release morphine, has not used very much breakthrough pain medication, denies any acute pain or discomfort. Patient unable to express further pain regimen currently working, had had conversation yesterday may need to have titrated up, given patient's pain behaviors and difficulty sitting. We will continue to evaluate. Does have breakthrough both oral and IV location available. 2. Constipation, opioid induced. Patient has received MiraLAX, as best I can see the patient still has not had a bowel movement, would recommend starting senna 2 tabs 2-3 times a day until patient's bowels have moved. 3. Metastatic lung cancer. Did follow with Dr. PEG GAITAN regarding information regarding prognosis, does share that can differentiate pneumonitis with a CT scan, but currently getting appropriate treatment. Cardiac side effects and/or myocarditis, are a diagnosis of exclusion. Did discuss in the context of being able to provide anticipatory guidance it is early in his treatment plan, but given his tumor makeup has a good chance of response. This will be unknown for several months yet. This was shared with as well as patient though unable to really process information. 4. Advanced care planning. Patient and had attempted to do their "homework" this morning, patient's irritability and confusion was very distressing to . Patient unable to present with decision making capacity currently. Patient easily agitated at this point, continue to work on building rapport, evaluate patient's level of confusion, and providing support and guidance to . 5. Delirium. This is multifactorial in origin. Patient is poorly perfusing with tachycardia, has recently put on steroids, does not do well be challenged, used distraction and redirection to manage behaviros Time Spent: 40 minutes with getting 50% of this done with counseling regarding diagnosis, goals of care, and anticipatory guidance.
[2018-09-30] MEDS ORDERED: SODIUM CHLORIDE 0.65% NASAL SPRAY NAS PRN (12:21)
[2018-09-30] MEDS: TAMSULOSIN 0.4 MG CAPSULE PO SCH (13:46)
[2018-09-30] MEDS ORDERED: WARFARIN 1 MG TABLET PO SCH (14:00)
[2018-09-30] MEDS ORDERED: METOPROLOL SUCCINATE 25 MG TABLET PO SCH (17:00)
[2018-09-30] MEDS ORDERED: FUROSEMIDE 40 MG/4 ML VIAL IVP SCH (21:00)
[2018-10-01] MEDS: AMPICILLIN/SULBACTAM 1.5 GM in SODIUM CHLORIDE 0.9% MINIBAG 100 ML IV SCH (00:03)
[2018-10-01] MEDS: SODIUM CHLORIDE FLUSH 0.9% 10 ML SYRINGE IVP SCH ×3 (00:03→18:06)
[2018-10-01 04:53] LABS: BASOPHILS % (AUTO) 0.1 %; HGB - HEMOGLOBIN 11.3 g/dL (14.0-18.0); LYMPHOCYTES # (AUTO) 0.6 10^3/uL (1.5-3.5); LYMPHOCYTES % (AUTO) 4.9 %; MEAN CORPUSCULAR HEMOGLOBIN 29.2 pg (27.0-31.0); MEAN CORPUSCULAR HGB CONC 32.1 g/dL (32.0-36.0); MEAN CORPUSCULAR VOLUME 91.1 fL (80.0-94.0); MONOCYTES # (AUTO) 0.8 10^3/uL (0.0-1.0); MONOCYTES % (AUTO) 6.8 %; NEUTROPHILS # (AUTO) 10.3 10^3/uL (1.5-6.6); NEUTROPHILS % (AUTO) 88.2 %; PLT - PLATELET COUNT 145 10^3/uL (130-450); RED BLOOD COUNT 3.87 10^6/uL (4.70-6.10); RED CELL DISTRIBUTION WIDTH 15.4 % (12.0-15.0); WHITE BLOOD COUNT 11.7 x10^3/uL (4.8-10.8)
[2018-10-01 05:02] LABS: INR 3.6 (0.8-1.2); PT - PROTHROMBIN TIME 40.3 secs (9.9-12.6)
[2018-10-01 05:03] LABS: ALBUMIN 2.9 g/dL (3.2-5.5); ALBUMIN/GLOBULIN RATIO 0.8 (1.0-2.2); BILIRUBIN,TOTAL 0.9 mg/dL (0.2-1.0); CALCIUM 8.1 mg/dL (8.5-10.3); CREATININE 1.1 mg/dL (0.6-1.2); MAGNESIUM 2.3 mg/dL (1.7-2.8); PHOSPHORUS 3.4 mg/dL (2.5-4.6); TOTAL PROTEIN 6.5 g/dL (6.7-8.2)
[2018-10-01] MEDS: MORPHINE ER 15 MG TABLET PO SCH ×3 (06:47→22:51)
[2018-10-01] MEDS ORDERED: IOVERSOL 320 100 ML VIAL IVP ONE ×3 (08:19→17:12)
[2018-10-01] MEDS ORDERED: methylPREDNISolone SUCCINATE 40 MG/ML VIAL IVP SCH (09:00)
[2018-10-01] MEDS: METOPROLOL SUCCINATE 50 MG TABLET PO SCH ×2 (09:24→21:38)
[2018-10-01] MEDS: FUROSEMIDE 40 MG TABLET PO SCH ×2 (09:24→14:33)
[2018-10-01] MEDS: LORATADINE 10 MG TABLET PO SCH (09:24)
[2018-10-01] MEDS: AZITHROMYCIN 250 MG TABLET PO SCH (09:24)
[2018-10-01] MEDS: SACCHAROMYCES BOULARDII 250 MG CAPSULE PO SCH ×2 (09:24→18:06)
[2018-10-01] MEDS: ASPIRIN EC 81 MG TABLET PO SCH (09:24)
[2018-10-01] MEDS: INSULIN ASPART 300 UNIT/3 ML PEN SUBQ SCH ×4 (09:25→21:38)
[2018-10-01] MEDS: predniSONE 20 MG TABLET PO SCH (09:25)
[2018-10-01] MEDS: TAMSULOSIN 0.4 MG CAPSULE PO SCH (09:25)
[2018-10-01] MEDS: AMOX/CLAV 875 MG/125 MG TABLET PO SCH ×2 (09:25→21:38)
[2018-10-01] MEDS: FAMOTIDINE 20 MG TABLET PO SCH ×2 (09:25→21:38)
[2018-10-01] MEDS: ATORVASTATIN 40 MG TABLET PO SCH (09:25)
[2018-10-01] MEDS: SPIRONOLACTONE 25 MG TABLET PO SCH (09:25)
[2018-10-01] MEDS: DIGOXIN 500 MCG/2 ML AMP IVP SCH (09:54)
[2018-10-01] MEDS: POLYETHYLENE GLYCOL 3350 17 GM PACKET PO SCH (10:02)
[2018-10-01] MEDS: KETOCONAZOLE 2% CREAM 15 GM TUBE TOP SCH ×2 (11:35→21:38)
[2018-10-01] MEDS: NYSTATIN POWDER 15 GM TOP SCH ×2 (11:35→21:38)
[2018-10-01] MEDS: HYDROmorphone 1 MG/ML CARPUJECT IVP PRN (11:36)
[2018-10-01] MEDS: SODIUM CHLORIDE FLUSH 0.9% 10 ML SYRINGE IVP PRN (11:36)
--- NOTE | 2018-10-01 12:55 | CT Report ---
Reason: evaluate for brain mets Procedure Date: 10/01/2018 Accession Number: [id number] / [id number] Procedure: CT - Head W/ CPT Code: FULL RESULT: EXAM: CT HEAD EXAM DATE: 10/01/2018 11:03 AM. CLINICAL HISTORY: Evaluate for brain mets. COMPARISON: None. TECHNIQUE: Multiaxial CT images were obtained from the foramen magnum to the vertex. Reformats: Sagittal and coronal. IV contrast: 80 mL Optiray 320. In accordance with CT protocol optimization, one or more of the following dose reduction techniques were utilized for this exam: automated exposure control, adjustment of mA and/or KV based on patient size, or use of iterative reconstructive technique. FINDINGS: Parenchyma: No intraparenchymal hemorrhage. No evidence of mass, midline shift, or CT findings of infarction. Giles-white differentiation is distinct. Extraaxial Spaces: Normal for age. No subdural or epidural collections identified. Ventricles: Normal in size and position. Sinuses and Orbits: Imaged paranasal sinuses, orbits, and mastoids show no significant abnormality. Bones: No evidence of fracture or calvarial defect. Other: None. IMPRESSION: No evidence of enhancing brain lesion by CT. Please note that MRI with and without contrast of the brain has greater sensitivity. [facility]
--- NOTE | 2018-10-01 13:23 | PROVIDER PROGRESS NOTE ---
Subjective - Prog Note Date Prog Note Date: 10/01/18 Prog Note Time: 13:23 - Subjective Pt reports feeling: Improved Subjective: Chintan has no complaints and is quite happy to have his zafar out. He denies chest pain, nausea, vomiting, a new rash, an increased cough or increased shortness of breath. Current Medications - Current Medications Current Medications: Active Medications Acetaminophen (Tylenol) 650 mg PO Q4HR PRN PRN Reason: Pain 1 to 4 Hydrocodone Bitart/Acetaminophen (Madison 5/325) 2 tab PO Q4H PRN PRN Reason: PAIN Last Admin: 09/30/18 17:55 Dose: 2 tab Amoxicillin/Clavulanate Potassium (Augmentin 875/125) 1 tab PO BID [facility] Stop: 10/03/18 21:01 Last Admin: 10/01/18 09:25 Dose: 1 tab Aspirin (Ecotrin) 81 mg PO DAILY [facility] Last Admin: 10/01/18 09:24 Dose: 81 mg Atorvastatin Calcium (Lipitor) 40 mg PO DAILY [facility] Last Admin: 10/01/18 09:25 Dose: 40 mg Azithromycin (Zithromax) 250 mg PO DAILY [facility] Stop: 10/04/18 09:01 Last Admin: 10/01/18 09:24 Dose: 250 mg Digoxin (Lanoxin Inj) 250 mcg IVP DAILY [facility] Last Admin: 10/01/18 09:54 Dose: 250 mcg Famotidine (Pepcid) 20 mg PO BID [facility] Last Admin: 10/01/18 09:25 Dose: 20 mg Furosemide (Lasix) 40 mg PO BIDDIURETIC [facility] Last Admin: 10/01/18 14:33 Dose: 40 mg Heparin Sodium (Beef Lung) () 30 - 50 unit IVP PRN PRN PRN Reason: Port Protocol (<24 hours) Last Admin: 10/01/18 11:36 Dose: 30 unit Hydromorphone HCl (Dilaudid Inj Carp) 1 mg IVP Q2HR PRN PRN Reason: PAIN Last Admin: 10/01/18 11:36 Dose: 1 mg Insulin Aspart (Novolog) 1 - 9 unit SUBQ 0800,1200,1700,2100 [facility]; Protocol Last Admin: 10/01/18 11:36 Dose: Not Given Ketoconazole (Nizoral 2% Cream) 1 applic TOP BID [facility] Last Admin: 10/01/18 11:35 Dose: 1 applic Levalbuterol HCl (Xopenex) 1.25 mg INH Q2HR PRN PRN Reason: Wheezing Last Admin: 10/01/18 14:42 Dose: 1.25 mg Lidocaine HCl (Xylocaine Uro-Jet 2%) 2.5 ml UR Q6H PRN PRN Reason: PAIN Last Admin: 09/28/18 13:22 Dose: 2.5 ml Loratadine (Claritin) 10 mg PO DAILY [facility] Last Admin: 10/01/18 09:24 Dose: 10 mg Metoprolol Succinate (Toprol Xl) 100 mg PO BID [facility] Last Admin: 10/01/18 09:24 Dose: 100 mg Metoprolol Tartrate (Lopressor Inj) 5 mg IVP Q4HR PRN PRN Reason: Tachycardia Morphine Sulfate (Morphine (Carpuject)) 2 mg IVP Q4HR PRN PRN Reason: Pain 8 to 10 Morphine Sulfate () 15 mg PO Q8H [facility] Last Admin: 10/01/18 14:33 Dose: 15 mg Nystatin (Nystop) 1 applic TOP BID [facility] Last Admin: 10/01/18 11:35 Dose: 1 applic Ondansetron HCl (Zofran Inj) 4 mg IVP Q6HR PRN PRN Reason: Nausea / Vomiting Polyethylene Glycol (Miralax) 17 gm PO DAILY [facility] Last Admin: 10/01/18 10:02 Dose: Not Given Prednisone (Deltasone) 20 mg PO DAILYWM [facility] Last Admin: 10/01/18 09:25 Dose: 20 mg Prochlorperazine Edisylate (Compazine Inj) 10 mg IVP Q6HR PRN PRN Reason: Nausea / Vomiting Saccharomyces Boulardii (Florastor) 500 mg PO BIDWM [facility] Last Admin: 10/01/18 09:24 Dose: 500 mg Sodium Chloride (Normal Saline Flush 0.9%) 10 ml IVP PRN PRN PRN Reason: NEEDED PER PROVIDER ORDERS Last Admin: 10/01/18 11:36 Dose: 10 ml Sodium Chloride (Normal Saline Flush 0.9%) 10 ml IVP 0100,0900,1700 [facility] Last Admin: 10/01/18 10:03 Dose: 10 ml Sodium Chloride (Normal Saline Flush 0.9%) 20 ml IVP PRN PRN PRN Reason: After Blood Draw Last Admin: 09/30/18 20:03 Dose: 20 ml Sodium Chloride (Wisner) 2 sprays JAS Q4HR PRN PRN Reason: Nasal Congestion Last Admin: 10/01/18 10:03 Dose: 1 spr Spironolactone (Aldactone) 25 mg PO DAILY [facility] Last Admin: 10/01/18 09:25 Dose: 25 mg Tamsulosin HCl (Flomax) 0.4 mg PO DAILY [facility] Last Admin: 10/01/18 09:25 Dose: 0.4 mg Zolpidem Tartrate (Ambien) 5 mg PO QPM PRN PRN Reason: Insomnia Atorvastatin Calcium 40 mg PO DAILY 10/14/16 Doxazosin Mesylate 8 mg PO DAILY 10/14/16 Lisinopril 40 mg PO DAILY 10/14/16 amLODIPine [Norvasc] 10 mg PO DAILY 10/14/16 metFORMIN [Glucophage] 500 mg PO BID 10/14/16 Acetaminophen [Extra Strength Non-Aspirin] 500 mg PO BID 09/28/18 Cholecalciferol (Vitamin D3) [Vitamin D3] 2,000 unit PO DAILY 09/28/18 HYDROcod/ACETAM 5/325 [Madison 5/325] 1 - 2 tab PO Q4H PRN 09/28/18 Loratadine [Allergy] 10 mg PO DAILY 09/28/18 Morphine Sulfate [Morphine Sulfate ER] 15 mg PO Q8H 09/28/18 Warfarin Sodium 5 mg PO DAILY 09/28/18 Objective - Vital Signs/Intake & Output Reviewed Vital Signs: Yes Vital Signs: Vital Signs x48h Temp Pulse Pulse Resp BP Pulse Ox 10/01/18 11:38 36.4 C L 90 20 123/78 95 10/01/18 09:54 95 10/01/18 08:16 36.5 C 95 18 129/72 98 Intake & Output: Intake & Output 09/28/18 09/29/18 09/30/18 10/01/18 23:59 23:59 23:59 23:59 Intake Total 1190 1290 2330 1060 Output Total 4472 9762 3414 0210 Balance -3265 -0135 -2690 -1190 - Objective General Appearance: positive: No acute distress, Alert Eyes Bilateral: positive: PERRL Eyes: OU Conjunctivae pale ENT: positive: Pharynx nml, No signs of dehydration Neck: positive: Thyroid nml, No JVD, Trachea midline Respiratory: positive: Chest non-tender, No respiratory distress, Breath sounds nml Cardiovascular: positive: Regular rate & rhythm, No gallop, Tachycardia, Systolic murmur Peripheral Pulses: 1+ Radial (R), 1+ Radial (L) Abdomen: positive: Non-tender, Nml bowel sounds Back: positive: Nml inspection Skin: positive: No rash, Warm, Dry Extremities: positive: Non-tender, Pedal edema (BLE chronic edema-pitting +1-2), Joint swelling Neurologic/Psychiatric: positive: Oriented x3, CN's nml (2-12), Motor nml, Sensation nml, Disoriented to time, Weakness, Sensory loss, Depressed mood/affect Reflexes: Bicep (R): 3+, Bicep (L): 3+ - Lab Results Fish Bones: 10/01/18 04:25 10/01/18 04:25 Other Labs: Lab Results x24hrs 10/01/18 10/01/18 10/01/18 Range/Units 11:24 07:48 04:25 WBC (4.8-10.8) x10^3/uL RBC (4.70-6.10) 10^6/uL Hgb (14.0-18.0) g/dL Hct (42.0-52.0) % MCV (80.0-94.0) fL MCH (27.0-31.0) pg MCHC (32.0-36.0) g/dL RDW (12.0-15.0) % Plt Count (130-450) 10^3/uL MPV (7.4-11.4) fL Neut # (Auto) (1.5-6.6) 10^3/uL Lymph # (Auto) (1.5-3.5) 10^3/uL Russell # (Auto) (0.0-1.0) 10^3/uL Eos # (Auto) (0.0-0.7) 10^3/uL Baso # (Auto) (0.0-0.1) 10^3/uL Absolute Nucleated RBC x10^3/uL Nucleated RBC % /100WBC PT (9.9-12.6) secs INR (0.8-1.2) Sodium 138 (135-145) mmol/L Potassium 3.9 (3.5-5.0) mmol/L Chloride 100 L (101-111) mmol/L Carbon Dioxide 27 (21-32) mmol/L Anion Gap 11.0 (6-13) BUN 41 H (6-20) mg/dL Creatinine 1.1 (0.6-1.2) mg/dL Estimated GFR (MDRD) 66 L (>89) Glucose 157 H (70-100) mg/dL POC Whole Bld Glucose 136 H 127 H (70 - 100) mg/dL Calcium 8.1 L (8.5-10.3) mg/dL Phosphorus 3.4 (2.5-4.6) mg/dL Magnesium 2.3 (1.7-2.8) mg/dL Total Bilirubin 0.9 (0.2-1.0) mg/dL AST 23 (10-42) IU/L ALT 25 (10-60) IU/L Alkaline Phosphatase 155 H (42-121) IU/L Total Protein 6.5 L (6.7-8.2) g/dL Albumin 2.9 L (3.2-5.5) g/dL Globulin 3.6 (2.1-4.2) g/dL Albumin/Globulin Ratio 0.8 L (1.0-2.2) 10/01/18 10/01/18 09/30/18 Range/Units 04:25 04:25 20:30 WBC 11.7 H (4.8-10.8) x10^3/uL RBC 3.87 L (4.70-6.10) 10^6/uL Hgb 11.3 L (14.0-18.0) g/dL Hct 35.3 L (42.0-52.0) % MCV 91.1 (80.0-94.0) fL MCH 29.2 (27.0-31.0) pg MCHC 32.1 (32.0-36.0) g/dL RDW 15.4 H (12.0-15.0) % Plt Count 145 (130-450) 10^3/uL MPV 8.0 (7.4-11.4) fL Neut # (Auto) 10.3 H (1.5-6.6) 10^3/uL Lymph # (Auto) 0.6 L (1.5-3.5) 10^3/uL Russell # (Auto) 0.8 (0.0-1.0) 10^3/uL Eos # (Auto) 0.0 (0.0-0.7) 10^3/uL Baso # (Auto) 0.0 (0.0-0.1) 10^3/uL Absolute Nucleated RBC 0.00 x10^3/uL Nucleated RBC % 0.0 /100WBC PT 40.3 H (9.9-12.6) secs INR 3.6 H (0.8-1.2) Sodium (135-145) mmol/L Potassium (3.5-5.0) mmol/L Chloride (101-111) mmol/L Carbon Dioxide (21-32) mmol/L Anion Gap (6-13) BUN (6-20) mg/dL Creatinine (0.6-1.2) mg/dL Estimated GFR (MDRD) (>89) Glucose (70-100) mg/dL POC Whole Bld Glucose 172 H (70 - 100) mg/dL Calcium (8.5-10.3) mg/dL Phosphorus (2.5-4.6) mg/dL Magnesium (1.7-2.8) mg/dL Total Bilirubin (0.2-1.0) mg/dL AST (10-42) IU/L ALT (10-60) IU/L Alkaline Phosphatase (42-121) IU/L Total Protein (6.7-8.2) g/dL Albumin (3.2-5.5) g/dL Globulin (2.1-4.2) g/dL Albumin/Globulin Ratio (1.0-2.2) 09/30/18 09/30/18 09/30/18 Range/Units 16:20 11:39 07:25 WBC (4.8-10.8) x10^3/uL RBC (4.70-6.10) 10^6/uL Hgb (14.0-18.0) g/dL Hct (42.0-52.0) % MCV (80.0-94.0) fL MCH (27.0-31.0) pg MCHC (32.0-36.0) g/dL RDW (12.0-15.0) % Plt Count (130-450) 10^3/uL MPV (7.4-11.4) fL Neut # (Auto) (1.5-6.6) 10^3/uL Lymph # (Auto) (1.5-3.5) 10^3/uL Russell # (Auto) (0.0-1.0) 10^3/uL Eos # (Auto) (0.0-0.7) 10^3/uL Baso # (Auto) (0.0-0.1) 10^3/uL Absolute Nucleated RBC x10^3/uL Nucleated RBC % /100WBC PT (9.9-12.6) secs INR (0.8-1.2) Sodium (135-145) mmol/L Potassium (3.5-5.0) mmol/L Chloride (101-111) mmol/L Carbon Dioxide (21-32) mmol/L Anion Gap (6-13) BUN (6-20) mg/dL Creatinine (0.6-1.2) mg/dL Estimated GFR (MDRD) (>89) Glucose (70-100) mg/dL POC Whole Bld Glucose 154 H 126 H 141 H (70 - 100) mg/dL Calcium (8.5-10.3) mg/dL Phosphorus (2.5-4.6) mg/dL Magnesium (1.7-2.8) mg/dL Total Bilirubin (0.2-1.0) mg/dL AST (10-42) IU/L ALT (10-60) IU/L Alkaline Phosphatase (42-121) IU/L Total Protein (6.7-8.2) g/dL Albumin (3.2-5.5) g/dL Globulin (2.1-4.2) g/dL Albumin/Globulin Ratio (1.0-2.2) 09/29/18 09/29/18 09/29/18 Range/Units 20:41 16:31 11:47 WBC (4.8-10.8) x10^3/uL RBC (4.70-6.10) 10^6/uL Hgb (14.0-18.0) g/dL Hct (42.0-52.0) % MCV (80.0-94.0) fL MCH (27.0-31.0) pg MCHC (32.0-36.0) g/dL RDW (12.0-15.0) % Plt Count (130-450) 10^3/uL MPV (7.4-11.4) fL Neut # (Auto) (1.5-6.6) 10^3/uL Lymph # (Auto) (1.5-3.5) 10^3/uL Russell # (Auto) (0.0-1.0) 10^3/uL Eos # (Auto) (0.0-0.7) 10^3/uL Baso # (Auto) (0.0-0.1) 10^3/uL Absolute Nucleated RBC x10^3/uL Nucleated RBC % /100WBC PT (9.9-12.6) secs INR (0.8-1.2) Sodium (135-145) mmol/L Potassium (3.5-5.0) mmol/L Chloride (101-111) mmol/L Carbon Dioxide (21-32) mmol/L Anion Gap (6-13) BUN (6-20) mg/dL Creatinine (0.6-1.2) mg/dL Estimated GFR (MDRD) (>89) Glucose (70-100) mg/dL POC Whole Bld Glucose 121 H 106 H 103 H (70 - 100) mg/dL Calcium (8.5-10.3) mg/dL Phosphorus (2.5-4.6) mg/dL Magnesium (1.7-2.8) mg/dL Total Bilirubin (0.2-1.0) mg/dL AST (10-42) IU/L ALT (10-60) IU/L Alkaline Phosphatase (42-121) IU/L Total Protein (6.7-8.2) g/dL Albumin (3.2-5.5) g/dL Globulin (2.1-4.2) g/dL Albumin/Globulin Ratio (1.0-2.2) 09/29/18 09/28/18 09/28/18 Range/Units 07:28 20:36 16:27 WBC (4.8-10.8) x10^3/uL RBC (4.70-6.10) 10^6/uL Hgb (14.0-18.0) g/dL Hct (42.0-52.0) % MCV (80.0-94.0) fL MCH (27.0-31.0) pg MCHC (32.0-36.0) g/dL RDW (12.0-15.0) % Plt Count (130-450) 10^3/uL MPV (7.4-11.4) fL Neut # (Auto) (1.5-6.6) 10^3/uL Lymph # (Auto) (1.5-3.5) 10^3/uL Russell # (Auto) (0.0-1.0) 10^3/uL Eos # (Auto) (0.0-0.7) 10^3/uL Baso # (Auto) (0.0-0.1) 10^3/uL Absolute Nucleated RBC x10^3/uL Nucleated RBC % /100WBC PT (9.9-12.6) secs INR (0.8-1.2) Sodium (135-145) mmol/L Potassium (3.5-5.0) mmol/L Chloride (101-111) mmol/L Carbon Dioxide (21-32) mmol/L Anion Gap (6-13) BUN (6-20) mg/dL Creatinine (0.6-1.2) mg/dL Estimated GFR (MDRD) (>89) Glucose (70-100) mg/dL POC Whole Bld Glucose 106 H 127 H 121 H (70 - 100) mg/dL Calcium (8.5-10.3) mg/dL Phosphorus (2.5-4.6) mg/dL Magnesium (1.7-2.8) mg/dL Total Bilirubin (0.2-1.0) mg/dL AST (10-42) IU/L ALT (10-60) IU/L Alkaline Phosphatase (42-121) IU/L Total Protein (6.7-8.2) g/dL Albumin (3.2-5.5) g/dL Globulin (2.1-4.2) g/dL Albumin/Globulin Ratio (1.0-2.2) 09/28/18 09/28/18 Range/Units 11:01 07:33 WBC (4.8-10.8) x10^3/uL RBC (4.70-6.10) 10^6/uL Hgb (14.0-18.0) g/dL Hct (42.0-52.0) % MCV (80.0-94.0) fL MCH (27.0-31.0) pg MCHC (32.0-36.0) g/dL RDW (12.0-15.0) % Plt Count (130-450) 10^3/uL MPV (7.4-11.4) fL Neut # (Auto) (1.5-6.6) 10^3/uL Lymph # (Auto) (1.5-3.5) 10^3/uL Russell # (Auto) (0.0-1.0) 10^3/uL Eos # (Auto) (0.0-0.7) 10^3/uL Baso # (Auto) (0.0-0.1) 10^3/uL Absolute Nucleated RBC x10^3/uL Nucleated RBC % /100WBC PT (9.9-12.6) secs INR (0.8-1.2) Sodium (135-145) mmol/L Potassium (3.5-5.0) mmol/L Chloride (101-111) mmol/L Carbon Dioxide (21-32) mmol/L Anion Gap (6-13) BUN (6-20) mg/dL Creatinine (0.6-1.2) mg/dL Estimated GFR (MDRD) (>89) Glucose (70-100) mg/dL POC Whole Bld Glucose 146 H 118 H (70 - 100) mg/dL Calcium (8.5-10.3) mg/dL Phosphorus (2.5-4.6) mg/dL Magnesium (1.7-2.8) mg/dL Total Bilirubin (0.2-1.0) mg/dL AST (10-42) IU/L ALT (10-60) IU/L Alkaline Phosphatase (42-121) IU/L Total Protein (6.7-8.2) g/dL Albumin (3.2-5.5) g/dL Globulin (2.1-4.2) g/dL Albumin/Globulin Ratio (1.0-2.2) ABX Reporting Has patient been on IV antibiotics over the past 48 hours?: Yes Sepsis Event Note (H) - Evaluation Current Stage of Sepsis: Ruled out Assessment/Plan - Problem List (1) Right heart failure, NYHA class 3 Impression: Echo results from 09/28/18 show an EF of 60%, pulmonary HTN with an RVSP of 64 mmHg, and a small pericardial effusion. He has known MAGDALENO and now stage 4 lung cancer since March of 2018. He states that over the past week, his leg edema and abdominal girth has increased. He has been so debilitated due to his profound leg edema, only taking shuffling steps. He coto been switched to Lasix oral today, Spironolactone, and his zafar has been removed. I personally replaced his MAURICE hose which he should wear at least daily. Plan: Continue metoprolol, lasix, daily weights, vital signs. (2) Tachycardia Impression: The patient has much improved heart rates of 70-90's. He continues on daily IV digoxin. I have adjusted his metoprolol dose to hopefully stop the digoxin. Plan: Continue to titrate metoprolol dose and anticipate discontinuing the digoxin for home use. (3) Confusion Impression: The patient was more confused this morning, but is much improved by this afternoon, and confirmed by his , Haylee. He received his last oral prednisone this morning, which is the last dose. Plan: Continue to monitor mental status. (4) Chronic atrial fibrillation Impression: The patient is anticoagulated with warfarin which was approved by his oncology team. Today his INR is at 3.6 and his Warfarin is on hold. His heart rates are much improved today at 70-90's. Plan: Continue rate control with daily digoxin after loading doses, metoprolol, daily INRs and watch for signs of bleeding. (5) Pericardial effusion Impression: An echocardiogram was completed which shows a small pericardial effusion that is new since his last echo, BUT not new since his last oncology exam. Plan: continue to monitor. (6) Pneumonia Impression: The patient had evidence of infiltrates on initial chest x-ray, was tachycardic, with increased fatigue, increased oxygen needs and an elevated WBC count, he has been continued on IV ampicillin-sulbactam and azithromycin to treat bilateral pneumonia. This is now changed to oral antibiotic due to loss of IV access overnight and in anticipation of going home. Plan: Respiratory care, PO antibiotics, a probiotic, daily labs, and monitor for improvement. (7) Cor pulmonale Impression: Echo results show an RVSP at rest of 64 mmHg that is increased from 51 mmHg in July, in addition, he has RV enlargement. He has known MAGDALENO, which he states that he is compliant with, and now stage 4 lung cancer since March of 2018. He states that over the past week, his leg edema and abdominal girth has increased. He has been treated with lasix since admission. His chronic BLE edema is much less than the time of admission. Plan: Continue daily spironolactone. Continue home CPAP at night with 3L bleed in. Respiratory care with nebs. (8) Type 2 diabetes mellitus Impression: The patient has a good HgA1C of 6.1%, and is prescribed Metformin. He and his state that he has been diabetic for the past ~5 years. He unfortunately has had anorexia at home for the past week and has been steadily loosing weight since his diagnosis of stage 4 lung CA in March 2018. His early AM sugar was 157 today, but we will continue to hold off on Lantus, which would be added to replace his home Metformin. Plan: Continue SSI and sugar checks. Carb controlled since his appetite has improved. Qualifiers: Diabetes mellitus stablehand insulin use: without mcfp use Diabetes mellitus complication status: without complication Qualified Code(s): E11.9 - Type 2 diabetes mellitus without complications (9) Malignant neoplasm of right lung stage 4 Impression: The patient and his are very appreciative about suggesting Palliative care and thankfully Evienilsa Dale has been checking in daily while inpatient. The patient will likely have increased needs physically and future plans with oncology, and course of treatment goals can be made. The patient states that he does not know the actual prognosis of this disease and continues with out patient treatment and there may be rehab potential after this hospital stay. Plan: Continue supportive care, Palliative care to follow and Home health order for PT is pending. (10) MAGDALENO on CPAP Impression: The patient states that he has been on CPAP for at least the past 25 years, and states that he never sleeps without it. It is in his room. Plan: Ensure home CPAP orders are on the chart, continue use at HS for sleeping. Bleed in O2 @ 3L. (11) Oxygen dependent Impression: The patient has recently been prescribed home oxygen as per PCP and remains at 3L nasal cannula. He complains of a dry mouth, without evidence of thrush and this is improved today. He did state that the saline spray has been helpful. I do not know the company who supplies his home oxygen. Plan: Continue respiratory care, nebs, oxygen and nightly CPAP. 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 His indwelling zafar has been removed today, and the patient has been urinating well. He continues on Flomax. Plan: Continue Flomax, accurate I/Os.
[2018-10-01] MEDS: LEVALBUTEROL 1.25 MG/3 ML NEB INH PRN (14:42)
[2018-10-02] MEDS: SODIUM CHLORIDE FLUSH 0.9% 10 ML SYRINGE IVP SCH ×4 (00:48→23:45)
[2018-10-02] MEDS ORDERED: MORPHINE ER 15 MG TABLET PO PRN (05:31)
[2018-10-02] MEDS: FUROSEMIDE 40 MG TABLET PO SCH ×2 (06:01→14:05)
[2018-10-02 06:29] LABS: BASOPHILS % (AUTO) 0.3 %; HGB - HEMOGLOBIN 11.7 g/dL (14.0-18.0); LYMPHOCYTES # (AUTO) 0.9 10^3/uL (1.5-3.5); LYMPHOCYTES % (AUTO) 6.2 %; MEAN CORPUSCULAR HEMOGLOBIN 29.3 pg (27.0-31.0); MEAN CORPUSCULAR HGB CONC 32.1 g/dL (32.0-36.0); MEAN PLATELET VOLUME 7.6 fL (7.4-11.4); MONOCYTES # (AUTO) 1.4 10^3/uL (0.0-1.0); MONOCYTES % (AUTO) 9.8 %; NEUTROPHILS # (AUTO) 12.2 10^3/uL (1.5-6.6); NEUTROPHILS % (AUTO) 83.7 %; PLT - PLATELET COUNT 169 10^3/uL (130-450); RED BLOOD COUNT 3.99 10^6/uL (4.70-6.10); RED CELL DISTRIBUTION WIDTH 15.5 % (12.0-15.0); WHITE BLOOD COUNT 14.6 x10^3/uL (4.8-10.8)
[2018-10-02 06:45] LABS: ALBUMIN 3.4 g/dL (3.2-5.5); ALBUMIN/GLOBULIN RATIO 0.9 (1.0-2.2); CALCIUM 8.5 mg/dL (8.5-10.3); CREATININE 0.9 mg/dL (0.6-1.2)
[2018-10-02] MEDS: INSULIN ASPART 300 UNIT/3 ML PEN SUBQ SCH (07:42)
[2018-10-02] MEDS: METOPROLOL SUCCINATE 50 MG TABLET PO SCH ×2 (08:28→20:23)
[2018-10-02] MEDS: SACCHAROMYCES BOULARDII 250 MG CAPSULE PO SCH ×3 (08:30→18:57)
[2018-10-02] MEDS: AMOX/CLAV 875 MG/125 MG TABLET PO SCH ×2 (08:30→20:23)
[2018-10-02] MEDS: ASPIRIN EC 81 MG TABLET PO SCH (08:30)
[2018-10-02] MEDS: AZITHROMYCIN 250 MG TABLET PO SCH (08:31)
[2018-10-02] MEDS: predniSONE 20 MG TABLET PO SCH (08:31)
[2018-10-02] MEDS: SODIUM CHLORIDE FLUSH 0.9% 10 ML SYRINGE IVP PRN ×2 (08:31→19:31)
[2018-10-02] MEDS: SPIRONOLACTONE 25 MG TABLET PO SCH (08:31)
[2018-10-02] MEDS: LORATADINE 10 MG TABLET PO SCH (08:31)
[2018-10-02] MEDS: TAMSULOSIN 0.4 MG CAPSULE PO SCH (08:31)
[2018-10-02] MEDS: FAMOTIDINE 20 MG TABLET PO SCH ×2 (08:31→20:23)
[2018-10-02] MEDS: HYDROcod/ACETAM 5/325 MG TABLET PO PRN (08:31)
[2018-10-02] MEDS: ATORVASTATIN 40 MG TABLET PO SCH (08:31)
[2018-10-02] MEDS: DIGOXIN 500 MCG/2 ML AMP IVP SCH (08:32)
[2018-10-02] MEDS: KETOCONAZOLE 2% CREAM 15 GM TUBE TOP SCH ×2 (08:32→20:29)
[2018-10-02] MEDS: POLYETHYLENE GLYCOL 3350 17 GM PACKET PO SCH (08:32)
[2018-10-02] MEDS: NYSTATIN POWDER 15 GM TOP SCH ×2 (08:33→20:29)
[2018-10-02] MEDS: QUEtiapine 25 MG TABLET PO PRN ×3 (08:39→20:27)
[2018-10-02] MEDS: WARFARIN 2.5 MG TABLET PO SCH (14:06)
--- NOTE | 2018-10-02 15:23 | PROVIDER PROGRESS NOTE ---
Subjective - Prog Note Date Prog Note Date: 10/02/18 Prog Note Time: 15:22 - Subjective Pt reports feeling: No change Subjective: Chintan complains of ongoing pain to his buttocks and pelvis and continues to be moderately confused. He required a 1:1 sitter last night, which will likely continue tonight. He denies chest pressure or pain, nausea, vomiting, a rash or a new cough. Current Medications - Current Medications Current Medications: Active Medications Acetaminophen (Tylenol) 650 mg PO Q4HR PRN PRN Reason: Pain 1 to 4 Hydrocodone Bitart/Acetaminophen (Raymond 5/325) 2 tab PO Q4H PRN PRN Reason: PAIN Last Admin: 10/02/18 08:31 Dose: 2 tab Amoxicillin/Clavulanate Potassium (Augmentin 875/125) 1 tab PO BID [facility] Stop: 10/03/18 21:01 Last Admin: 10/02/18 08:30 Dose: 1 tab Aspirin (Ecotrin) 81 mg PO DAILY [facility] Last Admin: 10/02/18 08:30 Dose: 81 mg Atorvastatin Calcium (Lipitor) 40 mg PO DAILY [facility] Last Admin: 10/02/18 08:31 Dose: 40 mg Azithromycin (Zithromax) 250 mg PO DAILY JR Stop: 10/04/18 09:01 Last Admin: 10/02/18 08:31 Dose: 250 mg Digoxin (Lanoxin Inj) 250 mcg IVP DAILY [facility] Last Admin: 10/02/18 08:32 Dose: 250 mcg Famotidine (Pepcid) 20 mg PO BID [facility] Last Admin: 10/02/18 08:31 Dose: 20 mg Furosemide (Lasix) 40 mg PO BIDDIURETIC [facility] Last Admin: 10/02/18 14:05 Dose: 40 mg Heparin Sodium (Beef Lung) () 30 - 50 unit IVP PRN PRN PRN Reason: Port Protocol (<24 hours) Last Admin: 10/02/18 08:32 Dose: 50 unit Hydromorphone HCl (Dilaudid Inj Carp) 1 mg IVP Q2HR PRN PRN Reason: PAIN Last Admin: 10/01/18 11:36 Dose: 1 mg Ketoconazole (Nizoral 2% Cream) 1 applic TOP BID [facility] Last Admin: 10/02/18 08:32 Dose: 1 applic Levalbuterol HCl (Xopenex) 1.25 mg INH Q2HR PRN PRN Reason: Wheezing Last Admin: 10/01/18 14:42 Dose: 1.25 mg Lidocaine HCl (Xylocaine Uro-Jet 2%) 2.5 ml UR Q6H PRN PRN Reason: PAIN Last Admin: 09/28/18 13:22 Dose: 2.5 ml Loratadine (Claritin) 10 mg PO DAILY [facility] Last Admin: 10/02/18 08:31 Dose: 10 mg Metoprolol Succinate (Toprol Xl) 100 mg PO BID [facility] Last Admin: 10/02/18 08:28 Dose: 100 mg Metoprolol Tartrate (Lopressor Inj) 5 mg IVP Q4HR PRN PRN Reason: Tachycardia Morphine Sulfate (Morphine (Carpuject)) 2 mg IVP Q4HR PRN PRN Reason: Pain 8 to 10 Morphine Sulfate () 15 mg PO Q8H PRN PRN Reason: PAIN Nystatin (Nystop) 1 applic TOP BID [facility] Last Admin: 10/02/18 08:33 Dose: 1 applic Ondansetron HCl (Zofran Inj) 4 mg IVP Q6HR PRN PRN Reason: Nausea / Vomiting Polyethylene Glycol (Miralax) 17 gm PO DAILY [facility] Last Admin: 10/02/18 08:32 Dose: Not Given Prednisone (Deltasone) 20 mg PO DAILYWM [facility] Last Admin: 10/02/18 08:31 Dose: 20 mg Prochlorperazine Edisylate (Compazine Inj) 10 mg IVP Q6HR PRN PRN Reason: Nausea / Vomiting Quetiapine Fumarate (Seroquel) 25 mg PO BID PRN PRN Reason: Agitation Last Admin: 10/02/18 08:39 Dose: 25 mg Saccharomyces Boulardii (Florastor) 500 mg PO BIDWM [facility] Last Admin: 10/02/18 08:30 Dose: 500 mg Sodium Chloride (Normal Saline Flush 0.9%) 10 ml IVP PRN PRN PRN Reason: NEEDED PER PROVIDER ORDERS Last Admin: 10/01/18 11:36 Dose: 10 ml Sodium Chloride (Normal Saline Flush 0.9%) 10 ml IVP 0100,0900,1700 [facility] Last Admin: 10/02/18 08:31 Dose: 10 ml Sodium Chloride (Normal Saline Flush 0.9%) 20 ml IVP PRN PRN PRN Reason: After Blood Draw Last Admin: 10/02/18 08:31 Dose: 20 ml Sodium Chloride ([place]) 2 sprays JAS Q4HR PRN PRN Reason: Nasal Congestion Last Admin: 10/01/18 10:03 Dose: 1 spr Spironolactone (Aldactone) 25 mg PO DAILY [facility] Last Admin: 10/02/18 08:31 Dose: 25 mg Tamsulosin HCl (Flomax) 0.4 mg PO DAILY [facility] Last Admin: 10/02/18 08:31 Dose: 0.4 mg Warfarin Sodium (Coumadin) 2.5 mg PO QDWARFARIN [facility] Last Admin: 10/02/18 14:06 Dose: 2.5 mg Zolpidem Tartrate (Ambien) 5 mg PO QPM PRN PRN Reason: Insomnia Atorvastatin Calcium 40 mg PO DAILY 10/14/16 Doxazosin Mesylate 8 mg PO DAILY 10/14/16 Lisinopril 40 mg PO DAILY 10/14/16 amLODIPine [Norvasc] 10 mg PO DAILY 10/14/16 metFORMIN [Glucophage] 500 mg PO BID 10/14/16 Acetaminophen [Extra Strength Non-Aspirin] 500 mg PO BID 09/28/18 Cholecalciferol (Vitamin D3) [Vitamin D3] 2,000 unit PO DAILY 09/28/18 HYDROcod/ACETAM 5/325 [Raymond 5/325] 1 - 2 tab PO Q4H PRN 09/28/18 Loratadine [Allergy] 10 mg PO DAILY 09/28/18 Morphine Sulfate [Morphine Sulfate ER] 15 mg PO Q8H 09/28/18 Warfarin Sodium 5 mg PO DAILY 09/28/18 Objective - Vital Signs/Intake & Output Reviewed Vital Signs: Yes Vital Signs: Vital Signs x48h Temp Pulse Pulse Resp BP Pulse Ox 10/02/18 08:32 110 H 10/02/18 07:41 36.3 C L 89 19 125/91 H 99 Intake & Output: Intake & Output 09/29/18 09/30/18 10/01/18 10/02/18 23:59 23:59 23:59 23:59 Intake Total 1290 2330 1280 1370 Output Total 5632 2290 4112 Balance -1385 -2690 -971 1370 - Objective General Appearance: positive: Alert, Moderate distress, Anxious Eyes Bilateral: positive: PERRL, No lid inflammation Eyes: OU Conjunctivae pale ENT: positive: Pharynx nml, Dry mucous membranes Neck: positive: Thyroid nml, No JVD, Trachea midline Respiratory: positive: Chest non-tender, No respiratory distress, Other (scattered crackles.) Cardiovascular: positive: No gallop, Irregularly irregular, Tachycardia, Systoli c murmur Peripheral Pulses: 1+ Radial (R), 1+ Radial (L) Back: positive: Nml inspection Skin: positive: No rash, Warm, Dry Extremities: positive: Non-tender, Pedal edema, Joint swelling, Other (chronic BLEs) Neurologic/Psychiatric: positive: Disoriented to place, Disoriented to time, Weakness, Sensory loss, Slurred/abnml speech, Depressed mood/affect, Other (baseline mild dementia, now with delirium) Reflexes: Bicep (R): 3+, Bicep (L): 3+ - Lab Results Fish Bones: 10/02/18 06:18 10/02/18 06:18 Other Labs: Lab Results x24hrs 10/02/18 10/02/18 10/02/18 Range/Units 11:16 07:39 06:18 WBC (4.8-10.8) x10^3/uL RBC (4.70-6.10) 10^6/uL Hgb (14.0-18.0) g/dL Hct (42.0-52.0) % MCV (80.0-94.0) fL MCH (27.0-31.0) pg MCHC (32.0-36.0) g/dL RDW (12.0-15.0) % Plt Count (130-450) 10^3/uL MPV (7.4-11.4) fL Neut # (Auto) (1.5-6.6) 10^3/uL Lymph # (Auto) (1.5-3.5) 10^3/uL [place] # (Auto) (0.0-1.0) 10^3/uL Eos # (Auto) (0.0-0.7) 10^3/uL Baso # (Auto) (0.0-0.1) 10^3/uL Absolute Nucleated RBC x10^3/uL Nucleated RBC % /100WBC Sodium 136 (135-145) mmol/L Potassium 3.9 (3.5-5.0) mmol/L Chloride 99 L (101-111) mmol/L Carbon Dioxide 29 (21-32) mmol/L Anion Gap 8.0 (6-13) BUN 40 H (6-20) mg/dL Creatinine 0.9 (0.6-1.2) mg/dL Estimated GFR (MDRD) 83 L (>89) Glucose 119 H (70-100) mg/dL POC Whole Bld Glucose 121 H 108 H (70 - 100) mg/dL Calcium 8.5 (8.5-10.3) mg/dL Total Bilirubin 1.0 (0.2-1.0) mg/dL AST 41 (10-42) IU/L ALT 47 (10-60) IU/L Alkaline Phosphatase 158 H (42-121) IU/L Total Protein 7.0 (6.7-8.2) g/dL Albumin 3.4 (3.2-5.5) g/dL Globulin 3.6 (2.1-4.2) g/dL Albumin/Globulin Ratio 0.9 L (1.0-2.2) 10/02/18 10/01/18 10/01/18 Range/Units 06:18 20:16 16:48 WBC 14.6 H (4.8-10.8) x10^3/uL RBC 3.99 L (4.70-6.10) 10^6/uL Hgb 11.7 L (14.0-18.0) g/dL Hct 36.4 L (42.0-52.0) % MCV 91.0 (80.0-94.0) fL MCH 29.3 (27.0-31.0) pg MCHC 32.1 (32.0-36.0) g/dL RDW 15.5 H (12.0-15.0) % Plt Count 169 (130-450) 10^3/uL MPV 7.6 (7.4-11.4) fL Neut # (Auto) 12.2 H (1.5-6.6) 10^3/uL Lymph # (Auto) 0.9 L (1.5-3.5) 10^3/uL [place] # (Auto) 1.4 H (0.0-1.0) 10^3/uL Eos # (Auto) 0.0 (0.0-0.7) 10^3/uL Baso # (Auto) 0.0 (0.0-0.1) 10^3/uL Absolute Nucleated RBC 0.00 x10^3/uL Nucleated RBC % 0.0 /100WBC Sodium (135-145) mmol/L Potassium (3.5-5.0) mmol/L Chloride (101-111) mmol/L Carbon Dioxide (21-32) mmol/L Anion Gap (6-13) BUN (6-20) mg/dL Creatinine (0.6-1.2) mg/dL Estimated GFR (MDRD) (>89) Glucose (70-100) mg/dL POC Whole Bld Glucose 210 H 153 H (70 - 100) mg/dL Calcium (8.5-10.3) mg/dL Total Bilirubin (0.2-1.0) mg/dL AST (10-42) IU/L ALT (10-60) IU/L Alkaline Phosphatase (42-121) IU/L Total Protein (6.7-8.2) g/dL Albumin (3.2-5.5) g/dL Globulin (2.1-4.2) g/dL Albumin/Globulin Ratio (1.0-2.2) ABX Reporting Has patient been on IV antibiotics over the past 48 hours?: No Sepsis Event Note (H) - Evaluation Current Stage of Sepsis: Ruled out Assessment/Plan - Problem List (1) Right heart failure, NYHA class 3 Impression: Echo results from 09/28/18 show an EF of 60%, pulmonary HTN with an RVSP of 64 mmHg, and a small pericardial effusion. He has known MAGDALENO and now stage 4 lung cancer since March of 2018. He states that over the past week, his leg edema and abdominal girth has increased. He has been so debilitated due to his profound leg edema, only taking shuffling steps. He coto been switched to Lasix oral, Spironolactone, and his zafar has been removed. He continues to wear his MAURICE hose which he should wear at least daily. Plan: Continue metoprolol, lasix, daily weights, vital signs. (2) Pneumonia Impression: The patient had evidence of infiltrates on initial chest x-ray, was tachycardic, with increased fatigue, increased oxygen needs and an elevated WBC count, he has been continued on IV ampicillin-sulbactam and azithromycin to treat bilateral pneumonia. He continues on oral antibiotics in anticipation of going home. Plan: Respiratory care, PO antibiotics, a probiotic, daily labs, and monitor for improvement. (3) Malignant neoplasm of right lung stage 4 Impression: The patient and his are very appreciative about suggesting Palliative care and thankfully Evie Dale has been checking in daily while inpatient. The patient will likely have increased needs physically and future plans with oncology, and course of treatment goals can be made. The patient states that he does not know the actual prognosis of this disease and continues with out patient treatment and there may be rehab potential after this hospital stay. * I have called [facility] who accepts this patient tomorrow for a transfer to allow for palliative radiation for the patient's pelvic/spinal mets with Dr. Jeffers. Plan: Continue supportive care, Palliative care to follow and Home health order for PT is pending. (4) Tachycardia Impression: The patient has heart rates from 90-110's today, that may be due to some urinary retention. He continues on daily IV digoxin, that will be changed to PO, pending a Dig serum level tomorrow. Plan: Continue to titrate metoprolol dose and anticipate discontinuing the digoxin for home use. (5) Agitation Impression: The patient was more confused and agitated overnight and required a one on one sitter with the addition of seroquel. His , Haylee has been here most of the day, but this has been very taxing on her as he becomes mean and verbally abusive toward her during this time of AMS. His medications have been adjusted to reduce confusion, but today this is still the case. Plan: Continue to monitor mental status. (6) Chronic atrial fibrillation Impression: The patient is anticoagulated with warfarin which was approved by his oncology team. Today his INR is at 3.6 was not checked despite pharmacy stating that they would monitor this. His heart rates are much improved today at 70-90's. His Warfarin was resumed at only 2.5mg today. Plan: Continue rate control with daily digoxin after loading doses, metoprolol, daily INRs and watch for signs of bleeding. (7) Pericardial effusion Impression: An echocardiogram was completed which shows a small pericardial effusion that is new since his last echo, BUT not new since his last oncology exam. Plan: continue to monitor. (8) Cor pulmonale Impression: Echo results show an RVSP at rest of 64 mmHg that is increased from 51 mmHg in July, in addition, he has RV enlargement. He has known MAGDALENO, which he states that he is compliant with, and now stage 4 lung cancer since March of 2018. He states that over the past week, his leg edema and abdominal girth has increased. He has been treated with lasix since admission. His chronic BLE edema is much less than the time of admission. Plan: Continue daily spironolactone. Continue home CPAP at night with 3L bleed in. Respiratory care with nebs. (9) Type 2 diabetes mellitus Impression: The patient has a good HgA1C of 6.1%, and is prescribed Metformin. He and his state that he has been diabetic for the past ~5 years. He unfortunately has had anorexia at home for the past week and has been steadily loosing weight since his diagnosis of stage 4 lung CA in March 2018. His early AM sugar was 119 today, and I have stopped all blood sugar checks, with SSI. He is considered diet controlled. Plan: Monitor for signs of hypoglycemia, regular diet. Qualifiers: Diabetes mellitus bed bug exterminator insulin use: without bed bug exterminator use Diabetes mellitus complication status: without complication Qualified Code(s): E11.9 - Type 2 diabetes mellitus without complications (10) MAGDALENO on CPAP Impression: The patient states that he has been on CPAP for at least the past 25 years, and states that he never sleeps without it. It is in his room. Plan: Ensure home CPAP orders are on the chart, continue use at for sleeping. Bleed in O2 @ 3L. (11) Oxygen dependent Impression: The patient has recently been prescribed home oxygen as per PCP and remains at 3L nasal cannula. He complains of a dry mouth, without evidence of thrush and this is improved today. He did state that the saline spray has been helpful. Plan: Continue respiratory care, nebs, oxygen and nightly CPAP. 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 His indwelling zafar has been removed, and the patient has been urinating well but late this afternoon is having some dysuria. He continues on Flomax and I will re-start his doxazosin. Plan: Continue Flomax, accurate I/Os.
[2018-10-02] MEDS: LORazepam 2 MG/ML VIAL IVP PRN (19:28)
[2018-10-03] MEDS: SODIUM CHLORIDE FLUSH 0.9% 10 ML SYRINGE IVP PRN ×9 (00:48→10:52)
[2018-10-03] MEDS: LORazepam 2 MG/ML VIAL IVP PRN ×3 (00:48→07:03)
[2018-10-03] MEDS ORDERED: HALOPERIDOL 5 MG/ML VIAL IVP PRN ×2 (01:01→02:45)
[2018-10-03] MEDS: LEVALBUTEROL 1.25 MG/3 ML NEB INH PRN ×2 (02:32→10:25)
[2018-10-03] MEDS: MORPHINE 2 MG/ML CARPUJECT IVP PRN ×3 (02:37→09:34)
[2018-10-03] MEDS ORDERED: FUROSEMIDE 20 MG/2 ML VIAL IVP ONE (02:45)
--- NOTE | 2018-10-03 02:51 | PROVIDER PROGRESS NOTE ---
Hospitalist Cross-cover Note - Cross-Cover Note Cross-Cover Note: Responding to nursing request to address patient's agitation. Patient has been having episodes of agitation every night for the last several nights requiring different methods of treatment. There is no specific trigger, there does not appear to be any pain. Patient was previously complying with CPAP, but has been getting more and more restless and agitated over the night. He has now taken off his CPAP, he has been pulling on his lines. He has been requiring a one-to-one sitter. And at this point he has now become hypoxic, likely due to significant agitation, with pulse ox measurements in the mid to high 80s. His heart rate is relatively normal. He has just received a single dose of 1 mg IV Haldol which was not sufficient, this is after having received 5 mg of Ambien already. I instructed the nurse to provide 1 single dose of morphine 2 mg given that he may have some pain also for respiratory benefit. Despite this he is still significantly agitated so I instructed nursing staff to go ahead and use two-point soft restraints on his wrists. Physical exam reveals coarse crackling and I have ordered a single dose of Lasix 20 mg IV. After the Lasix, morphine, and a recent Haldol dose, I have also ordered a second 1 mg dose of Haldol as needed if his agitation does not improve shortly, and we will continue to follow and monitor clinical response.
[2018-10-03] MEDS ORDERED: LIDOCAINE 2% URO-JET 5 ML SYRINGE UR ONE (02:52)
[2018-10-03] MEDS ORDERED: FUROSEMIDE 20 MG TABLET PO SCH (06:00)
[2018-10-03] MEDS ORDERED: FUROSEMIDE 40 MG TABLET PO SCH (06:00)
[2018-10-03 06:28] LABS: BASOPHILS % (AUTO) 0.1 %; HGB - HEMOGLOBIN 11.8 g/dL (14.0-18.0); LYMPHOCYTES # (AUTO) 0.9 10^3/uL (1.5-3.5); LYMPHOCYTES % (AUTO) 5.9 %; MEAN CORPUSCULAR HEMOGLOBIN 29.3 pg (27.0-31.0); MEAN CORPUSCULAR HGB CONC 32.5 g/dL (32.0-36.0); MEAN CORPUSCULAR VOLUME 90.1 fL (80.0-94.0); MONOCYTES # (AUTO) 1.7 10^3/uL (0.0-1.0); MONOCYTES % (AUTO) 11.4 %; NEUTROPHILS # (AUTO) 12.1 10^3/uL (1.5-6.6); NEUTROPHILS % (AUTO) 82.6 %; PLT - PLATELET COUNT 162 10^3/uL (130-450); RED BLOOD COUNT 4.04 10^6/uL (4.70-6.10); RED CELL DISTRIBUTION WIDTH 15.3 % (12.0-15.0); WHITE BLOOD COUNT 14.6 x10^3/uL (4.8-10.8)
[2018-10-03 06:37] LABS: INR 2.5 (0.8-1.2); PT - PROTHROMBIN TIME 27.9 secs (9.9-12.6)
[2018-10-03 06:48] LABS: ALBUMIN 3.3 g/dL (3.2-5.5); BILIRUBIN,TOTAL 1.2 mg/dL (0.2-1.0); CALCIUM 8.3 mg/dL (8.5-10.3); MAGNESIUM 2.4 mg/dL (1.7-2.8); PHOSPHORUS 3.6 mg/dL (2.5-4.6); TOTAL PROTEIN 6.6 g/dL (6.7-8.2)
[2018-10-03] MEDS: FUROSEMIDE 40 MG/4 ML VIAL IVP SCH ×2 (06:49→14:15)
[2018-10-03 06:56] LABS: ABG BASE EXCESS 3.1 mmol/L (-2.0-3.0); ABG OXYGEN SATURATION 91 % (94-98); ABG PCO2 44 mmHg (34-45); ABG PH 7.42 (7.35-7.45); ABG PO2 60 mmHg (80-100); ABG TCO2 29.3 MMOL/L (21.0-29.0); ALLEN TEST POSITIVE
[2018-10-03 07:00] LABS: DIFFERENTIAL COMMENT MANUAL=AUTO DIFF; PLATELET ESTIMATE, MANUAL NORMAL (130-450,000) (NORMAL); RBC MORPHOLOGY (MULTIPLE) NORMAL APPEARANCE (NORMAL)
--- NOTE | 2018-10-03 08:01 | XRAY Report ---
Reason: Shortness of breath Procedure Date: 10/03/2018 Accession Number: [id number] / [id number] Procedure: XR - Chest 1 View X-Ray CPT Code: 83652 FULL RESULT: EXAM: CHEST RADIOGRAPHY EXAM DATE: 10/03/2018 07:00 AM. CLINICAL HISTORY: Shortness of breath. COMPARISON: 09/27/2018. TECHNIQUE: 1 view. FINDINGS: Denies: Stable left subclavian chest port to the SVC. Lungs/Pleura: Coarse bilateral interstitial opacities and central vascular prominence. Masslike opacity in right upper lobe again seen, accentuated by patient positioning. Probable small bilateral pleural effusions. Mediastinum: Accentuated by patient rotation. Borderline cardiomegaly and ectatic thoracic aorta. Other: No acute fracture evident. IMPRESSION: 1. Known right upper lobe mass. 2. Borderline cardiomegaly with possible mild interstitial pulmonary edema. [facility]
[2018-10-03 09:36] LABS: ABG BASE EXCESS 1.6 mmol/L (-2.0-3.0); ABG HCO3 25.9 mmol/L (22.0-26.0); ABG OXYGEN SATURATION 98 % (94-98); ABG PCO2 40 mmHg (34-45); ABG PH 7.43 (7.35-7.45); ABG PO2 114 mmHg (80-100); ABG TCO2 27.1 MMOL/L (21.0-29.0); ALLEN TEST POSITIVE
[2018-10-03] MEDS: SACCHAROMYCES BOULARDII 250 MG CAPSULE PO SCH (10:30)
[2018-10-03] MEDS: AZITHROMYCIN 250 MG TABLET PO SCH (10:31)
[2018-10-03] MEDS: ASPIRIN EC 81 MG TABLET PO SCH (10:31)
[2018-10-03] MEDS: AMOX/CLAV 875 MG/125 MG TABLET PO SCH (10:31)
[2018-10-03] MEDS: DIGOXIN 500 MCG/2 ML AMP IVP SCH (10:31)
[2018-10-03] MEDS: ATORVASTATIN 40 MG TABLET PO SCH (10:31)
[2018-10-03] MEDS: FAMOTIDINE 20 MG TABLET PO SCH (10:32)
[2018-10-03] MEDS: LORATADINE 10 MG TABLET PO SCH (10:32)
[2018-10-03] MEDS: METOPROLOL SUCCINATE 50 MG TABLET PO SCH (10:32)
[2018-10-03] MEDS: TAMSULOSIN 0.4 MG CAPSULE PO SCH (10:33)
[2018-10-03] MEDS: SPIRONOLACTONE 25 MG TABLET PO SCH (10:33)
[2018-10-03] MEDS: POLYETHYLENE GLYCOL 3350 17 GM PACKET PO SCH (10:35)
[2018-10-03] MEDS: SODIUM CHLORIDE FLUSH 0.9% 10 ML SYRINGE IVP SCH ×2 (10:53→15:13)
[2018-10-03] MEDS: NYSTATIN POWDER 15 GM TOP SCH ×2 (10:53→20:27)
[2018-10-03] MEDS: KETOCONAZOLE 2% CREAM 15 GM TUBE TOP SCH ×2 (10:53→20:27)
[2018-10-03] MEDS: HYDROmorphone 1 MG/ML CARPUJECT IVP PRN (11:00)
[2018-10-03] MEDS ORDERED: MORPHINE 2 MG/ML CARPUJECT IVP PRN (11:15)
--- NOTE | 2018-10-03 11:20 | PROVIDER PROGRESS NOTE ---
Assessment/Plan - Problem List (1) Pulmonary edema Qualifiers: Chronicity: acute Qualified Code(s): J81.0 - Acute pulmonary edema Assessment/Plan: The patient is 3L positive fluid balance over the past 24 hours. I asked the who was in his room all day, if he was taking in fluids and she reported that he was "drinking alot of water because his mouth was so dry". BNP ruth to 2722 from 800's yesterday and the STAT morning CXR showed pulmonary edema (mild). ABG was done that showed hypoxemia, but good pH and CO2. Pt moved to ICU, put on BIPAP. ABG repeated and his oxygenation is >100. Will change all meds from po to iv, start iv Lasix bid, and iv Morphine prn dyspnea, follow I's and O's. Will check for an ND with troponins and EKG. Control HR with Dig and Lopressor iv scheduled doses. Follow BMP, Mg. The plan for transfer for palliative radiation will be cancelled til he is stabilized. He is now in critical condition. (2) Altered mental status Qualifiers: Altered mental status type: delirium Qualified Code(s): R41.0 - Disorientation, unspecified Assessment/Plan: His confusion began 2 days ago when steroids started. Yesterday he had a head CT to evaluate for mets, and this was unremarkable. His clinical picture is that of delirium in a very ill geriatric patient and could be from : being in pain, the side effect of narcotics given for pain, anti-emetics causing confusion, hypoxia, elevated LFTs today, use of a mix of psychotropic meds and sedatives, or underlying infection. He is not uremic and not hypotensive (hypoperfusing his brain). He also seems to be in pain, clenching his fists, lifting his buttocks off the bed Morphine. Will stop antiemetics, Haldol, Ativan and sleeping meds so they are not used. Will keep po Seroquel prn, if he can swallow later, for treating . Will check an ammonia level. Check a lactic acid level. Continue empiric iv antibiotics, avoiding hepatotoxins. (3) Pneumonitis Assessment/Plan: The admission CXR was consistent with either a CAP or pneumonitis from chemo. Steroids were tried, as advised by Oncology, but started to make him agitated and confused and were stopped. He pulled out his iv overnight, therefore his iv Zithromax and Augmentin were changed to po Augmentin just this am. Will restart iv antibiotics with broad spectrum coverage, will use Zosyn 4.45 g iv q6h. Follow WBC daily. Will change prn nebs q2h to scheduled, using Xopenex for less tachycardic effect. Continue supportive O2/BIPAP. (4) Pericardial effusion Assessment/Plan: This was felt to be part of the pneumonitis side effect of his Ktruda, or due to heart failure. Monitor for tamponade, but it is a small pericardial effusion. IV diuresis will also help this. (5) Malignant neoplasm of right lung stage 4 Assessment/Plan: I reconfirmed with his that he expressed wishes for aggressive medical management, before being confused the last 2 days, including being put on a ventilator. He was on Dilaudid for pelvic and LS spine pain from mets. I will change that to Morphine, which will help his pulmonary status as well. (6) MAGDALENO on CPAP Assessment/Plan: He was ordered to be using his home CPAP unit since admission. The reports that he was on continuous daytime O2 per nasal cannula at home, but would take it off in frustration or due to discomfort. BIPAP now ordered. (7) Cor pulmonale Assessment/Plan: Due to #3, 5,6 above. Continue TEDS and diuresis. (8) Chronic atrial fibrillation Assessment/Plan: Control HR with Dig and Lopressor iv scheduled doses. He will be off Coumadin while he is NPO. Will monitor daily INR, start therapeutic Lovenox doses when his INR is <2. Check Dig level in am and watch renal function. (9) BPH with obstruction/lower urinary tract symptoms Assessment/Plan: His Dumont was stopped 1 day ago, but needed to be restarted last night, when iv Lasix was ordered and with his worsening confusion. The u/o is good, showing diuretic effect from iv Lasix doses, but blood tinged urine today, probably from reinsertion of Dumont. Continue Dumont for critical care monitoring. (10) Type 2 diabetes mellitus Qualifiers: Diabetes mellitus skilled nursing insulin use: without skilled nursing use Diabetes mellitus complication status: without complication Qualified Code(s): E11.9 - Type 2 diabetes mellitus without complications Assessment/Plan: Will change his ss Insulin to not-eating, continue fingerstick glu checks. (11) Hypertension Assessment/Plan: iv meds will be used. On q1h BP checks in ICU. - Current Meds Current Meds: Current Medications Generic Name Dose Route Start Last Admin Trade Name Freq PRN Reason Stop Dose Admin Azithromycin 250 mg 10/01/18 09:00 10/03/18 10:31 Zithromax PO 10/04/18 09:01 Not Given DAILY JR Digoxin 250 mcg 09/30/18 09:00 10/03/18 10:31 Lanoxin Inj IVP Not Given DAILY JR Furosemide 40 mg 10/03/18 07:00 10/03/18 06:49 Lasix Inj 40 Mg Vial IVP 40 mg BIDDIURETIC JR Administration Heparin Sodium (Beef Lung) 30 - 50 unit 09/28/18 00:16 10/03/18 00:48 IVP 30 unit PRN PRN Administration Port Protocol (<24 hours) Ketoconazole 1 applic 09/28/18 09:00 10/03/18 10:53 Nizoral 2% Cream TOP 1 applic BID JR Administration Lidocaine HCl 2.5 ml 09/28/18 11:35 09/28/18 13:22 Xylocaine Uro-Jet 2% UR 2.5 ml Q6H PRN Administration PAIN Nystatin 1 applic 09/29/18 12:00 10/03/18 10:53 Nystop TOP 1 applic BID JR Administration Sodium Chloride 10 ml 09/27/18 22:15 10/03/18 10:52 Normal Saline Flush 0.9% IVP 20 ml PRN PRN Administration NEEDED PER PROVIDER ORDERS Tamsulosin HCl 0.4 mg 09/30/18 13:00 10/03/18 10:33 Flomax PO Not Given DAILY JR Warfarin Sodium 2.5 mg 10/02/18 14:00 10/02/18 14:06 Coumadin PO 2.5 mg QDWARFARIN JR Administration - Lab Result Fish Bone Diagrams: 10/03/18 05:38 10/03/18 05:38 - EKG Results EKG Interpreted Independently: Yes EKG Comparison: Unchanged from prior EKG EKG Findings: Afib, rate 96, a ventr. couplet, low voltage in limb leads, diffusely abn T waves. Since 12/3/18, ventricular couplet is new, other findings are similar. - Additional Planning My Orders: My Active Orders 10/03/18 07:45 MRSA PCR, CCU ADMIT [RAPID] Stat 10/03/18 11:15 Morphine Inj (Carpuject) [Morphine (Carpuject)] 2 mg IVP Q4HR PRN 10/03/18 13:00 Levalbuterol [Xopenex] 1.25 mg INH Q4HR 10/03/18 21:00 QUEtiapine [SEROquel] 25 mg PO 2100 PRN Subjective - Subjective Patient Reports: Other (Not answering questions, or folowing commands or responding to wigfe's voice, is agitated, and fidgity, on BIPAP in ICU.) Nursing Reports: Other (Pt developed severe SOB with abdominal breathing and tugging, but was confused.) Objective Vital Signs: Vital Signs - 24 hr 10/02/18 10/02/18 10/02/18 15:30 16:00 20:05 Temperature Heart Rate 86 54 L Heart Rate [ 95 Brachial] Respiratory 16 18 18 Rate Blood Pressure 122/82 H [Right Brachial artery] O2 Saturation 98 10/02/18 10/03/18 10/03/18 20:21 00:30 02:20 Temperature 36.4 C L Heart Rate Heart Rate [ 107 H 62 Brachial] Respiratory 20 28 H Rate Blood Pressure 143/78 H 128/79 [Right Brachial artery] O2 Saturation 94 95 96 10/03/18 10/03/18 10/03/18 02:45 03:30 04:30 Temperature Heart Rate Heart Rate [ Brachial] Respiratory 28 H 30 H Rate Blood Pressure [Right Brachial artery] O2 Saturation 83 L 95 96 10/03/18 10/03/18 10/03/18 05:12 06:14 06:59 Temperature 36.7 C Heart Rate Heart Rate [ 121 H 125 H 95 Brachial] Respiratory 30 H Rate Blood Pressure 130/56 L [Right Brachial artery] O2 Saturation 94 96 95 10/03/18 10/03/18 10/03/18 08:00 08:10 10:00 Temperature 36.4 C L 36.5 C Heart Rate 101 H Heart Rate [ 109 H 105 H Brachial] Respiratory 30 H 35 H Rate Blood Pressure 108/76 128/101 H [Right Brachial artery] O2 Saturation 99 97 10/03/18 10/03/1810/03/18 10:10 10:25 10:31 Temperature Heart Rate 103 H 107 H 102 H Heart Rate [ Brachial] Respiratory 31 H Rate Blood Pressure [Right Brachial artery] O2 Saturation 10/03/18 11:00 Temperature Heart Rate Heart Rate [ 95 Brachial] Respiratory 25 H Rate Blood Pressure 118/76 [Right Brachial artery] O2 Saturation 95 Oxygen O2 Source [Without Activity] Nasal cannula O2 Source BIPAP Oxygen Flow Rate 2 I&O (Last 24 Hrs): Intake and Output Totals x24h 10/01/18 10/02/18 10/03/18 23:59 23:59 23:59 Intake Total 1280 2730 Output Total 2251 611 2495 Balance -971 1880 -2495 General: Other (Disoriented, fidgity, pulling at things, not answering, on BIPAP) HEENT: Other (Lips are pink, cannot see oral mucosa) Neck: Supple, Other (Obese) Neuro: Other (Obtunded and fidgity) Cardiovascular: Regular rate, No murmurs, Other (Distant heart sounds) Respiratory: Other (Moerate resp distress, diminishe breath sounds, no wheezing or rales heard.) Abdomen: Other (Distended, non-tender, cannot R/O hepatomegaly or ascites.) Extremities: Other (3+ edema to knees, has TEDS stockings on.) - Results Results: Laboratory Results WBC 14.6 x10^3/uL (4.8-10.8) H 10/03/18 05:38 RBC 4.04 10^6/uL (4.70-6.10) L 10/03/18 05:38 Hgb 11.8 g/dL (14.0-18.0) L 10/03/18 05:38 Hct 36.4 % (42.0-52.0) L 10/03/18 05:38 MCV 90.1 fL (80.0-94.0) 10/03/18 05:38 MCH 29.3 pg (27.0-31.0) 10/03/18 05:38 MCHC 32.5 g/dL (32.0-36.0) 10/03/18 05:38 RDW 15.3 % (12.0-15.0) H 10/03/18 05:38 Plt Count 162 10^3/uL (130-450) 10/03/18 05:38 MPV 8.0 fL (7.4-11.4) 10/03/18 05:38 Neut # (Auto) 12.1 10^3/uL (1.5-6.6) H 10/03/18 05:38 Lymph # (Auto) 0.9 10^3/uL (1.5-3.5) L 10/03/18 05:38 Dukes # (Auto) 1.7 10^3/uL (0.0-1.0) H 10/03/18 05:38 Eos # (Auto) 0.0 10^3/uL (0.0-0.7) 10/03/18 05:38 Baso # (Auto) 0.0 10^3/uL (0.0-0.1) 10/03/18 05:38 Absolute Nucleated RBC 0.00 x10^3/uL 10/03/18 05:38 Band Neuts % (Manual) Not Reportable 10/03/18 05:38 Abnorm Lymph % (Manual) Not Reportable 10/03/18 05:38 Nucleated RBC % 0.0 /100WBC 10/03/18 05:38 Neutrophils # (Manual) Not Reportable 10/03/18 05:38 Lymphocytes # (Manual) Not Reportable 10/03/18 05:38 Monocytes # (Manual) Not Reportable 10/03/18 05:38 Eosinophils # (Manual) Not Reportable 10/03/18 05:38 Basophils # (Manual) Not Reportable 10/03/18 05:38 Differential Comment MANUAL=AUTO DIFF 10/03/18 05:38 Platelet Estimate NORMAL (130-450,000) (NORMAL) 10/03/18 05:38 RBC Morph Micro Appear NORMAL APPEARANCE (NORMAL) 10/03/18 05:38 PT 27.9 secs (9.9-12.6) H 10/03/18 05:38 INR 2.5 (0.8-1.2) H 10/03/18 05:38 Bld Gas Analysis Time 0939 10/03/18 09:35 Sample Site RIGHT RADIAL 10/03/18 09:35 ABG pH 7.43 (7.35-7.45) 10/03/18 09:35 ABG pCO2 40 mmHg (34-45) 10/03/18 09:35 ABG pO2 114 mmHg (80-100) H 10/03/18 09:35 ABG HCO3 25.9 mmol/L (22.0-26.0) 10/03/18 09:35 ABG Total CO2 27.1 MMOL/L (21.0-29.0) 10/03/18 09:35 ABG O2 Saturation 98 % (94-98) 10/03/18 09:35 ABG Oximetry Spot Check 98 % 10/03/18 09:35 ABG Base Excess 1.6 mmol/L (-2.0-3.0) 10/03/18 09:35 Luisito Test POSITIVE 10/03/18 09:35 Respiration Rate 27 b/min 10/03/18 09:35 O2 Delivery Device BiPAP 10/03/18 09:35 O2 Liters/Min 15.00 LPM 10/03/18 06:47 Vent Mode SYNCHRONOUS/TIMES 10/03/18 09:35 FiO2 50.00 10/03/18 09:35 Tidal Volume 630 mL 10/03/18 09:35 Pressure Support Vent 5 cmH2O 10/03/18 09:35 EPAP 5 cmH2O 10/03/18 09:35 IPAP 10 cmH2O 10/03/18 09:35 Sodium 136 mmol/L (135-145) 10/03/18 05:38 Potassium 4.0 mmol/L (3.5-5.0) 10/03/18 05:38 Chloride 98 mmol/L (101-111) L 10/03/18 05:38 Carbon Dioxide 29 mmol/L (21-32) 10/03/18 05:38 Anion Gap 9.0 (6-13) 10/03/18 05:38 BUN 36 mg/dL (6-20) H 10/03/18 05:38 Creatinine 1.0 mg/dL (0.6-1.2) 10/03/18 05:38 Estimated GFR (MDRD) 74 (>89) L 10/03/18 05:38 Glucose 129 mg/dL (70-100) H 10/03/18 05:38 POC Whole Bld Glucose 121 mg/dL (70 - 100) H 10/02/18 11:16 Glycated Hemoglobin 6.1 % (4.6-6.2) 09/28/18 04:46 Estim Average Glucose 128 (70-100) H 09/28/18 04:46 Lactic Acid 1.0 mmol/L (0.5-2.2) 10/03/18 07:27 Calcium 8.3 mg/dL (8.5-10.3) L 10/03/18 05:38 Phosphorus 3.6 mg/dL (2.5-4.6) 10/03/18 05:38 Magnesium 2.4 mg/dL (1.7-2.8) 10/03/18 05:38 Total Bilirubin 1.2 mg/dL (0.2-1.0) H 10/03/18 05:38 AST 119 IU/L (10-42) H 10/03/18 05:38 ALT 130 IU/L (10-60) H 10/03/18 05:38 Alkaline Phosphatase 154 IU/L (42-121) H 10/03/18 05:38 B-Natriuretic Peptide 2722 pg/mL (5-100) H 10/03/18 05:38 Total Protein 6.6 g/dL (6.7-8.2) L 10/03/18 05:38 Albumin 3.3 g/dL (3.2-5.5) 10/03/18 05:38 Globulin 3.3 g/dL (2.1-4.2) 10/03/18 05:38 Albumin/Globulin Ratio 1.0 (1.0-2.2) 10/03/18 05:38 Lipase 19 U/L (22-51) L 09/27/18 19:30 Urine Color YELLOW 09/28/18 16:10 Urine Clarity CLEAR (CLEAR) 09/28/18 16:10 Urine pH 5.0 PH (5.0-7.5) 09/28/18 16:10 Ur Specific [place] 1.020 (1.002-1.030) 09/28/18 16:10 Urine Protein NEGATIVE mg/dL (NEGATIVE) 09/28/18 16:10 Urine Glucose (UA) NEGATIVE mg/dL (NEGATIVE) 09/28/18 16:10 Urine Ketones NEGATIVE mg/dL (NEGATIVE) 09/28/18 16:10 Urine Occult Blood LARGE (NEGATIVE) H 09/28/18 16:10 Urine Nitrite NEGATIVE (NEGATIVE) 09/28/18 16:10 Urine Bilirubin NEGATIVE (NEGATIVE) 09/28/18 16:10 Urine Urobilinogen 0.2 (NORMAL) E.U./dL (NORMAL) 09/28/18 16:10 Ur Leukocyte Esterase TRACE (NEGATIVE) H 09/28/18 16:10 Urine RBC TNTC /HPF (0-5) H 09/28/18 16:10 Urine WBC 4-5 /HPF (0-3) 09/28/18 16:10 Ur Squamous Epith Cells NONE SEEN (<= Few) 09/28/18 16:10 Urine Bacteria Rare /HPF (None Seen) 09/28/18 16:10 Urine Casts 3-5 Hyaline Casts /LPF 09/28/18 16:10 Urine Mucus Few Strands 09/28/18 16:10 Urine Culture Comments INDICATED 09/28/18 16:10 - Procedures Procedures: Procedures INSPECTION OF LOWER INTESTINAL TRACT, ENDO (10/15/16) Sepsis Event Note (H) - Evaluation Current Stage of Sepsis: Ruled out Possible source of Sepsis: positive: Pulmonary - Sepsis Criteria Sepsis Criteria: Recorded Heart Rate greater than 90 bpm
[2018-10-03] MEDS ORDERED: SODIUM CHLORIDE 0.9% MINIBAG 100 ML IV ONE (12:57)
[2018-10-03] MEDS ORDERED: SODIUM CHLORIDE 0.9% 500 ML IV ONE (12:58)
[2018-10-03] MEDS: LEVALBUTEROL 1.25 MG/3 ML NEB INH SCH ×3 (13:02→20:32)
[2018-10-03] MEDS: PIPERACILLIN/TAZOBACTAM 4.5 GM in SODIUM CHLORIDE 0.9% MINIBAG 100 ML IV SCH ×2 (13:10→19:32)
[2018-10-03] MEDS: HYDROmorphone 2 MG/ML VIAL IVP PRN ×5 (13:15→23:13)
[2018-10-03] MEDS: WARFARIN 2.5 MG TABLET PO SCH (14:16)
[2018-10-03] MEDS: QUEtiapine 25 MG TABLET PO PRN (21:57)
[2018-10-04] MEDS: PIPERACILLIN/TAZOBACTAM 4.5 GM in SODIUM CHLORIDE 0.9% MINIBAG 100 ML IV SCH ×4 (00:59→18:09)
[2018-10-04] MEDS: HYDROmorphone 2 MG/ML VIAL IVP PRN ×8 (01:54→23:14)
[2018-10-04 05:38] LABS: BASOPHILS % (AUTO) 0.1 %; EOSINOPHILS % (AUTO) 0.2 %; HGB - HEMOGLOBIN 11.5 g/dL (14.0-18.0); LYMPHOCYTES # (AUTO) 0.8 10^3/uL (1.5-3.5); LYMPHOCYTES % (AUTO) 6.5 %; MEAN CORPUSCULAR HEMOGLOBIN 29.5 pg (27.0-31.0); MEAN CORPUSCULAR HGB CONC 32.9 g/dL (32.0-36.0); MEAN CORPUSCULAR VOLUME 89.8 fL (80.0-94.0); MONOCYTES # (AUTO) 1.3 10^3/uL (0.0-1.0); MONOCYTES % (AUTO) 10.4 %; NEUTROPHILS # (AUTO) 10.1 10^3/uL (1.5-6.6); NEUTROPHILS % (AUTO) 82.8 %; PLT - PLATELET COUNT 159 10^3/uL (130-450); RED CELL DISTRIBUTION WIDTH 15.3 % (12.0-15.0); WHITE BLOOD COUNT 12.2 x10^3/uL (4.8-10.8)
[2018-10-04 05:42] LABS: INR 2.1 (0.8-1.2); PT - PROTHROMBIN TIME 23.9 secs (9.9-12.6)
[2018-10-04 05:50] LABS: ALBUMIN/GLOBULIN RATIO 0.9 (1.0-2.2); BILIRUBIN,TOTAL 1.3 mg/dL (0.2-1.0); CALCIUM 8.1 mg/dL (8.5-10.3); CREATININE 1.1 mg/dL (0.6-1.2); TOTAL PROTEIN 6.2 g/dL (6.7-8.2)
[2018-10-04] MEDS: FUROSEMIDE 40 MG/4 ML VIAL IVP SCH ×2 (06:08→14:29)
[2018-10-04] MEDS: LEVALBUTEROL 1.25 MG/3 ML NEB INH SCH ×4 (07:23→20:57)
[2018-10-04] MEDS: DIGOXIN 500 MCG/2 ML AMP IVP SCH (09:36)
[2018-10-04] MEDS: POTASSIUM CHLORIDE 20 MEQ TABLET PO SCH (09:36)
[2018-10-04] MEDS: AZITHROMYCIN 250 MG TABLET PO SCH (09:36)
[2018-10-04] MEDS: TAMSULOSIN 0.4 MG CAPSULE PO SCH (09:36)
--- NOTE | 2018-10-04 09:55 | XRAY Report ---
Reason: CHF and pneumonitis Procedure Date: 10/04/2018 Accession Number: [id number] / [id number] Procedure: XR - Chest 1 View X-Ray CPT Code: 30261 FULL RESULT: EXAM: CHEST RADIOGRAPHY EXAM DATE: 10/04/2018 07:02 AM. CLINICAL HISTORY: CHF and pneumonitis. COMPARISON: 10/03/2018. TECHNIQUE: 1 view. FINDINGS: Lungs/Pleura: Right upper lung mass with right apical lateral pleural thickening. Other right-sided lung masses. Diffuse right-sided infiltrates. Small right effusion. Left basilar atelectasis or scarring Mediastinum: Cardiomegaly. Enlarged mediastinum known mediastinal lymph nodes Other: None. IMPRESSION: 1. Right lung masses largest upper lobe 2. Diffuse right-sided infiltrates with small right effusion.. 3. Left basilar atelectasis or scarring. RADIA
--- NOTE | 2018-10-04 11:53 | PROVIDER PROGRESS NOTE ---
Assessment/Plan - Problem List (1) Pulmonary edema Qualifiers: Chronicity: acute Qualified Code(s): J81.0 - Acute pulmonary edema Assessment/Plan: He was 3L (+) when he came to ICU from [facility] yesterday. Over 1 day he diuresed 4L. His weight is 9 kg down from his biggest weight during this admission. CXR describes less of a pleural effusion and he is able to come off BIPAP for 10 min before desaturating and needing BIPAP resumed. With better oxygenation and less work of breathing, he is mentating better as well. He has no appetite suggesting bowel edema still present. Continue iv diuretics, follow I's and O's. Decrease the Potassium replacement when diuretics will be decreased. Will add po Spironolactone as his iv diuretic will transition to po. Monitor K, Mg, BUN/creat daily. RT to help titrate his supplemental oxygen down as tolerated. Patient is still not stable for transfer to [facility], for Palliative Radiation. Today, I spoke to Dr Jeffers, Radiation Oncologist, and updated him that the patient may be stable for transfer in 2-3 days. (2) Altered mental status Qualifiers: Altered mental status type: delirium Qualified Code(s): R41.0 - Dis orientation, unspecified Assessment/Plan: Improving. (3) Pneumonitis Assessment/Plan: CXR today shows an infiltrate on R. This is suspicious for aspiration PNA. His antibiotics were changed yesterday to cover HCAP, starting Zosyn iv. Since his respiratory status is improving, will continue the antibiotic to cover HCAP organisms and add Flagyl 500 mg iv q8h for a possible aspiration pnemonia. Will obtain a swallowing eval by Speech Therapist. Follwow his CXR daily while on BIPAP in the ICU. (4) Pericardial effusion Assessment/Plan: Continue to manage with gentle diuresis. (5) Malignant neoplasm of right lung stage 4 Assessment/Plan: His pelvic and low back pain, due to mets, is under somewhat better control. Pt is still not stable for transfer to [facility], for Palliative Radiation, but this will be the plan once he is ready for DCh. (6) MAGDALENO on CPAP Assessment/Plan: RT to try weaning his O2 requirements down on BIPAP. His home CPAP device was used here, and can be resumed. (7) Cor pulmonale Assessment/Plan: When he was in pulmonary edema yesterday, he also had worsened R heart failure as evidenced by elevation of LFTs yesterday, from passive congestion of the liver. Today the LFTs are decreasing. He has no appetite suggesting bowel edema still present. Continue gentle diuresis, following I's and O's and BUN/creat, to avoid over-di uresis. Will add po Spironolactone as his iv diuretic will transition to po. (8) Chronic atrial fibrillation Assessment/Plan: HR is 100-105 today, in Afib. Pt on Coumadin. Today's INR is 2.1. Pt on daily Dig only for rate control. Will add Metoprolol Succinate 25 mg po daily for rate control. Will check a Dig level in am. Follow INR daily, since his antibiotics may increase INR values. (9) BPH with obstruction/lower urinary tract symptoms Assessment/Plan: Dumont in place, was reinserted when he came to the ICU yesterday. ContinueFoley for I's and O's monitoring. (10) Type 2 diabetes mellitus Qualifiers: Diabetes mellitus intermediate insulin use: without terminal clerk use Diabetes mellitus complication status: without complication Qualified Code(s): E11.9 - Type 2 diabetes mellitus without complications Assessment/Plan: His A1c was 6 and he was to be on a Carb-controlled diet with fingerstick glu checks in the 100's. Bankruptcy Manager has recommended that we stop the carb-controlled restriction, but will add a total fluid restriction and low-salt diet. (11) Hypertension Assessment/Plan: Pt on B-blockers and iv diuretics currently for BP control. Will add po Spironolactone as his iv diuretic will transition to po. - Current Meds Current Meds: Current Medications Generic Name Dose Route Start Last Admin Trade Name Freq PRN Reason Stop Dose Admin Digoxin 250 mcg 09/30/18 09:00 10/04/18 09:36 Lanoxin Inj IVP 250 mcg DAILY JR Administration Furosemide 40 mg 10/03/18 07:00 10/04/18 06:08 Lasix Inj 40 Mg Vial IVP 40 mg BIDDIURETIC JR Administration Heparin Sodium (Beef Lung) 30 - 50 unit 09/28/18 00:16 10/03/18 00:48 IVP 30 unit PRN PRN Administration Port Protocol (<24 hours) Hydromorphone HCl 2 mg 10/03/18 13:00 10/04/18 10:20 Dilaudid (Vial) IVP 2 mg Q2H PRN Administration PAIN Piperacillin Sod/Tazobactam 100 mls @ 200 mls/hr 10/03/18 13:00 10/04/18 07:30 Sod 4.5 gm/ Sodium Chloride IV Infused Q6H JR Infusion Ketoconazole 1 applic 09/28/18 09:00 10/03/18 20:27 Nizoral 2% Cream TOP 1 applic BID JR Administration Levalbuterol HCl 1.25 mg 10/03/18 13:00 10/04/18 07:23 Xopenex INH 1.25 mg RTQ4H JR Administration Lidocaine HCl 2.5 ml 09/28/18 11:35 09/28/18 13:22 Xylocaine Uro-Jet 2% UR 2.5 ml Q6H PRN Administration PAIN Morphine Sulfate 2 mg 10/03/18 11:15 10/04/18 03:40 Morphine (Carpuject) IVP 2 mg Q4HR PRN Administration Dyspnea Nystatin 1 applic 09/29/18 12:00 10/03/18 20:27 Nystop TOP 1 applic BID JR Administration Potassium Chloride 20 meq 10/04/18 08:00 10/04/18 09:36 K-Dur PO 20 meq DAILYWM JR Administration Quetiapine Fumarate 25 mg 10/03/18 21:00 10/03/18 21:57 Seroquel PO 25 mg 2100 PRN Administration Agitation Sodium Chloride 10 ml 09/27/18 22:15 10/03/18 10:52 Normal Saline Flush 0.9% IVP 20 ml PRN PRN Administration NEEDED PER PROVIDER ORDERS Tamsulosin HCl 0.4 mg 09/30/18 13:00 10/04/18 09:36 Flomax PO 0.4 mg DAILY JR Administration Warfarin Sodium 2.5 mg 10/02/18 14:00 10/03/18 14:16 Coumadin PO Not Given QDWARFARIN RJ - Lab Result Fish Bone Diagrams: 10/04/18 05:00 10/04/18 05:00 - Additional Planning My Orders: My Active Orders 10/03/18 11:15 Morphine Inj (Carpuject) [Morphine (Carpuject)] 2 mg IVP Q4HR PRN 10/03/18 13:00 HYDROmorphone (VIAL) [Dilaudid (Vial)] 2 mg IVP Q2H PRN Levalbuterol [Xopenex] 1.25 mg INH RTQ4H Piperacillin/Tazobactam [Zosyn] 4.5 gm Sodium Chloride 0.9% Minibag [Normal Saline 0.9% Minibag] 100 ml IV Q6H 10/03/18 21:00 QUEtiapine [SEROquel] 25 mg PO 2100 PRN 10/04/18 Clinical Swallow Evaluation [ST] Routine 10/04/18 12:00 Metoprolol Succinate [Toprol Xl] 25 mg PO DAILY 10/04/18 Lunch DIET [Low Sodium Diet] [DIET] 10/05/18 05:00 BMP - BASIC METABOLIC PANEL [CHEM] DAILYLAB BNP - B-NATRIURETIC PEPTIDE [IAI] DAILYLAB CBC - COMP BLD CT W/AUTO DIFF [HEME] DAILYLAB DIGOXIN [CHEM] DAILYLAB MAGNESIUM [CHEM] DAILYLAB 10/05/18 09:00 Chest 1 View X-Ray [XR] DAILY 10/06/18 05:00 BMP - BASIC METABOLIC PANEL [CHEM] DAILYLAB BNP - B-NATRIURETIC PEPTIDE [IAI] DAILYLAB CBC - COMP BLD CT W/AUTO DIFF [HEME] DAILYLAB MAGNESIUM [CHEM] DAILYLAB 10/06/18 09:00 Chest 1 View X-Ray [XR] DAILY 10/07/18 05:00 BMP - BASIC METABOLIC PANEL [CHEM] DAILYLAB CBC - COMP BLD CT W/AUTO DIFF [HEME] DAILYLAB MAGNESIUM [CHEM] DAILYLAB 10/07/18 09:00 Chest 1 View X-Ray [XR] DAILY Subjective - Subjective Patient Reports: Feeling Better, Resting Comfortably, Other (Aware of self and place. Answered that he has no appetite.) Nursing Reports: Other (Less confused, able to remove BIPAP to swallow pills.) Objective Vital Signs: Vital Signs - 24 hr 10/03/18 10/03/18 10/03/18 12:00 12:10 13:00 Temperature Heart Rate 102 H Heart Rate [ 86 102 H Brachial] Respiratory 26 H 22 Rate Blood Pressure 107/83 H 116/73 [Right Brachial artery] O2 Saturation 96 94 10/03/18 10/03/18 10/03/18 13:02 13:58 14:00 Temperature 36.6 C Heart Rate 103 H 91 Heart Rate [ 103 H Brachial] Respiratory 37 H 23 Rate Blood Pressure 122/76 [Right Brachial artery] O2 Saturation 91 L 10/03/18 10/03/18 10/03/18 15:00 16:00 16:05 Temperature 36.8 C Heart Rate 92 Heart Rate [ 94 93 Brachial] Respiratory 22 21 Rate Blood Pressure 124/68 122/80 [Right Brachial artery] O2 Saturation 96 96 10/03/18 10/03/18 10/03/18 16:21 17:00 18:00 Temperature Heart Rate 95 Heart Rate [ 96 102 H Brachial] Respiratory 20 24 15 Rate Blood Pressure 118/79 108/73 [Right Brachial artery] O2 Saturation 94 96 10/03/18 10/03/18 10/03/18 18:12 19:00 20:00 Temperature Heart Rate 97 Heart Rate [ 84 95 Brachial] Respiratory 19 18 Rate Blood Pressure 126/83 H 131/79 H [Right Brachial artery] O2 Saturation 95 97 10/03/18 10/03/18 10/03/18 20:32 20:43 21:00 Temperature 37.1 C Heart Rate 100 Heart Rate [ 97 100 Brachial] Respiratory 23 15 12 Rate Blood Pressure 125/88 H [Right Brachial artery] O2 Saturation 95 97 10/03/18 10/03/18 10/03/18 22:00 23:00 23:28 Temperature Heart Rate 105 H Heart Rate [ 112 H 104 H Brachial] Respiratory 23 17 Rate Blood Pressure 132/98 H 123/97 H [Right Brachial artery] O2 Saturation 99 93 10/04/18 10/04/18 10/04/18 00:00 01:00 01:36 Temperature 36.9 C Heart Rate 108 H Heart Rate [ 114 H 83 Brachial] Respiratory 20 10 L Rate Blood Pressure 123/95 H 101/65 [Right Brachial artery] O2 Saturation 97 95 10/04/18 10/04/18 10/04/18 02:00 03:00 03:35 Temperature Heart Rate 117 H Heart Rate [ 101 H 103 H Brachial] Respiratory 23 17 Rate Blood Pressure 115/77 104/80 [Right Brachial artery] O2 Saturation 96 96 10/04/18 10/04/18 10/04/18 04:00 05:00 05:23 Temperature 36.5 C Heart Rate 101 H Heart Rate [ 106 H 106 H Brachial] Respiratory 27 H 17 Rate Blood Pressure 112/82 H 127/77 [Right Brachial artery] O2 Saturation 100 95 10/04/18 10/04/18 10/04/18 06:00 07:24 08:00 Temperature Heart Rate 112 H Heart Rate [ 113 H 122 H Brachial] Respiratory 26 H 25 H 22 Rate Blood Pressure 122/77 114/93 H [Right Brachial artery] O2 Saturation 98 99 10/04/18 10/04/18 10/04/18 09:00 09:36 09:50 Temperature Heart Rate 111 H 95 Heart Rate [ 105 H Brachial] Respiratory 22 Rate Blood Pressure 113/77 [Right Brachial artery] O2 Saturation 95 10/04/18 11:00 Temperature Heart Rate Heart Rate [ 109 H Brachial] Respiratory 19 Rate Blood Pressure 132/87 H [Right Brachial artery] O2 Saturation 96 Oxygen O2 Source [Without Activity] Nasal cannula O2 Source BIPAP Oxygen Flow Rate 2 I&O (Last 24 Hrs): Intake and Output Totals x24h 10/02/18 10/03/18 10/04/18 23:59 23:59 23:59 Intake Total 2730 200 1390 Output Total 850 4435 591 Balance 1880 -4235 799 General: Alert, No acute distress HEENT: Mucous membr. moist/pink Neck: Supple Neuro: Non Focal Cardiovascular: No murmurs Respiratory: Other (diminished bilat, no wheezing or rales) Abdomen: Soft, Other (Obese, cannot R/O ascites) Extremities: No edema - Results Results: Laboratory Results WBC 12.2 x10^3/uL (4.8-10.8) H 10/04/18 05:00 RBC 3.90 10^6/uL (4.70-6.10) L 10/04/18 05:00 Hgb 11.5 g/dL (14.0-18.0) L 10/04/18 05:00 Hct 35.0 % (42.0-52.0) L 10/04/18 05:00 MCV 89.8 fL (80.0-94.0) 10/04/18 05:00 MCH 29.5 pg (27.0-31.0) 10/04/18 05:00 MCHC 32.9 g/dL (32.0-36.0) 10/04/18 05:00 RDW 15.3 % (12.0-15.0) H 10/04/18 05:00 Plt Count 159 10^3/uL (130-450) 10/04/18 05:00 MPV 8.0 fL (7.4-11.4) 10/04/18 05:00 Neut # (Auto) 10.1 10^3/uL (1.5-6.6) H 10/04/18 05:00 Lymph # (Auto) 0.8 10^3/uL (1.5-3.5) L 10/04/18 05:00 Yancey # (Auto) 1.3 10^3/uL (0.0-1.0) H 10/04/18 05:00 Eos # (Auto) 0.0 10^3/uL (0.0-0.7) 10/04/18 05:00 Baso # (Auto) 0.0 10^3/uL (0.0-0.1) 10/04/18 05:00 Absolute Nucleated RBC 0.00 x10^3/uL 10/04/18 05:00 Band Neuts % (Manual) Not Reportable 10/03/18 05:38 Abnorm Lymph % (Manual) Not Reportable 10/03/18 05:38 Nucleated RBC % 0.0 /100WBC 10/04/18 05:00 Neutrophils # (Manual) Not Reportable 10/03/18 05:38 Lymphocytes # (Manual) Not Reportable 10/03/18 05:38 Monocytes # (Manual) Not Reportable 10/03/18 05:38 Eosinophils # (Manual) Not Reportable 10/03/18 05:38 Basophils # (Manual) Not Reportable 10/03/18 05:38 Differential Comment MANUAL=AUTO DIFF 10/03/18 05:38 Platelet Estimate NORMAL (130-450,000) (NORMAL) 10/03/18 05:38 RBC Morph Micro Appear NORMAL APPEARANCE (NORMAL) 10/03/18 05:38 PT 23.9 secs (9.9-12.6) H 10/04/18 05:00 INR 2.1 (0.8-1.2) H 10/04/18 05:00 Bld Gas Analysis Time 0939 10/03/18 09:35 Sample Site RIGHT RADIAL 10/03/18 09:35 ABG pH 7.43 (7.35-7.45) 10/03/18 09:35 ABG pCO2 40 mmHg (34-45) 10/03/18 09:35 ABG pO2 114 mmHg (80-100) H 12 09:35 ABG HCO3 25.9 mmol/L (22.0-26.0) 10/03/18 09:35 ABG Total CO2 27.1 MMOL/L (21.0-29.0) 10/03/18 09:35 ABG O2 Saturation 98 % (94-98) 10/03/18 09:35 ABG Oximetry Spot Check 98 % 10/03/18 09:35 ABG Base Excess 1.6 mmol/L (-2.0-3.0) 10/03/18 09:35 Luisito Test POSITIVE 10/03/18 09:35 Respiration Rate 27 b/min 10/03/18 09:35 O2 Delivery Device BiPAP 10/03/18 09:35 O2 Liters/Min 15.00 LPM 10/03/18 06:47 Vent Mode SYNCHRONOUS/TIMES 10/03/18 09:35 FiO2 50.00 10/03/18 09:35 Tidal Volume 630 mL 10/03/18 09:35 Pressure Support Vent 5 cmH2O 10/03/18 09:35 EPAP 5 cmH2O 10/03/18 09:35 IPAP 10 cmH2O 10/03/18 09:35 Sodium 135 mmol/L (135-145) 10/04/18 05:00 Potassium 3.5 mmol/L (3.5-5.0) 10/04/18 05:00 Chloride 94 mmol/L (101-111) L 10/04/18 05:00 Carbon Dioxide 32 mmol/L (21-32) 10/04/18 05:00 Anion Gap 9.0 (6-13) 10/04/18 05:00 BUN 34 mg/dL (6-20) H 10/04/18 05:00 Creatinine 1.1 mg/dL (0.6-1.2) 10/04/18 05:00 Estimated GFR (MDRD) 66 (>89) L 10/04/18 05:00 Glucose 115 mg/dL (70-100) H 10/04/18 05:00 POC Whole Bld Glucose 121 mg/dL (70 - 100) H 10/02/18 11:16 Glycated Hemoglobin 6.1 % (4.6-6.2) 09/28/18 04:46 Estim Average Glucose 128 (70-100) H 09/28/18 04:46 Lactic Acid 1.0 mmol/L (0.5-2.2) 10/03/18 07:27 Calcium 8.1 mg/dL (8.5-10.3) L 10/04/18 05:00 Phosphorus 3.6 mg/dL (2.5-4.6) 10/03/18 05:38 Magnesium 2.4 mg/dL (1.7-2.8) 10/03/18 05:38 Total Bilirubin 1.3 mg/dL (0.2-1.0) H 10/04/18 05:00 AST 44 IU/L (10-42) H 10/04/18 05:00 ALT 85 IU/L (10-60) H 10/04/18 05:00 Alkaline Phosphatase 139 IU/L (42-121) H 10/04/18 05:00 Ammonia < 10.0 umol/L (7-35) 10/03/18 12:14 Troponin I 0.07 ng/mL (<0.49) 10/03/18 22:58 B-Natriuretic Peptide 2559 pg/mL (5-100) H 10/04/18 05:00 Total Protein 6.2 g/dL (6.7-8.2) L 10/04/18 05:00 Albumin 3.0 g/dL (3.2-5.5) L 10/04/18 05:00 Globulin 3.2 g/dL (2.1-4.2) 10/04/18 05:00 Albumin/Globulin Ratio 0.9 (1.0-2.2) L 10/04/18 05:00 Lipase 19 U/L (22-51) L 09/27/18 19:30 Urine Color YELLOW 09/28/18 16:10 Urine Clarity CLEAR (CLEAR) 09/28/18 16:10 Urine pH 5.0 PH (5.0-7.5) 09/28/18 16:10 Ur Specific [place] 1.020 (1.002-1.030) 09/28/18 16:10 Urine Protein NEGATIVE mg/dL (NEGATIVE) 09/28/18 16:10 Urine Glucose (UA) NEGATIVE mg/dL (NEGATIVE) 09/28/18 16:10 Urine Ketones NEGATIVE mg/dL (NEGATIVE) 09/28/18 16:10 Urine Occult Blood LARGE (NEGATIVE) H 09/28/18 16:10 Urine Nitrite NEGATIVE (NEGATIVE) 09/28/18 16:10 Urine Bilirubin NEGATIVE (NEGATIVE) 09/28/18 16:10 Urine Urobilinogen 0.2 (NORMAL) E.U./dL (NORMAL) 09/28/18 16:10 Ur Leukocyte Esterase TRACE (NEGATIVE) H 09/28/18 16:10 Urine RBC TNTC /HPF (0-5) H 09/28/18 16:10 Urine WBC 4-5 /HPF (0-3) 09/28/18 16:10 Ur Squamous Epith Cells NONE SEEN (<= Few) 09/28/18 16:10 Urine Bacteria Rare /HPF (None Seen) 09/28/18 16:10 Urine Casts 3-5 Hyaline Casts /LPF 09/28/18 16:10 Urine Mucus Few Strands 09/28/18 16:10 Urine Culture Comments INDICATED 09/28/18 16:10 Last Dose Date UNK 10/04/18 05:00 Last Dose Time UNK 10/04/18 05:00 Digoxin 1.0 ng/mL 10/04/18 05:00 - Procedures Procedures: Procedures INSPECTION OF LOWER INTESTINAL TRACT, ENDO (10/15/16) Sepsis Event Note (H) - Evaluation Current Stage of Sepsis: Ruled out Possible source of Sepsis: positive: Pulmonary - Sepsis Criteria Sepsis Criteria: Recorded Heart Rate greater than 90 bpm
[2018-10-04] MEDS ORDERED: METOPROLOL SUCCINATE 25 MG TABLET PO SCH (12:00)
[2018-10-04] MEDS: metroNIDAZOLE 500 MG/100 ML 500 MG/100 ML BAG IV SCH ×2 (14:11→20:50)
[2018-10-04] MEDS: WARFARIN 2.5 MG TABLET PO SCH (14:40)
[2018-10-04] MEDS: NYSTATIN POWDER 15 GM TOP SCH ×2 (15:05→20:51)
[2018-10-04] MEDS ORDERED: POTASSIUM CHLORIDE 20 MEQ TABLET PO ONE (16:18)
[2018-10-04] MEDS: KETOCONAZOLE 2% CREAM 15 GM TUBE TOP SCH ×2 (16:57→20:52)
--- NOTE | 2018-10-04 18:53 | CONSULTATION NOTE ---
Palliative Care Follow Up - Referral Referring Provider: Na WHITLEY Time of Visit: [id number] Referral setting: Hospitalized patient Referral Reason: Metastatic Lung Cancer with elizabeth mets/uncontrolled pain/AMS - Information Sources Records reviewed: RN notes reviewed, Previous records reviewed History/Review of Systems obtained from: Family ( Haylee at the bedside) Exam limitations: Clinical condition (patient remains confused; said he was in [place]; on Bipap) - History of Present Illness Update Brief HPI Update: This is a 73-year-old gentleman who was recently diagnosed with metastatic lung cancer to the nose, adrenal nodule thought to be metastatic disease as well as T5 and sacral uptake for bony metastases. He was admitted to [facility] for acute shortness of breath, functional decline, increased lower extremity edema and CHF. He has had unstable cardiac status with atrial fib with rapid ventricular response, pericardial effusion, fluid overload, and now with a BMP elevated, was placed in ICU. He did diurese 4 L, his weight is 9 kg down from highest weight in the admission, unfortunately he had to be put on BiPAP as he was quite hypoxic, patient's orientation status though he is more interactive he remains quite confused. It is unclear given his underlying etiology whether this was impacted by his recent Keytruda infusion, he was treated on therapeutic dose of steroids as he did have concern for pneumonitis versus pneumonia. Unfortunately over the last few days he has had escalating pain, he is receiving hydromorphone 2 mg every 2 hours, and is only lasting about 60-90 minutes at the most. Been ongoing difficulty balancing his altered mental status, confusion, hypoxia, and pain. Arrangements had been made with Dr. Jeffers at [place], for emergent radiation to see if could impact his underlying pain particularly in the sacral region, unfortunately this point in time he would not be able to tolerate stimulation, nor is stable for transfer. Palliative care did meet with Haylee today, who is the decision maker at this point in time as patient is no longer able to participate in goals of care conversation. We did discuss in the context the patient is not improving, we do not have a clear etiology for his underlying altered mental status, as well as his ongoing pain and discomfort. She is very clear at this point in time there is still willing to wait as far as outcomes, that if he were to have an end-of-life event she would not want him to be resuscitated at this point. They do have 1 son Solomon, who is going to be available to Haylee today, she is going home and they will continue to have a conversation regarding goals of care particularly patient continues to not improve. Social History - Living Situation Living arrangement: At home Living Situation: With spouse/s.o. Support System: Patient is always been independent, and "taking care of his ". is experience much loss since last year, and patient's decline has been fairly rapid, psychosocial support provided Medications/Allergies - Medications Active Medication List: Active Medications Digoxin (Lanoxin Inj) 250 mcg IVP DAILY [facility] Last Admin: 10/04/18 09:36 Dose: 250 mcg Furosemide (Lasix Inj 40 Mg Vial) 40 mg IVP BIDDIURETIC [facility] Last Admin: 10/04/18 14:29 Dose: 40 mg Heparin Sodium (Beef Lung) () 30 - 50 unit IVP PRN PRN PRN Reason: Port Protocol (<24 hours) Last Admin: 10/03/18 00:48 Dose: 30 unit Hydromorphone HCl (Dilaudid (Vial)) 2 mg IVP Q2H PRN PRN Reason: PAIN Last Admin: 10/04/18 17:58 Dose: 2 mg Piperacillin Sod/Tazobactam (Sod 4.5 gm/ Sodium Chloride) 100 mls @ 200 mls/hr IV Q6H [facility] Last Admin: 10/04/18 18:09 Dose: 200 mls/hr Metronidazole (Flagyl 500 Mg/100 Ml) 500 mg in 100 mls @ 100 mls/hr IV Q8H [facility] Last Infusion: 10/04/18 16:17 Dose: Infused Ketoconazole (Nizoral 2% Cream) 1 applic TOP BID [facility] Last Admin: 10/04/18 16:57 Dose: Not Given Levalbuterol HCl (Xopenex) 1.25 mg INH RTQ4H [facility] Last Admin: 10/04/18 15:24 Dose: 1.25 mg Lidocaine HCl (Xylocaine Uro-Jet 2%) 2.5 ml UR Q6H PRN PRN Reason: PAIN Last Admin: 09/28/18 13:22 Dose: 2.5 ml Metoprolol Succinate (Toprol Xl) 12.5 mg PO DAILY [facility] Morphine Sulfate (Morphine (Carpuject)) 2 mg IVP Q4HR PRN PRN Reason: Dyspnea Last Admin: 10/04/18 03:40 Dose: 2 mg Nystatin (Nystop) 1 applic TOP BID [facility] Last Admin: 10/04/18 15:05 Dose: 1 applic Potassium Chloride (K-Dur) 20 meq PO DAILYWM [facility] Last Admin: 10/04/18 09:36 Dose: 20 meq Prochlorperazine Edisylate (Compazine Inj) 10 mg IVP Q6HR PRN PRN Reason: Nausea / Vomiting Quetiapine Fumarate (Seroquel) 25 mg PO 2100 PRN PRN Reason: Agitation Last Admin: 10/03/18 21:57 Dose: 25 mg Sodium Chloride (Normal Saline Flush 0.9%) 10 ml IVP PRN PRN PRN Reason: NEEDED PER PROVIDER ORDERS Last Admin: 10/03/18 10:52 Dose: 20 ml Tamsulosin HCl (Flomax) 0.4 mg PO DAILY [facility] Last Admin: 10/04/18 09:36 Dose: 0.4 mg Warfarin Sodium (Coumadin) 2.5 mg PO QDWARFARIN [facility] Last Admin: 10/04/18 14:40 Dose: 2.5 mg Atorvastatin Calcium 40 mg PO DAILY 10/14/16 Doxazosin Mesylate 8 mg PO DAILY 10/14/16 Lisinopril 40 mg PO DAILY 10/14/16 amLODIPine [Norvasc] 10 mg PO DAILY 10/14/16 metFORMIN [Glucophage] 500 mg PO BID 10/14/16 Acetaminophen [Extra Strength Non-Aspirin] 500 mg PO BID 09/28/18 Cholecalciferol (Vitamin D3) [Vitamin D3] 2,000 unit PO DAILY 09/28/18 HYDROcod/ACETAM 5/325 [[place] 5/325] 1 - 2 tab PO Q4H PRN 09/28/18 Loratadine [Allergy] 10 mg PO DAILY 09/28/18 Morphine Sulfate [Morphine Sulfate ER] 15 mg PO Q8H 09/28/18 Warfarin Sodium 5 mg PO DAILY 09/28/18 - Allergies Allergies/Adverse Reactions: Allergies Allergy/AdvReac Type Severity Reaction Status Date / Time No Known Drug Allergies Allergy Verified 09/27/18 19:28 Review of Systems - Constitutional Constitutional: reports: Poor appetite (little intake; has been off bipap for only short periods), Weight loss (fluid weight; though has ongoing weight loss as well related to dx) - Cardiovascular Cardiovascular: reports: Edema (improved) - Respiratory Respiratory: reports: Orthopnea, SOB at rest, SOB with exertion, Other (currently on bipap) - Gastrointestinal Gastrointestinal: reports: Constipation (no bm documented since 10/02), Poor appetite, Other (bipap making difficult to eat) - Integumentary Integumentary: reports: Rash (improved) - Neurological Neurological: reports: General weakness, Memory problems, Slurred speech - Psychiatric Psychiatric: reports: Anxiety, Behavior disturbances - Endocrine Endocrine: reports: Diabetes type 2 - All Other Systems All Other Systems: reports: Other (limited ROS with AMS) Physical Exam - Vital Signs Vital Signs: Vital Signs x48h Temp Pulse Pulse Resp BP Pulse Ox 10/04/18 17:39 110 H 10/04/18 17:00 122 H 25 H 130/76 96 10/04/18 16:00 36.4 C L 117 H 20 116/69 97 10/04/18 15:27 103 H 22 10/04/18 15:00 109 H 26 H 92/72 94 10/04/18 14:06 98 10/04/18 14:00 104 H 23 90/62 97 10/04/18 13:00 119 H 18 96/85 H 97 10/04/18 12:16 110 H 21 10/04/18 12:00 36.0 C L 104 H 19 121/73 97 10/04/18 11:00 109 H 19 132/87 H 96 - Physical Exam General Appearance: positive: Moderate distress, Anxious Eyes Bilateral: positive: Other (pinpoint pupils) ENT: positive: Dry mucous membranes, Other (has bipap on) Neck: positive: No JVD, Trachea midline Cardiovascular: positive: Tachycardia Respiratory: positive: Rhonchi Abdomen: positive: Soft, Distended Skin: positive: Pallor Extremities: positive: Pedal edema (much improved) Neurologic/Psychiatric: positive: Disoriented to person (did recognize ), Disoriented to place (patient reports in [facility]; does not appear to be orientated to current situation), Disoriented to time, Weakness, Slurred/abnml speech (patient able to give short verbal responses; nonsensical in response;) Palliative Care - POLST Patient has POLST: No POLST Status: DNR (see palllative care discussion) Pain: Pain worsening, Location (Patient with continued pain in behaviors in lower coccyx area frequent repositioning, getting hydromorphone 2 mg every 2 hours around the clock, appears to last per nursing staff about 60 minutes to 90 minutes. He is responding better to than the morphine. He is very fidgety, do es not appear comfortable, is not moaning but concerned regarding overall comfort. Goal had been to transition to [place] for palliative care radiation, at this point would not be able to tolerate workup and laying still in less maximally sedated.) Tiredness/Fatigue: Severe (7-10) Drowsiness/Sedation: Mild (1-3) - Palliative Care Discussion: Met with patient's Haylee. The long significant journey for her over the last several days. Is concerned about his ongoing suffering, continued altered mental status, and feels he would not want his life extended especially if there is no on improvement in his mental status. It has been complicated as there is no underlying identifiable etiology, patient may have side effects of immunotherapy, has had hypoxia, thought it was the steroids had improved slightly off of them, but continues to minimally improve and pain control remains problematic. We did discuss if patient were given his underlying serious illness, at this point in time, to deteriorate further she would not want resuscitation. We did define do not attempt resuscitation/allow natural does not mean that we would not continue to treat at this point in time. Did introduce the concept if patient does not improve in the next 24-48 hrs. of considering transitioning to comfort measures only, and and aggressively managing his pain, most likely patient would be much more sedated and less able to interact. She is anxious to have him relieved of his suffering, as we are trying to find a balance currently in hopes to improve his underlying status. She will talk to her son josephine regarding further discussion and decisions for goals of care. She is disappointed given patient's goals were to get their legal and financial affairs in order that at this point this does not look like an attainable goal. She does report her son will help her as well as has expressed concern, and would want her to come live with him and his family. She has experienced multiple losses this last year, and is at bereavement risk. Results - Lab Results Fish Bones: 10/04/18 05:00 10/04/18 05:00 Lab and Imaging Results: Lab Results x24hrs 10/04/18 10/04/18 10/04/18 Range/Units 05:00 05:00 05:00 WBC (4.8-10.8) x10^3/uL RBC (4.70-6.10) 10^6/uL Hgb (14.0-18.0) g/dL Hct (42.0-52.0) % MCV (80.0-94.0) fL MCH (27.0-31.0) pg MCHC (32.0-36.0) g/dL RDW (12.0-15.0) % Plt Count (130-450) 10^3/uL MPV (7.4-11.4) fL Neut # (Auto) (1.5-6.6) 10^3/uL Lymph # (Auto) (1.5-3.5) 10^3/uL [place] # (Auto) (0.0-1.0) 10^3/uL Eos # (Auto) (0.0-0.7) 10^3/uL Baso # (Auto) (0.0-0.1) 10^3/uL Absolute Nucleated RBC x10^3/uL Nucleated RBC % /100WBC PT (9.9-12.6) secs INR (0.8-1.2) Sodium 135 (135-145) mmol/L Potassium 3.5 (3.5-5.0) mmol/L Chloride 94 L (101-111) mmol/L Carbon Dioxide 32 (21-32) mmol/L Anion Gap 9.0 (6-13) BUN 34 H (6-20) mg/dL Creatinine 1.1 (0.6-1.2) mg/dL Estimated GFR (MDRD) 66 L (>89) Glucose 115 H (70-100) mg/dL Calcium 8.1 L (8.5-10.3) mg/dL Total Bilirubin 1.3 H (0.2-1.0) mg/dL AST 44 H (10-42) IU/L ALT 85 H (10-60) IU/L Alkaline Phosphatase 139 H (42-121) IU/L Troponin I (<0.49) ng/mL B-Natriuretic Peptide 2559 H (5-100) pg/mL Total Protein 6.2 L (6.7-8.2) g/dL Albumin 3.0 L (3.2-5.5) g/dL Globulin 3.2 (2.1-4.2) g/dL Albumin/Globulin Ratio 0.9 L (1.0-2.2) Last Dose Date UNK Last Dose Time UNK Digoxin 1.0 ng/mL 10/04/18 10/04/18 10/03/18 Range/Units 05:00 05:00 22:58 WBC 12.2 H (4.8-10.8) x10^3/uL RBC 3.90 L (4.70-6.10) 10^6/uL Hgb 11.5 L (14.0-18.0) g/dL Hct 35.0 L (42.0-52.0) % MCV 89.8 (80.0-94.0) fL MCH 29.5 (27.0-31.0) pg MCHC 32.9 (32.0-36.0) g/dL RDW 15.3 H (12.0-15.0) % Plt Count 159 (130-450) 10^3/uL MPV 8.0 (7.4-11.4) fL Neut # (Auto) 10.1 H (1.5-6.6) 10^3/uL Lymph # (Auto) 0.8 L (1.5-3.5) 10^3/uL [place] # (Auto) 1.3 H (0.0-1.0) 10^3/uL Eos # (Auto) 0.0 (0.0-0.7) 10^3/uL Baso # (Auto) 0.0 (0.0-0.1) 10^3/uL Absolute Nucleated RBC 0.00 x10^3/uL Nucleated RBC % 0.0 /100WBC PT 23.9 H (9.9-12.6) secs INR 2.1 H (0.8-1.2) Sodium (135-145) mmol/L Potassium (3.5-5.0) mmol/L Chloride (101-111) mmol/L Carbon Dioxide (21-32) mmol/L Anion Gap (6-13) BUN (6-20) mg/dL Creatinine (0.6-1.2) mg/dL Estimated GFR (MDRD) (>89) Glucose (70-100) mg/dL Calcium (8.5-10.3) mg/dL Total Bilirubin (0.2-1.0) mg/dL AST (10-42) IU/L ALT (10-60) IU/L Alkaline Phosphatase (42-121) IU/L Troponin I 0.07 (<0.49) ng/mL B-Natriuretic Peptide (5-100) pg/mL Total Protein (6.7-8.2) g/dL Albumin (3.2-5.5) g/dL Globulin (2.1-4.2) g/dL Albumin/Globulin Ratio (1.0-2.2) Last Dose Date Last Dose Time Digoxin ng/mL Impression and Recommendations - Palliative Care Impression: This is a 73-year-old gentleman who continues to do quite poorly, with altered mental status, unknown etiology, and now with escalating uncontrolled pain related to his metastatic bony disease from his lung metastases. Hope it been to stabilize his current status, patient with underlying CHF, fluid overload, atrial fib with RVR and remains tachycardic, to allow transfer to [place] for radiation. Palliative care meeting with , patient unable to participate in conversation, regarding ongoing discussion and support around goals of care. Recommendations/Counseling Done: 1.Pain of neoplastic origin. Patient taken off his steroids, I suspect this most likely escalated his pain, steroids also are a effective intervention for bone pain. Agree with plan to consider radiation for relief. Patient in the last 24 hours with hydromorphone 2 mg every 2 hours has a total of 20 mg/or equivalent of 400 mg morphine oral. Would recommend consider initiating fentanyl Transderm patch, current dosing would be between 125 and 200 mcg patch, equivalent, could initiate starting slow for cross tolerance at 75-100 mcg and continue to use hydromorphone for BTP. This would start to build better steady state for pain control. 2. Altered mental status. This continues to be an history of unknown etiology, CT scan was negative, patient's confusion actually started prior to steroids though definitely did escalate. Patient with escalating opioid use, also could be contributing, as well as hypoxia, and compromised cardiac status and perfusion. This is been of great sadness to his , as as he has been unable to participate in decision-making, nor understand the seriousness of his illness and current ongoing decline.Patient currently mostly cooperative with staff, does get easily agitated, though unclear if these are pain behaviors as well. 3. Advanced care planning. Did meet with regarding patient's ongoing decline, goals of care had been to extend both patient's quality and quantity of life with his immunotherapy, he has now had a prolonged hospitalization, with little recovery as far as his confusion, and now escalating pain. Did discuss in the context of goals, will transition patient to do not attempt resuscitation, will continue to treat with the hope for improvement, but is recognizing as things progress and patient does not improve, further conversatio n to be pursued regarding transition to comfort measures in the future if appropriate. Time Spent: 35 minutes with greater than 50% of this done in counseling regarding goals of care, anticipatory guidance, and coordination of care with hospitalist.
[2018-10-04] MEDS ORDERED: HYDROmorphone 2 MG TABLET PO SCH (19:47)
[2018-10-04] MEDS: QUEtiapine 25 MG TABLET PO PRN (20:07)
[2018-10-04] MEDS ORDERED: SODIUM CHLORIDE 0.9% 500 ML IV ONE (21:50)
[2018-10-04] MEDS ORDERED: HALOPERIDOL 5 MG/ML VIAL IVP PRN (23:30)
[2018-10-04] MEDS ORDERED: LEVALBUTEROL 1.25 MG/3 ML NEB INH PRN (23:31)
[2018-10-05] MEDS: PIPERACILLIN/TAZOBACTAM 4.5 GM in SODIUM CHLORIDE 0.9% MINIBAG 100 ML IV SCH ×4 (00:32→18:32)
[2018-10-05] MEDS: QUEtiapine 25 MG TABLET PO PRN ×2 (01:02→10:16)
[2018-10-05] MEDS: HYDROmorphone 2 MG/ML VIAL IVP PRN ×4 (01:24→10:25)
[2018-10-05] MEDS: metroNIDAZOLE 500 MG/100 ML 500 MG/100 ML BAG IV SCH ×3 (04:57→20:41)
[2018-10-05 05:12] LABS: BASOPHILS % (AUTO) 0.3 %; EOSINOPHILS % (AUTO) 0.2 %; HGB - HEMOGLOBIN 11.4 g/dL (14.0-18.0); LYMPHOCYTES # (AUTO) 0.8 10^3/uL (1.5-3.5); LYMPHOCYTES % (AUTO) 6.5 %; MEAN CORPUSCULAR HEMOGLOBIN 29.3 pg (27.0-31.0); MEAN CORPUSCULAR HGB CONC 32.3 g/dL (32.0-36.0); MEAN CORPUSCULAR VOLUME 90.7 fL (80.0-94.0); MEAN PLATELET VOLUME 8.2 fL (7.4-11.4); MONOCYTES # (AUTO) 1.3 10^3/uL (0.0-1.0); MONOCYTES % (AUTO) 10.1 %; NEUTROPHILS # (AUTO) 10.6 10^3/uL (1.5-6.6); NEUTROPHILS % (AUTO) 82.9 %; PLT - PLATELET COUNT 162 10^3/uL (130-450); RED BLOOD COUNT 3.88 10^6/uL (4.70-6.10); RED CELL DISTRIBUTION WIDTH 15.5 % (12.0-15.0); WHITE BLOOD COUNT 12.8 x10^3/uL (4.8-10.8)
[2018-10-05 05:15] LABS: INR 2.2 (0.8-1.2); PT - PROTHROMBIN TIME 25.1 secs (9.9-12.6)
[2018-10-05 05:26] LABS: CALCIUM 8.3 mg/dL (8.5-10.3); CREATININE 1.1 mg/dL (0.6-1.2); MAGNESIUM 2.3 mg/dL (1.7-2.8)
[2018-10-05] MEDS: FUROSEMIDE 40 MG/4 ML VIAL IVP SCH ×2 (06:19→13:53)
[2018-10-05] MEDS: TAMSULOSIN 0.4 MG CAPSULE PO SCH (08:29)
[2018-10-05] MEDS: METOPROLOL SUCCINATE 25 MG TABLET PO SCH (08:37)
[2018-10-05] MEDS: POTASSIUM CHLORIDE 20 MEQ TABLET PO SCH (08:39)
[2018-10-05] MEDS: DIGOXIN 500 MCG/2 ML AMP IVP SCH (08:40)
--- NOTE | 2018-10-05 09:01 | XRAY Report ---
Reason: CHF and pneumonitis Procedure Date: 10/05/2018 Accession Number: [id number] / [id number] Procedure: XR - Chest 1 View X-Ray CPT Code: 38849 FULL RESULT: EXAM: CHEST RADIOGRAPHY EXAM DATE: 10/05/2018 08:47 AM. CLINICAL HISTORY: CHF and pneumonitis. COMPARISON: CHEST 1 VIEW 10/04/2018 6:46 AM CHEST W/O 05/28/2018 11:46 AM. Correlation with PET/CT report from 08/05/2018, [facility]. TECHNIQUE: 1 view. FINDINGS: Lungs/Pleura: Persistent asymmetric right upper lobe airspace opacity with adjacent pleural thickening. No pneumothorax. Coarse lung markings throughout both lungs compatible with COPD. Mediastinum: Tortuous thoracic aorta with dense atherosclerotic calcifications. Prominent cardiac silhouette may be in part magnification from AP portable technique. Other: Left subclavian Port-A-Cath with tip overlying the lower third of SVC near cavoatrial junction. IMPRESSION: 1. Persistent asymmetric right upper lobe opacity with adjacent pleural thickening. Findings are compatible with known malignancy and potentially infectious process. Recommend clinical correlation. 2. Coarse interstitial lung markings in patient with known COPD. Cannot exclude pulmonary vascular congestion. No pleural effusion. RADIA
[2018-10-05] MEDS: KETOCONAZOLE 2% CREAM 15 GM TUBE TOP SCH ×2 (10:30→20:42)
[2018-10-05] MEDS ORDERED: HYDROmorphone PCA 20MG/100ML IV PRN (11:11)
[2018-10-05] MEDS: SODIUM CHLORIDE 0.9% 500 ML IV PRN (12:45)
[2018-10-05] MEDS: WARFARIN 2.5 MG TABLET PO SCH (13:27)
--- NOTE | 2018-10-05 15:25 | PROVIDER PROGRESS NOTE ---
Subjective - Prog Note Date Prog Note Date: 10/05/18 Prog Note Time: 15:23 - Subjective Subjective: This is a 73-year-old man who has stage IV lung cancer that is metastatic to bone and liver. He presented to the emergency room on September 27 with bilateral leg swelling for about 2 weeks associated with shortness of breath that when asked the ranges of when that started was anywhere from 25 years to 1 month. There was no real reliable timeline for shortness of breath. A month prior to admission his doctor did put him on oxygen. He was hypoxic, dyspneic. Differential diagnosis included new onset congestive heart failure, pneumonia, pulmonary embolus. An echo from July 2018 was reviewed and he was found to have biventricular enlargement and right ventricular systolic pressure of 51 mmHg. He has known obstructive sleep apnea. It is felt that he had worsening right-sided heart failure and he was diuresed for his cor pulmonale. He was seen in consultation by palliative care and it was noted that he did not have a CODE STATUS nor adequate control of his pain. That was implemented. By October 01 he had improved with speaking, was feeling better. Dumont was out. Heart rate was dropped down to the 70s. He was confused that morning but improved by the afternoon. By October 02, however, he was now continually moderately confused. Required a one-on-one sitter the evening of October 01. And his main complaint was pain. He continued to be agitated at night. On October 03 he was taking off His CPAP, Pulling on His Lines. He Was Now Recurrently Hypoxic with Pulse Ox Measuring Mid to High 80s. In spite of Haldol and morphine, Ativan, he was still agitated and required restraints. Lasix 20 mg IV push was ordered. He was transferred to the ICU. He was felt to have a 3 L positive fluid balance over 24 hours and BNP had went from 800s to 2722. He was put on BiPAP, and initial blood gas did confirm the acute respirat ory failure with hypoxemia that responded to the BiPAP. Yesterday he needed less oxygen, able to come off BiPAP for a few minutes. Diuretics were adjusted. Today he is lying almost flat in the bed. BiPAP on. I say hello to him when he says hello back. The nurses not to be too hopeful with that since he deteriorates very quickly from a mental status perspective. Current Medications - Current Medications Current Medications: Active Medications Digoxin (Lanoxin Inj) 250 mcg IVP DAILY [facility] Last Admin: 10/05/18 08:40 Dose: 250 mcg Furosemide (Lasix Inj 40 Mg Vial) 40 mg IVP BIDDIURETIC [facility] Last Admin: 10/05/18 13:53 Dose: 40 mg Haloperidol (Haldol Inj) 1 mg IVP Q6H PRN PRN Reason: Agitation Last Admin: 10/04/18 23:40 Dose: 1 mg Heparin Sodium (Beef Lung) () 30 - 50 unit IVP PRN PRN PRN Reason: Port Protocol (<24 hours) Last Admin: 10/03/18 00:48 Dose: 30 unit Hydromorphone HCl (Dilaudid (Vial)) 2 mg IVP Q2H PRN PRN Reason: PAIN Last Admin: 10/05/18 10:25 Dose: 2 mg Hydromorphone HCl (Dilaudid School Adjustment Counselor 20mg/100ml) 20 mg IV PRN PRN; Protocol PRN Reason: PAIN Last Admin: 10/05/18 12:17 Dose: 20 mg Piperacillin Sod/Tazobactam (Sod 4.5 gm/ Sodium Chloride) 100 mls @ 200 mls/hr IV Q6H [facility] Last Infusion: 10/05/18 13:39 Dose: Infused Metronidazole (Flagyl 500 Mg/100 Ml) 500 mg in 100 mls @ 100 mls/hr IV Q8H [facility] Last Admin: 10/05/18 14:01 Dose: 100 mls/hr Sodium Chloride (Normal Saline 0.9%) 500 mls @ 0 mls/hr IV Q24H PRN PRN Reason: TKO RATE Last Admin: 10/05/18 12:45 Dose: 20 mls/hr Ketoconazole (Nizoral 2% Cream) 1 applic TOP BID [facility] Last Admin: 10/05/18 10:30 Dose: 1 applic Levalbuterol HCl (Xopenex) 1.25 mg INH RTQ4H PRN PRN Reason: Wheezing Lidocaine HCl (Xylocaine Uro-Jet 2%) 2.5 ml UR Q6H PRN PRN Reason: PAIN Last Admin: 09/28/18 13:22 Dose: 2.5 ml Metoprolol Succinate (Toprol Xl) 12.5 mg PO DAILY [facility] Last Admin: 10/05/18 08:37 Dose: 12.5 mg Morphine Sulfate (Morphine (Carpuject)) 2 mg IVP Q4HR PRN PRN Reason: Dyspnea Last Admin: 10/04/18 03:40 Dose: 2 mg Nystatin (Nystop) 1 applic TOP BID [facility] Last Admin: 10/04/18 20:51 Dose: 1 applic Potassium Chloride (K-Dur) 20 meq PO DAILYWM [facility] Last Admin: 10/05/18 08:39 Dose: 20 meq Prochlorperazine Edisylate (Compazine Inj) 10 mg IVP Q6HR PRN PRN Reason: Nausea / Vomiting Quetiapine Fumarate (Seroquel) 75 mg PO 2100 PRN PRN Reason: Agitation Last Admin: 10/05/18 10:16 Dose: 75 mg Sodium Chloride (Normal Saline Flush 0.9%) 10 ml IVP PRN PRN PRN Reason: NEEDED PER PROVIDER ORDERS Last Admin: 10/03/18 10:52 Dose: 20 ml Tamsulosin HCl (Flomax) 0.4 mg PO DAILY [facility] Last Admin: 10/05/18 08:29 Dose: 0.4 mg Warfarin Sodium (Coumadin) 2.5 mg PO QDWARFARIN [facility] Last Admin: 10/05/18 13:27 Dose: 2.5 mg Atorvastatin Calcium 40 mg PO DAILY 10/14/16 Doxazosin Mesylate 8 mg PO DAILY 10/14/16 Lisinopril 40 mg PO DAILY 10/14/16 amLODIPine [Norvasc] 10 mg PO DAILY 10/14/16 metFORMIN [Glucophage] 500 mg PO BID 10/14/16 Acetaminophen [Extra Strength Non-Aspirin] 500 mg PO BID 09/28/18 Cholecalciferol (Vitamin D3) [Vitamin D3] 2,000 unit PO DAILY 09/28/18 HYDROcod/ACETAM 5/325 [[place] 5/325] 1 - 2 tab PO Q4H PRN 09/28/18 Loratadine [Allergy] 10 mg PO DAILY 09/28/18 Morphine Sulfate [Morphine Sulfate ER] 15 mg PO Q8H 09/28/18 Warfarin Sodium 5 mg PO DAILY 09/28/18 Objective - Vital Signs/Intake & Output Reviewed Vital Signs: Yes Vital Signs: Vital Signs x48h Temp Pulse Pulse Pulse Resp BP Pulse Ox 10/05/18 14:00 96 20 83/53 L 99 10/05/18 13:33 95 10/05/18 13:00 98 20 120/91 H 96 10/05/18 12:00 99 20 119/78 93 10/05/18 11:00 99 25 H 98/71 10/05/18 10:00 84 21 104/77 95 10/05/18 09:25 111 H 10/05/18 09:00 36.5 C 106 H 20 130/81 H 98 10/05/18 08:40 97 10/05/18 08:00 36.1 C L 100 20 128/88 H 96 Intake & Output: Intake & Output 10/02/18 10/03/18 10/04/18 10/05/18 23:59 23:59 23:59 23:59 Intake Total 2730 200 2418 580 Output Total 850 4435 1801 1794 Balance 9230 -4579 617 -1214 - Objective General Appearance: positive: No acute distress (laying flat in bed, with BiPap) Eyes Bilateral: positive: PERRL, EOMI Respiratory: positive: Chest non-tender, No respiratory distress, Rhonchi Cardiovascular: positive: Regular rate & rhythm. negative: Gallop/S4, Friction rub Abdomen: positive: Non-tender, No organomegaly, Nml bowel sounds, No distention Skin: positive: Warm, Dry Extremities: positive: Full ROM, Pedal edema Neurologic/Psychiatric: positive: CN's nml (2-12), Motor nml, Disoriented to person, Disoriented to place, Disoriented to time, Weakness, Slurred/abnml speech - Lab Results Fish Bones: 10/05/18 04:55 10/05/18 04:55 Other Labs: Lab Results x24hrs 10/05/18 10/05/18 10/05/18 Range/Units 04:55 04:55 04:55 WBC (4.8-10.8) x10^3/uL RBC (4.70-6.10) 10^6/uL Hgb (14.0-18.0) g/dL Hct (42.0-52.0) % MCV (80.0-94.0) fL MCH (27.0-31.0) pg MCHC (32.0-36.0) g/dL RDW (12.0-15.0) % Plt Count (130-450) 10^3/uL MPV (7.4-11.4) fL Neut # (Auto) (1.5-6.6) 10^3/uL Lymph # (Auto) (1.5-3.5) 10^3/uL [place] # (Auto) (0.0-1.0) 10^3/uL Eos # (Auto) (0.0-0.7) 10^3/uL Baso # (Auto) (0.0-0.1) 10^3/uL Absolute Nucleated RBC x10^3/uL Nucleated RBC % /100WBC PT 25.1 H (9.9-12.6) secs INR 2.2 H (0.8-1.2) Sodium (135-145) mmol/L Potassium (3.5-5.0) mmol/L Chloride (101-111) mmol/L Carbon Dioxide (21-32) mmol/L Anion Gap (6-13) BUN (6-20) mg/dL Creatinine (0.6-1.2) mg/dL Estimated GFR (MDRD) (>89) Glucose (70-100) mg/dL Calcium (8.5-10.3) mg/dL Phosphorus (2.5-4.6) mg/dL Magnesium (1.7-2.8) mg/dL B-Natriuretic Peptide (5-100) pg/mL Albumin 2.9 L (3.2-5.5) g/dL Last Dose Date UNK Last Dose Time UNK Digoxin 1.0 ng/mL 10/05/18 10/05/18 10/05/18 Range/Units 04:55 04:55 04:55 WBC 12.8 H (4.8-10.8) x10^3/uL RBC 3.88 L (4.70-6.10) 10^6/uL Hgb 11.4 L (14.0-18.0) g/dL Hct 35.2 L (42.0-52.0) % MCV 90.7 (80.0-94.0) fL MCH 29.3 (27.0-31.0) pg MCHC 32.3 (32.0-36.0) g/dL RDW 15.5 H (12.0-15.0) % Plt Count 162 (130-450) 10^3/uL MPV 8.2 (7.4-11.4) fL Neut # (Auto) 10.6 H (1.5-6.6) 10^3/uL Lymph # (Auto) 0.8 L (1.5-3.5) 10^3/uL [place] # (Auto) 1.3 H (0.0-1.0) 10^3/uL Eos # (Auto) 0.0 (0.0-0.7) 10^3/uL Baso # (Auto) 0.0 (0.0-0.1) 10^3/uL Absolute Nucleated RBC 0.01 x10^3/uL Nucleated RBC % 0.0 /100WBC PT (9.9-12.6) secs INR (0.8-1.2) Sodium 140 (135-145) mmol/L Potassium 3.7 (3.5-5.0) mmol/L Chloride 99 L (101-111) mmol/L Carbon Dioxide 32 (21-32) mmol/L Anion Gap 9.0 (6-13) BUN 32 H (6-20) mg/dL Creatinine 1.1 (0.6-1.2) mg/dL Estimated GFR (MDRD) 66 L (>89) Glucose 125 H (70-100) mg/dL Calcium 8.3 L (8.5-10.3) mg/dL Phosphorus (2.5-4.6) mg/dL Magnesium 2.3 (1.7-2.8) mg/dL B-Natriuretic Peptide 1690 H (5-100) pg/mL Albumin (3.2-5.5) g/dL Last Dose Date Last Dose Time Digoxin ng/mL 10/05/18 Range/Units 04:53 WBC (4.8-10.8) x10^3/uL RBC (4.70-6.10) 10^6/uL Hgb (14.0-18.0) g/dL Hct (42.0-52.0) % MCV (80.0-94.0) fL MCH (27.0-31.0) pg MCHC (32.0-36.0) g/dL RDW (12.0-15.0) % Plt Count (130-450) 10^3/uL MPV (7.4-11.4) fL Neut # (Auto) (1.5-6.6) 10^3/uL Lymph # (Auto) (1.5-3.5) 10^3/uL [place] # (Auto) (0.0-1.0) 10^3/uL Eos # (Auto) (0.0-0.7) 10^3/uL Baso # (Auto) (0.0-0.1) 10^3/uL Absolute Nucleated RBC x10^3/uL Nucleated RBC % /100WBC PT (9.9-12.6) secs INR (0.8-1.2) Sodium (135-145) mmol/L Potassium (3.5-5.0) mmol/L Chloride (101-111) mmol/L Carbon Dioxide (21-32) mmol/L Anion Gap (6-13) BUN (6-20) mg/dL Creatinine (0.6-1.2) mg/dL Estimated GFR (MDRD) (>89) Glucose (70-100) mg/dL Calcium (8.5-10.3) mg/dL Phosphorus 2.8 (2.5-4.6) mg/dL Magnesium (1.7-2.8) mg/dL B-Natriuretic Peptide (5-100) pg/mL Albumin (3.2-5.5) g/dL Last Dose Date Last Dose Time Digoxin ng/mL Sepsis Event Note (H) - Evaluation Current Stage of Sepsis: Ruled out Possible source of Sepsis: positive: Pulmonary - Sepsis Criteria Sepsis Criteria: Recorded Heart Rate greater than 90 bpm Assessment/Plan - Problem List (1) Acute respiratory failure with hypoxia Impression: He initially presented with shortness of breath, but was not and felt to be in acute respiratory distress. He initially improved. Identified as being cor pulmonale and having possible pneumonitis. He then went into acute respiratory failure on October 03 and required transfer to ICU with BiPAP. He is been on BiPAP since. But he is problem of metabolic encephalopathy does not allow him to be comfortable. He keeps on pulling off the mask. He is easily prompted. Initial blood gas on a nonrebreather showed him to have a PO2 of 60 and 100% nonrebreather. Once on BiPAP his PO2 went to 114. Treatment is consisted of steroids, diuretics. While he has improved he is still hypoxic He is not retaining CO2. (2) Altered mental status Impression: Not improving. Very difficult to assess why he is doing this. I suspect is a combination of pain, medications, hypoxia, being 73 years old in ICU. Difficult to see if he has metastases to the brain without an MRI. And right now he definitely is not a candidate for an MRI. He cannot keep still long enough. (3) Pneumonitis Assessment/Plan: CXR showed an infiltrate on R. This is suspicious for aspiration PNA. His antibiotics were changed 10/03 to cover HCAP, started Zosyn iv. Since his respiratory status improved, continued the antibiotic to cover HCAP organisms and added Flagyl 500 mg iv q8h 10/04 for a possible aspiration pneumonia. He really can be covered by Zosyn alone for both HCAP and aspiration in [facility]. So will stop flagyl. While we did ask for swallow eval, hard to say when this can be done since he is on BiPap Follow his CXR daily while on BIPAP in the ICU:Today he has a persistent asymmetric right upper lobe opacity with adjacent pleural thickening. Findings are compatible with known malignancy and potentially infectious process. Coarse interstitial lung markings in a patient with known COPD. Vascular congestion versus COPD changes. Essentially no worse than yesterday. (4) Pericardial effusion Assessment/Plan: Continue to manage with gentle diuresis. (5) Malignant neoplasm of right lung stage 4 Assessment/Plan: His pelvic and low back pain, due to mets, is under somewhat better control.He does respond to the Dilaudid temporarily. He comes down, is less agitated. Pt is still not stable for transfer to [facility], for Palliative Radiation, but this will be the plan once he is ready for [facility].We are now starting to rethink that. While oncology does state that if we give his medication time to take effect, he could respond weeks if not months down the road. But right at this moment in time, this gentleman is not doing well. Palliative care has been speaking to his regularly. We have gone from a full CODE STATUS to a DO NOT RESUSCITATE status. is essentially by herself right now she makes decisions. We are hoping that family will show up today. Help her make further decisions as to possibly transitioning to comfort measures only or if they want to continue this. We will start Dilaudid drip. See if this can calm him down. Adjust as needed to his alertness and his pain level (6) MAGDALENO on CPAP Assessment/Plan: RT to try weaning his O2 requirements down on BIPAP. His home CPAP device was used here, and can be resumed. (7) Cor pulmonale Assessment/Plan: When he was in pulmonary edema 10/03, he also had worsened R heart failure as evidenced by elevation of LFTs yesterday, from passive congestion of the liver. 10/04 the LFTs are decreasing. He has no appetite suggesting bowel edema still present. Continue gentle diuresis, following I's and O's and BUN/creat, to avoid over- diuresis. po Spironolactone added 10/04 as his iv diuretic will transition to po. (8) Chronic atrial fibrillation Assessment/Plan: Heart rate is been in the 80s and 90s today. Still in atrial fibrillation.Better than yesterday his rate which was in the 100s. Pt on Coumadin. Today's INR is 2.2. Pt on daily Dig only for rate control. Added Metoprolol Succinate 25 mg po daily for rate control 10/04 and it did help Dig level is 1.0 Follow INR daily, since his antibiotics may increase INR values. (9) BPH with obstruction/lower urinary tract symptoms Assessment/Plan: Dumont in place, was reinserted when he came to the ICU 10/03 Continue Dumont for I's and O's monitoring. (10) Type 2 diabetes mellitus Qualifiers: Diabetes mellitus prison insulin use: without prison use Diabetes mellitus complication status: without complication Qualified Code(s): E11.9 - Type 2 diabetes mellitus without complications Assessment/Plan: His A1c was 6 and he was to be on a Carb-controlled diet with fingerstick glu checks in the 100's. Global Compensation Manager has recommended that we stop the carb-controlled restriction, but will add a total fluid restriction and low-salt diet. (11) Hypertension Assessment/Plan: Pt on B-blockers and iv diuretics currently for BP control. Will add po Spironolactone as his iv diuretic will transition to po.
[2018-10-05] MEDS: HYDROmorphone PCA 20MG/100ML IV PRN (16:46)
[2018-10-05] MEDS: NYSTATIN POWDER 15 GM TOP SCH ×2 (17:46→20:41)
--- NOTE | 2018-10-05 20:23 | CONSULTATION NOTE ---
Palliative Care Follow Up - Referral Referring Provider: Na WHITLEY Time of Visit: 11:15-11:45 Referral setting: Hospitalized patient Referral Reason: Stage IV Lung Cancer/Goals of Care - Information Sources Records reviewed: RN notes reviewed, Previous records reviewed History/Review of Systems obtained from: Caregiver (clinical staff/hospitalist) Exam limitations: Clinical condition (patient remains significantly confused;) - History of Present Illness Update Brief HPI Update: Please see summary from 10/04. Patient remains on BiPAP, though he has been off for longer periods of time. Was able to eat some breakfast, take pills, taking fluids. Patient remains quite confused, does not seem distressed with my presence, appears to recognize me, but cannot identify who I am are why I am seeing him. Patient denies being worried, distress, does seem somewhat befuddled when asked him about his , when asked where he was he was in [facility]. I did speak with his on the phone, she is quite exhausted, this is been very distressful and she is feeling somewhat poorly. She had been in earlier and felt he did recognize her but she did not see improvement either. She is going to take a break today at home, her sister is coming, she has recognizing patient is continued decline. She will be in later. Patient still continues to receive hydromorphone 2 mg every 2 hours average, with only moderate relief of pain behaviors. Patient demonstrates pain behaviors by frequent shifting buttock, trying to pull himself over, though denies pain directly when asked but is not restful. Patient has not slept through the night, continues to be quite agitated though not aggressive in his agitation, though was last night. Patient does present with symptoms of delirium, sleep deprivation, side effects of medication, and with very little improvement. Social History - Living Situation Living arrangement: At home Living Situation: With spouse/s.o. Support System: expecting sister today, has been weighing benefits/burdens of transitioning to comfort care Medications/Allergies - Medications Active Medication List: Active Medications Digoxin (Lanoxin Inj) 250 mcg IVP DAILY [facility] Last Admin: 10/05/18 08:40 Dose: 250 mcg Furosemide (Lasix Inj 40 Mg Vial) 40 mg IVP BIDDIURETIC JR Last Admin: 10/05/18 13:53 Dose: 40 mg Haloperidol (Haldol Inj) 1 mg IVP Q6H PRN PRN Reason: Agitation Last Admin: 10/04/18 23:40 Dose: 1 mg Heparin Sodium (Beef Lung) () 30 - 50 unit IVP PRN PRN PRN Reason: Port Protocol (<24 hours) Last Admin: 10/03/18 00:48 Dose: 30 unit Hydromorphone HCl (Dilaudid (Vial)) 2 mg IVP Q2H PRN PRN Reason: PAIN Last Admin: 10/05/18 10:25 Dose: 2 mg Hydromorphone HCl (Dilaudid Meter Reader Inspector 20mg/100ml) 20 mg IV PRN PRN; Protocol PRN Reason: PAIN Last Admin: 10/05/18 16:46 Dose: 15 mg Piperacillin Sod/Tazobactam (Sod 4.5 gm/ Sodium Chloride) 100 mls @ 200 mls/hr IV Q6H [facility] Last Infusion: 10/05/18 19:37 Dose: Infused Metronidazole (Flagyl 500 Mg/100 Ml) 500 mg in 100 mls @ 100 mls/hr IV Q8H [facility] Last Infusion: 10/05/18 15:01 Dose: Infused Sodium Chloride (Normal Saline 0.9%) 500 mls @ 0 mls/hr IV Q24H PRN PRN Reason: TKO RATE Last Infusion: 10/05/18 18:33 Dose: 0 mls/hr Ketoconazole (Nizoral 2% Cream) 1 applic TOP BID [facility] Last Admin: 10/05/18 10:30 Dose: 1 applic Levalbuterol HCl (Xopenex) 1.25 mg INH RTQ4H PRN PRN Reason: Wheezing Lidocaine HCl (Xylocaine Uro-Jet 2%) 2.5 ml UR Q6H PRN PRN Reason: PAIN Last Admin: 09/28/18 13:22 Dose: 2.5 ml Metoprolol Succinate (Toprol Xl) 12.5 mg PO DAILY JR Last Admin: 10/05/18 08:37 Dose: 12.5 mg Morphine Sulfate (Morphine (Carpuject)) 2 mg IVP Q4HR PRN PRN Reason: Dyspnea Last Admin: 10/04/18 03:40 Dose: 2 mg Nystatin (Nystop) 1 applic TOP BID JR Last Admin: 10/05/18 17:46 Dose: 1 applic Potassium Chloride (K-Dur) 20 meq PO DAILYWM [facility] Last Admin: 10/05/18 08:39 Dose: 20 meq Prochlorperazine Edisylate (Compazine Inj) 10 mg IVP Q6HR PRN PRN Reason: Nausea / Vomiting Quetiapine Fumarate (Seroquel) 75 mg PO 2100 PRN PRN Reason: Agitation Last Admin: 10/05/18 10:16 Dose: 75 mg Sodium Chloride (Normal Saline Flush 0.9%) 10 ml IVP PRN PRN PRN Reason: NEEDED PER PROVIDER ORDERS Last Admin: 10/03/18 10:52 Dose: 20 ml Tamsulosin HCl (Flomax) 0.4 mg PO DAILY [facility] Last Admin: 10/05/18 08:29 Dose: 0.4 mg Warfarin Sodium (Coumadin) 2.5 mg PO QDWARFARIN [facility] Last Admin: 10/05/18 13:27 Dose: 2.5 mg Atorvastatin Calcium 40 mg PO DAILY 10/14/16 Doxazosin Mesylate 8 mg PO DAILY 10/14/16 Lisinopril 40 mg PO DAILY 10/14/16 amLODIPine [Norvasc] 10 mg PO DAILY 10/14/16 metFORMIN [Glucophage] 500 mg PO BID 10/14/16 Acetaminophen [Extra Strength Non-Aspirin] 500 mg PO BID 09/28/18 Cholecalciferol (Vitamin D3) [Vitamin D3] 2,000 unit PO DAILY 09/28/18 HYDROcod/ACETAM 5/325 [[place] 5/325] 1 - 2 tab PO Q4H PRN 09/28/18 Loratadine [Allergy] 10 mg PO DAILY 09/28/18 Morphine Sulfate [Morphine Sulfate ER] 15 mg PO Q8H 09/28/18 Warfarin Sodium 5 mg PO DAILY 09/28/18 - Allergies Allergies/Adverse Reactions: Allergies Allergy/AdvReac Type Severity Reaction Status Date / Time No Known Drug Allergies Allergy Verified 09/27/18 19:28 Review of Systems - Constitutional Constitutional: reports: Fatigue - Ears, Nose & Throat Ears, Nose & Throat: reports: Dry mouth - Respiratory Respiratory: reports: Other (on bipap) - Gastrointestinal Gastrointestinal: reports: Other (last recorded BM 10/02 ?) - Genitourinary Genitourinary: reports: Other (zafar catheter) - Musculoskeletal Musculoskeletal: reports: Muscle weakness, Other (in ICU bedbound) - Psychiatric Psychiatric: reports: Anxiety, Hallucinations, Behavior disturbances - All Other Systems All Other Systems: reports: Other (limited ROS) Physical Exam - Vital Signs Vital Signs: Vital Signs x48h Temp Pulse Pulse Resp BP Pulse Ox 10/05/18 19:26 15 10/05/18 19:25 36.6 C 102 H 16 93 10/05/18 19:00 92 18 102/83 H 95 10/05/18 18:00 99 16 132/63 H 94 10/05/18 17:51 18 10/05/18 17:34 92 10/05/18 17:00 93 18 106/72 100 10/05/18 16:00 36.4 C L 85 16 112/84 H 98 10/05/18 15:00 90 24 118/79 95 10/05/18 14:00 96 20 83/53 L 99 10/05/18 13:33 95 10/05/18 13:00 98 20 120/91 H 96 - Physical Exam General Appearance: positive: Moderate distress Eyes Bilateral: positive: Other (pupils pinpoint) ENT: positive: Dry mucous membranes (on bipap) Respiratory: positive: Rhonchi (upper airway; scattered) Skin: positive: Pallor Neurologic/Psychiatric: positive: Disoriented to person, Disoriented to place, Disoriented to time, Weakness, Slurred/abnml speech Palliative Care - POLST Patient has POLST: No POLST Status: DNR Pain: Pain unchanged, Location (Patient appears to still have pain in the sacral area, with pain behaviors if shifting, trying to reposition, and known sacral metastases. Patient is continue received hydromorphone 2 mg every 2-3 hours,) Drowsiness/Sedation: Moderate (4-6) - Palliative Care Discussion: Attempted to engage patient in conversation, denies feeling scared or feel fearful, does not appear to understand his current situation. But is more responsive, as far as engaging, squeezing hand, trying to make eye contact. Unfortunately patient was unable to delve into her wishes for the future, though he did understand the seriousness of his illness on our initial meeting. Since that time his cognitive status continued to decline, and now he presents with metabolic encephalopathy and unable to participate in decision-making. Unfortunately this then leads to the weight of the decisions for his , she is expecting her sister this afternoon. She does feel this will be of benefit as far as moving forward for any kind of decision-making. Haylee his has experienced significant loss over the last 18 months, and is at bereavement risk. Conversation with to review plan for pain control, updated regarding no significant improvements despite changes in antibiotics, continue to monitor status, she does realize as things are prolonging less likely chance of recovery. We did discuss concern regarding patient's ability to return to previous level of functioning and what his definition would be of quality of life. She does understand in the next 24-48 hrs. may be faced with the decision regarding transition to comfort care, she feels like we are heading that direction, but is needing some time to regroup and reenergize as well as enlist support of her family. Results - Lab Results Lab results reviewed: Yes Fish Bones: 10/05/18 04:55 10/05/18 04:55 Lab and Imaging Results: Lab Results x24hrs 10/05/18 10/05/18 10/05/18 Range/Units 04:55 04:55 04:55 WBC (4.8-10.8) x10^3/uL RBC (4.70-6.10) 10^6/uL Hgb (14.0-18.0) g/dL Hct (42.0-52.0) % MCV (80.0-94.0) fL MCH (27.0-31.0) pg MCHC (32.0-36.0) g/dL RDW (12.0-15.0) % Plt Count (130-450) 10^3/uL MPV (7.4-11.4) fL Neut # (Auto) (1.5-6.6) 10^3/uL Lymph # (Auto) (1.5-3.5) 10^3/uL Gilliam # (Auto) (0.0-1.0) 10^3/uL Eos # (Auto) (0.0-0.7) 10^3/uL Baso # (Auto) (0.0-0.1) 10^3/uL Absolute Nucleated RBC x10^3/uL Nucleated RBC % /100WBC PT 25.1 H (9.9-12.6) secs INR 2.2 H (0.8-1.2) Sodium (135-145) mmol/L Potassium (3.5-5.0) mmol/L Chloride (101-111) mmol/L Carbon Dioxide (21-32) mmol/L Anion Gap (6-13) BUN (6-20) mg/dL Creatinine (0.6-1.2) mg/dL Estimated GFR (MDRD) (>89) Glucose (70-100) mg/dL Calcium (8.5-10.3) mg/dL Phosphorus (2.5-4.6) mg/dL Magnesium (1.7-2.8) mg/dL B-Natriuretic Peptide (5-100) pg/mL Albumin 2.9 L (3.2-5.5) g/dL Last Dose Date UNK Last Dose Time UNK Digoxin 1.0 ng/mL 10/05/18 10/05/18 10/05/18 Range/Units 04:55 04:55 04:55 WBC 12.8 H (4.8-10.8) x10^3/uL RBC 3.88 L (4.70-6.10) 10^6/uL Hgb 11.4 L (14.0-18.0) g/dL Hct 35.2 L (42.0-52.0) % MCV 90.7 (80.0-94.0) fL MCH 29.3 (27.0-31.0) pg MCHC 32.3 (32.0-36.0) g/dL RDW 15.5 H (12.0-15.0) % Plt Count 162 (130-450) 10^3/uL MPV 8.2 (7.4-11.4) fL Neut # (Auto) 10.6 H (1.5-6.6) 10^3/uL Lymph # (Auto) 0.8 L (1.5-3.5) 10^3/uL Gilliam # (Auto) 1.3 H (0.0-1.0) 10^3/uL Eos # (Auto) 0.0 (0.0-0.7) 10^3/uL Baso # (Auto) 0.0 (0.0-0.1) 10^3/uL Absolute Nucleated RBC 0.01 x10^3/uL Nucleated RBC % 0.0 /100WBC PT (9.9-12.6) secs INR (0.8-1.2) Sodium 140 (135-145) mmol/L Potassium 3.7 (3.5-5.0) mmol/L Chloride 99 L (101-111) mmol/L Carbon Dioxide 32 (21-32) mmol/L Anion Gap 9.0 (6-13) BUN 32 H (6-20) mg/dL Creatinine 1.1 (0.6-1.2) mg/dL Estimated GFR (MDRD) 66 L (>89) Glucose 125 H (70-100) mg/dL Calcium 8.3 L (8.5-10.3) mg/dL Phosphorus (2.5-4.6) mg/dL Magnesium 2.3 (1.7-2.8) mg/dL B-Natriuretic Peptide 1690 H (5-100) pg/mL Albumin (3.2-5.5) g/dL Last Dose Date Last Dose Time Digoxin ng/mL 10/05/18 Range/Units 04:53 WBC (4.8-10.8) x10^3/uL RBC (4.70-6.10) 10^6/uL Hgb (14.0-18.0) g/dL Hct (42.0-52.0) % MCV (80.0-94.0) fL MCH (27.0-31.0) pg MCHC (32.0-36.0) g/dL RDW (12.0-15.0) % Plt Count (130-450) 10^3/uL MPV (7.4-11.4) fL Neut # (Auto) (1.5-6.6) 10^3/uL Lymph # (Auto) (1.5-3.5) 10^3/uL Gilliam # (Auto) (0.0-1.0) 10^3/uL Eos # (Auto) (0.0-0.7) 10^3/uL Baso # (Auto) (0.0-0.1) 10^3/uL Absolute Nucleated RBC x10^3/uL Nucleated RBC % /100WBC PT (9.9-12.6) secs INR (0.8-1.2) Sodium (135-145) mmol/L Potassium (3.5-5.0) mmol/L Chloride (101-111) mmol/L Carbon Dioxide (21-32) mmol/L Anion Gap (6-13) BUN (6-20) mg/dL Creatinine (0.6-1.2) mg/dL Estimated GFR (MDRD) (>89) Glucose (70-100) mg/dL Calcium (8.5-10.3) mg/dL Phosphorus 2.8 (2.5-4.6) mg/dL Magnesium (1.7-2.8) mg/dL B-Natriuretic Peptide (5-100) pg/mL Albumin (3.2-5.5) g/dL Last Dose Date Last Dose Time Digoxin ng/mL Impression and Recommendations - Palliative Care Impression: This is a 74-year-old gentleman with stage IV lung cancer, metastatic bony disease, with acute admission for shortness of breath, functional decline, and lower extremity edema. Patient has not shown much improvement, remains confused, and on BiPAP. Patient's pain continues to be challenging given his AMS and bone mets. Palliative care continue to follow regarding ongoing support for patient and family, developing goals of care Recommendations/Counseling Done: 1. Pain of neoplastic origin. Discussion with hospitalist relating to pain control, fentanyl patch vs hydromorphone drip. Given patch would delay related to onset ability to meet goal for controlled pain, will proceed with hydromorphone infusion 1 mg, titrate to comfort with goal to ease distress. Counseling regarding goals for infusion with , steady state, better able to titrate to control pain acutely today, allow patient to rest his he is quite delirious and has not slept well for several nights. Can transition to fentanyl or long-acting medication when reach steady state, influenced by decisions related to goals of care. 2. Altered mental status. Patient with only mild improvement as far as being able to engage, though remains nonsensical and confused. This remains difficult as far as patient not able to participate in decision-making, and now prolonged over several days, with concern for less likely to return to previous level of cognitive functioning. 3.Advanced care planning. Continue to explore with goals of care, spoke at length on phone, shared concerns regarding patient's ongoing decline, her goals are for him to have minimal suffering and to be comfortable. She had hope for the best it would be some improvement in his cognitive status as well as being able to further pursue treatment options. She is coming to the realization, that if patient's quality of life does not improve, this would not be congruent with his values for himself as he has always "taken care of her" and been fiercely independent. Will revisit tomorrow, sister is to arrive today, this will provide her increased support as needing to consider future decisions regarding goals. Time Spent: 30 minutes with greater than 50% of this done in counseling regarding goals of care with , follow-up with hospitalist regarding treatment plan, and anticipatory guidance provided
[2018-10-06] MEDS: PIPERACILLIN/TAZOBACTAM 4.5 GM in SODIUM CHLORIDE 0.9% MINIBAG 100 ML IV SCH ×4 (01:01→18:28)
[2018-10-06] MEDS: HYDROmorphone PCA 20MG/100ML IV PRN ×2 (02:13→14:59)
[2018-10-06] MEDS: metroNIDAZOLE 500 MG/100 ML 500 MG/100 ML BAG IV SCH (05:18)
[2018-10-06 05:30] LABS: BASOPHILS # (AUTO) 0.1 10^3/uL (0.0-0.1); BASOPHILS % (AUTO) 0.4 %; EOSINOPHILS # (AUTO) 0.2 10^3/uL (0.0-0.7); EOSINOPHILS % (AUTO) 1.3 %; HGB - HEMOGLOBIN 11.9 g/dL (14.0-18.0); LYMPHOCYTES # (AUTO) 0.8 10^3/uL (1.5-3.5); LYMPHOCYTES % (AUTO) 6.9 %; MEAN CORPUSCULAR HEMOGLOBIN 29.2 pg (27.0-31.0); MEAN CORPUSCULAR HGB CONC 31.9 g/dL (32.0-36.0); MEAN CORPUSCULAR VOLUME 91.5 fL (80.0-94.0); MEAN PLATELET VOLUME 7.9 fL (7.4-11.4); MONOCYTES # (AUTO) 1.2 10^3/uL (0.0-1.0); MONOCYTES % (AUTO) 9.8 %; NEUTROPHILS # (AUTO) 10.1 10^3/uL (1.5-6.6); NEUTROPHILS % (AUTO) 81.6 %; PLT - PLATELET COUNT 199 10^3/uL (130-450); RED BLOOD COUNT 4.08 10^6/uL (4.70-6.10); RED CELL DISTRIBUTION WIDTH 15.9 % (12.0-15.0); WHITE BLOOD COUNT 12.3 x10^3/uL (4.8-10.8)
[2018-10-06 05:33] LABS: INR 2.3 (0.8-1.2)
[2018-10-06 05:40] LABS: CALCIUM 7.9 mg/dL (8.5-10.3); CREATININE 1.1 mg/dL (0.6-1.2); MAGNESIUM 2.5 mg/dL (1.7-2.8); PHOSPHORUS 3.6 mg/dL (2.5-4.6)
[2018-10-06] MEDS: FUROSEMIDE 40 MG/4 ML VIAL IVP SCH ×2 (06:08→13:54)
--- NOTE | 2018-10-06 07:45 | PROVIDER PROGRESS NOTE ---
Subjective - Prog Note Date Prog Note Date: 10/06/18 Prog Note Time: 07:45 - Subjective Subjective: He is more awake. The Dilaudid drip is been successful in controlling his pain. This in turn has reduce the amount of agitation he is feeling. He is awake enough, now, to realize that he is in the hospital. He does not want to be here. He, his , and palliative care spoke about his poor prognosis. I did offer the opinion that I do not think that radiation therapy is going to improve his current illness and in fact may make him sicker. Current Medications - Current Medications Current Medications: Active Medications Digoxin (Lanoxin Inj) 250 mcg IVP DAILY JR Last Admin: 10/05/18 08:40 Dose: 250 mcg Furosemide (Lasix Inj 40 Mg Vial) 40 mg IVP BIDDIURETIC JR Last Admin: 10/06/18 06:08 Dose: 40 mg Haloperidol (Haldol Inj) 1 mg IVP Q6H PRN PRN Reason: Agitation Last Admin: 10/04/18 23:40 Dose: 1 mg Heparin Sodium (Beef Lung) () 30 - 50 unit IVP PRN PRN PRN Reason: Port Protocol (<24 hours) Last Admin: 10/03/18 00:48 Dose: 30 unit Hydromorphone HCl (Dilaudid (Vial)) 2 mg IVP Q2H PRN PRN Reason: PAIN Last Admin: 10/05/18 10:25 Dose: 2 mg Hydromorphone HCl (Dilaudid [employer] Specialist 20mg/100ml) 20 mg IV PRN PRN; Protocol PRN Reason: PAIN Last Admin: 10/06/18 02:13 Dose: 20 mg Piperacillin Sod/Tazobactam (Sod 4.5 gm/ Sodium Chloride) 100 mls @ 200 mls/hr IV Q6H JR Last Admin: 10/06/18 07:04 Dose: 200 mls/hr Metronidazole (Flagyl 500 Mg/100 Ml) 500 mg in 100 mls @ 100 mls/hr IV Q8H JR Last Infusion: 10/06/18 07:05 Dose: Infused Sodium Chloride (Normal Saline 0.9%) 500 mls @ 0 mls/hr IV Q24H PRN PRN Reason: TKO RATE Last Infusion: 10/06/18 05:19 Dose: 0 mls/hr Ketoconazole (Nizoral 2% Cream) 1 applic TOP BID [facility] Last Admin: 10/05/18 20:42 Dose: Not Given Levalbuterol HCl (Xopenex) 1.25 mg INH RTQ4H PRN PRN Reason: Wheezing Lidocaine HCl (Xylocaine Uro-Jet 2%) 2.5 ml UR Q6H PRN PRN Reason: PAIN Last Admin: 09/28/18 13:22 Dose: 2.5 ml Metoprolol Succinate (Toprol Xl) 12.5 mg PO DAILY [facility] Last Admin: 10/05/18 08:37 Dose: 12.5 mg Morphine Sulfate (Morphine (Carpuject)) 2 mg IVP Q4HR PRN PRN Reason: Dyspnea Last Admin: 10/04/18 03:40 Dose: 2 mg Nystatin (Nystop) 1 applic TOP BID [facility] Last Admin: 10/05/18 20:41 Dose: 1 applic Potassium Chloride (K-Dur) 20 meq PO DAILYWM [facility] Last Admin: 10/05/18 08:39 Dose: 20 meq Prochlorperazine Edisylate (Compazine Inj) 10 mg IVP Q6HR PRN PRN Reason: Nausea / Vomiting Quetiapine Fumarate (Seroquel) 75 mg PO 2100 PRN PRN Reason: Agitation Last Admin: 10/05/18 10:16 Dose: 75 mg Sodium Chloride (Normal Saline Flush 0.9%) 10 ml IVP PRN PRN PRN Reason: NEEDED PER PROVIDER ORDERS Last Admin: 10/03/18 10:52 Dose: 20 ml Tamsulosin HCl (Flomax) 0.4 mg PO DAILY [facility] Last Admin: 10/05/18 08:29 Dose: 0.4 mg Warfarin Sodium (Coumadin) 2.5 mg PO QDWARFARIN [facility] Last Admin: 10/05/18 13:27 Dose: 2.5 mg Atorvastatin Calcium 40 mg PO DAILY 10/14/16 Doxazosin Mesylate 8 mg PO DAILY 10/14/16 Lisinopril 40 mg PO DAILY 10/14/16 amLODIPine [Norvasc] 10 mg PO DAILY 10/14/16 metFORMIN [Glucophage] 500 mg PO BID 10/14/16 Acetaminophen [Extra Strength Non-Aspirin] 500 mg PO BID 09/28/18 Cholecalciferol (Vitamin D3) [Vitamin D3] 2,000 unit PO DAILY 09/28/18 HYDROcod/ACETAM 5/325 [[place] 5/325] 1 - 2 tab PO Q4H PRN 09/28/18 Loratadine [Allergy] 10 mg PO DAILY 09/28/18 Morphine Sulfate [Morphine Sulfate ER] 15 mg PO Q8H 09/28/18 Warfarin Sodium 5 mg PO DAILY 09/28/18 Objective - Vital Signs/Intake & Output Reviewed Vital Signs: Yes Vital Signs: Vital Signs x48h Temp Pulse Pulse Resp BP Pulse Ox 10/06/18 07:00 93 13 113/76 93 10/06/18 06:00 100 13 104/78 95 10/06/18 05:45 88 10/06/18 05:00 105 H 14 121/74 96 10/06/18 04:00 93 15 124/86 H 93 10/06/18 03:00 95 14 124/82 H 93 10/06/18 02:15 108 H 10/06/18 02:00 88 22 124/90 H 94 10/06/18 01:00 84 16 112/73 94 10/06/18 00:00 37.2 C 97 14 94/79 93 Intake & Output: Intake & Output 10/03/18 10/04/18 10/05/18 10/06/18 23:59 23:59 23:59 23:59 Intake Total 200 2418 1117.333 522.000 Output Total 4435 1801 2754 503 Balance -4235 617 -1636.667 19.000 - Objective General Appearance: positive: Alert, Other (But still easily confused at times. Laying comfortably on his back, no longer grasping at things in the air that are not there, no longer constantly trying to take off his mask, no longer trying to pick at linens or his IV lines) Eyes Bilateral: positive: PERRL ENT: positive: Pharynx nml Neck: positive: No JVD. negative: Stiff neck, Carotid bruit Respiratory: positive: Chest non-tender, No respiratory distress, Rales, Rhonchi. negative: Wheezes Cardiovascular: positive: Regular rate & rhythm, Systolic murmur. negative: Gallop/S4, Friction rub Abdomen: positive: No organomegaly, Nml bowel sounds, No distention, Tenderness Skin: positive: Warm, Dry Extremities: positive: Full ROM, Pedal edema Neurologic/Psychiatric: positive: CN's nml (2-12), Motor nml, Disoriented to time - Lab Results Fish Bones: 10/07/18 04:30 10/07/18 04:30 Other Labs: Lab Results x24hrs 10/06/18 10/06/18 10/06/18 Range/Units 05:15 05:15 05:15 WBC (4.8-10.8) x10^3/uL RBC (4.70-6.10) 10^6/uL Hgb (14.0-18.0) g/dL Hct (42.0-52.0) % MCV (80.0-94.0) fL MCH (27.0-31.0) pg MCHC (32.0-36.0) g/dL RDW (12.0-15.0) % Plt Count (130-450) 10^3/uL MPV (7.4-11.4) fL Neut # (Auto) (1.5-6.6) 10^3/uL Lymph # (Auto) (1.5-3.5) 10^3/uL Emery # (Auto) (0.0-1.0) 10^3/uL Eos # (Auto) (0.0-0.7) 10^3/uL Baso # (Auto) (0.0-0.1) 10^3/uL Absolute Nucleated RBC x10^3/uL Nucleated RBC % /100WBC PT 26.0 H (9.9-12.6) secs INR 2.3 H (0.8-1.2) Sodium 138 (135-145) mmol/L Potassium 3.7 (3.5-5.0) mmol/L Chloride 100 L (101-111) mmol/L Carbon Dioxide 34 H (21-32) mmol/L Anion Gap 4.0 L (6-13) BUN 36 H (6-20) mg/dL Creatinine 1.1 (0.6-1.2) mg/dL Estimated GFR (MDRD) 66 L (>89) Glucose 109 H (70-100) mg/dL Calcium 7.9 L (8.5-10.3) mg/dL Phosphorus 3.6 (2.5-4.6) mg/dL Magnesium 2.5 (1.7-2.8) mg/dL B-Natriuretic Peptide (5-100) pg/mL Albumin 2.9 L (3.2-5.5) g/dL 10/06/18 10/06/18 Range/Units 05:15 05:15 WBC 12.3 H (4.8-10.8) x10^3/uL RBC 4.08 L (4.70-6.10) 10^6/uL Hgb 11.9 L (14.0-18.0) g/dL Hct 37.4 L (42.0-52.0) % MCV 91.5 (80.0-94.0) fL MCH 29.2 (27.0-31.0) pg MCHC 31.9 L (32.0-36.0) g/dL RDW 15.9 H (12.0-15.0) % Plt Count 199 (130-450) 10^3/uL MPV 7.9 (7.4-11.4) fL Neut # (Auto) 10.1 H (1.5-6.6) 10^3/uL Lymph # (Auto) 0.8 L (1.5-3.5) 10^3/uL Emery # (Auto) 1.2 H (0.0-1.0) 10^3/uL Eos # (Auto) 0.2 (0.0-0.7) 10^3/uL Baso # (Auto) 0.1 (0.0-0.1) 10^3/uL Absolute Nucleated RBC 0.01 x10^3/uL Nucleated RBC % 0.0 /100WBC PT (9.9-12.6) secs INR (0.8-1.2) Sodium (135-145) mmol/L Potassium (3.5-5.0) mmol/L Chloride (101-111) mmol/L Carbon Dioxide (21-32) mmol/L Anion Gap (6-13) BUN (6-20) mg/dL Creatinine (0.6-1.2) mg/dL Estimated GFR (MDRD) (>89) Glucose (70-100) mg/dL Calcium (8.5-10.3) mg/dL Phosphorus (2.5-4.6) mg/dL Magnesium (1.7-2.8) mg/dL B-Natriuretic Peptide 1095 H (5-100) pg/mL Albumin (3.2-5.5) g/dL ABX Reporting Has patient been on IV antibiotics over the past 48 hours?: Yes Sepsis Event Note (H) - Evaluation Current Stage of Sepsis: Ruled out Possible source of Sepsis: positive: Pulmonary - Sepsis Criteria Sepsis Criteria: Recorded Heart Rate greater than 90 bpm Assessment/Plan - Problem List (1) Acute respiratory failure with hypoxia Impression: He initially presented with shortness of breath, but was not and felt to be in acute respiratory distress. He initially improved. Identified as being cor pulmonale and having possible pneumonitis. He then went into acute respiratory failure on October 03 and required transfer to ICU with BiPAP. He is been on BiPAP since. But he is problem of metabolic encephalopathy does not allow him to be comfortable. He keeps on pulling off the mask but he was easily prompted. Initial blood gas on a nonrebreather showed him to have a PO2 of 60 and 100% nonrebreather. Once on BiPAP his PO2 went to 114. Treatment has consisted of steroids, diuretics. While he has improved he is still hypoxic. Respiratory therapy is working diligently with him to see if we can get him off BiPAP. He is not retaining CO2. We will keep on trying to get him off BiPAP. After today's discussion with his about problem #5, she would like to transition to get him home with hospice. (2) Altered mental status Impression: Improved today. I started a Dilaudid drip yesterday, and it seems to have calmed him down from yesterday to today. Very difficult to assess why he is doing this. I suspect is a combination of pain, medications, hypoxia, being 73 years old in ICU. Difficult to see if he has metastases to the brain without an MRI. And right now he definitely is not a candidate for an MRI. He cannot keep still long enough.Because his mentation is less agitated with the use of Dilaudid, some of his problem may be significant pelvic pain from the metastatic disease. (3) Pneumonitis Assessment/Plan: CXR showed an infiltrate on R. This is suspicious for aspiration PNA. His antibiotics were changed 10/03 to cover HCAP, started Zosyn iv. Since his respiratory status improved, continued the antibiotic to cover HCAP organisms and added Flagyl 500 mg iv q8h 10/04 for a possible aspiration pneumonia. He really can be covered by Zosyn alone for both HCAP and aspiration in [facility]. So flagyl Will be stopped. While we did ask for swallow eval, hard to say when this can be done since he is on BiPap Follow his CXR daily while on BIPAP in the ICU: yesterday he has a persistent asymmetric right upper lobe opacity with adjacent pleural thickening. Findings are compatible with known malignancy and potentially infectious process. Coarse interstitial lung markings in a patient with known COPD. Vascular congestion versus COPD changes. Todaynterval increase in airspace opacities felt to represent a combination of atelectasis, consolidation, and edema. (4) Pericardial effusion Assessment/Plan: Continue to manage with gentle diuresis. (5) Malignant neoplasm of right lung stage 4 Assessment/Plan: His pelvic and low back pain, due to mets, is under somewhat better control.He does respond to the Dilaudid temporarily. He comes down, is less agitated. Pt is still not stable for transfer to [facility], for Palliative Radiation, but this will be the plan once he is ready for [facility].We are now starting to rethink that. While oncology does state that if we give his medication time to take effect, he could respond weeks if not months down the road. But right at this moment in time, this gentleman is not doing well. Palliative care has been speaking to his regularly. We have gone from a full CODE STATUS to a DO NOT RESUSCITATE status. is essentially by herself right now she makes decisions. We are hoping that family will show up today. Help her make further decisions as to possibly transitioning to comfort measures only or if they want to continue this. We will start Dilaudid drip. See if this can calm him down. Adjust as needed to his alertness and his pain level (6) MAGDALENO on CPAP Assessment/Plan: RT to try weaning his O2 requirements down on BIPAP. His home CPAP device was used here, and can be resumed. (7) Cor pulmonale Assessment/Plan: When he was in pulmonary edema 10/03, he also had worsened R heart failure as evidenced by elevation of LFTs yesterday, from passive congestion of the liver. 10/04 the LFTs are decreasing. He has no appetite suggesting bowel edema still present. Continue gentle diuresis, following I's and O's and BUN/creat, to avoid over- diuresis. po Spironolactone added 10/04 as his iv diuretic will transition to po. (8) Chronic atrial fibrillation Assessment/Plan: Heart rate is been in the 80s and 90s today. Still in atrial fibrillation.Better than yesterday his rate which was in the 100s. Pt on Coumadin. Today's INR is 2.2. Pt on daily Dig only for rate control. Added Metoprolol Succinate 25 mg po daily for rate control 10/04 and it did help Dig level is 1.0 Follow INR daily, since his antibiotics may increase INR values. (9) BPH with obstruction/lower urinary tract symptoms Assessment/Plan: Dumont in place, was reinserted when he came to the ICU 10/03 Continue Dumont for I's and O's monitoring. (10) Type 2 diabetes mellitus Qualifiers: Diabetes mellitus terminal make up operator insulin use: without fdc use Diabetes mellitus complication status: without complication Qualified Code(s): E11.9 - Type 2 diabetes mellitus without complications Assessment/Plan: His A1c was 6 and he was to be on a Carb-controlled diet with fingerstick glu checks in the 's. Manufacturing Operations Manager has recommended that we stop the carb-controlled restriction, but will add a total fluid restriction and low-salt diet. (11) Hypertension Assessment/Plan: Pt on B-blockers and iv diuretics currently for BP control. Will add po Spironolactone as his iv diuretic will transition to po.
[2018-10-06] MEDS: SODIUM CHLORIDE FLUSH 0.9% 10 ML SYRINGE IVP PRN ×2 (08:21→13:55)
[2018-10-06] MEDS: DIGOXIN 500 MCG/2 ML AMP IVP SCH (08:22)
[2018-10-06] MEDS: METOPROLOL SUCCINATE 25 MG TABLET PO SCH (08:28)
[2018-10-06] MEDS: POTASSIUM CHLORIDE 20 MEQ TABLET PO SCH (08:28)
[2018-10-06] MEDS: TAMSULOSIN 0.4 MG CAPSULE PO SCH (08:29)
[2018-10-06] MEDS: KETOCONAZOLE 2% CREAM 15 GM TUBE TOP SCH ×2 (09:00→20:18)
[2018-10-06] MEDS: NYSTATIN POWDER 15 GM TOP SCH ×2 (09:00→20:19)
--- NOTE | 2018-10-06 09:15 | XRAY Report ---
Reason: CHF and pneumonitis Procedure Date: 10/06/2018 Accession Number: [id number] / [id number] Procedure: XR - Chest 1 View X-Ray CPT Code: 87520 FULL RESULT: EXAM: CHEST RADIOGRAPHY EXAM DATE: 10/06/2018 09:05 AM. CLINICAL HISTORY: CHF and pneumonitis. COMPARISON: CHEST 1 VIEW 10/05/2018 8:11 AM. TECHNIQUE: 1 view. FINDINGS: Lungs/Pleura: Interval increase in patchy airspace opacities felt to likely represent a combination of pulmonary edema and atelectasis/consolidation. Small pleural effusions. No sizable pneumothorax. Mediastinum: Stable appearance of cardiomegaly with wide vascular pedicle. Other: Left subclavian vein approach central venous port terminating with its tip in the SVC is unchanged in configuration. IMPRESSION: Interval increase in airspace opacities felt to represent a combination of atelectasis/consolidation and edema. RADIA
[2018-10-06] MEDS: WARFARIN 2.5 MG TABLET PO SCH (14:00)
[2018-10-06] MEDS ORDERED: IOVERSOL 320 100 ML VIAL IVP ONE (17:12)
--- NOTE | 2018-10-06 17:49 | CONSULTATION NOTE ---
Palliative Care Follow Up - Referral Referring Provider: Na WHITLEY Time of Visit: 08-05 Referral setting: Hospitalized patient Referral Reason: Stage IV Lung Cancer/Goals of Care - Information Sources Records reviewed: Previous records reviewed History/Review of Systems obtained from: Patient, Family (met with Haylee and her sister, visiting from [place] for support) Exam limitations: Clinical condition (patient remains easily confused; is able to participate in conversations today but does not present with decision making capacity given the complexity of weighing information; can share wishes and values; off BiPAP for conversation) - History of Present Illness Update Brief HPI Update: This is a 73-year-old gentleman with stage IV lung cancer to the right upper lobe, adenocarcinoma moderately differentiated, with metastases to multiple nodes, left adrenal nodule thought to be metastatic disease, and bony metastases at T5 and sacrum. Patient presented 10 days ago, with progressive functional a nd cognitive decline, with respiratory distress, atrial fib with rapid ventricular response, on going tachycardiasmall pericardial effusion, has been treated for pneumonia, trial of steroids for possible pneumonitis with increasing confusion, difficulty controlling rate, Was acutely fluid overloaded with CHF exacerbation over weekend, diuresed over 9 kg, through this time patient has been confused, agitated, with increasing pain behaviors mostly located in his sacral area. These were demonstrated by increased agitation, shifting, unable to tolerate pressure in the area, and going escalating doses of opioids. The hope was patient's altered mental status would continue to improve, unfortunately it has not cleared, he did have a head CT on 08/01 with no enhancing lesion, unable to follow-up with an MRI secondary to patient's agitation. Discussion was had on 10/04 With Haylee, the patient in ICU, did agree if patient were to have end-of-life event, to allow natural and was made a DNR. Patient continue with escalating delirium, some improvement over the last couple days, and today presents much improved but still with confusion. Patient is able to participate though in a goals of care conversation, though decision-making does default to Haylee his . Complicating factors patient has remained on BiPAP since the weekend, has only been able to tolerate being off up to 60 minutes at a time, his chest x-ray today still showed an interval increase in airspace opacities felt to be merchandising representative of a combination of atelectasis/consolidation and edema. His BNP has decreased from 1690 yesterday to 1095 today. Unfortunately his white blood cell count remains elevated at 12.4, 10.1 neutrophil count, despite maximally treated antibiotics. Palliative care meeting with family, given their understanding patient is not at this point most likely to improved to previous level of functioning after meeting with hospitalist, as well as watching patients ongoing decline through these last 10 days, discussion regarding transition plan to comfort. Social History - Living Situation Living arrangement: At home Living Situation: With spouse/s.o. Support System: has had experience with hospice, had taken care of her father on hospice at home. She has experienced significant losses in last couple of years. She does have a son, her sister is here for support, and she reports there are other family members available. Patient's mother is actually still alive at age 92, he has siblings that are being appraised of the situation as well. Medications/Allergies - Medications Active Medication List: Active Medications Digoxin (Lanoxin Inj) 250 mcg IVP DAILY JR Last Admin: 10/06/18 08:22 Dose: 250 mcg Furosemide (Lasix Inj 40 Mg Vial) 40 mg IVP BIDDIURETIC JR Last Admin: 10/06/18 13:54 Dose: 40 mg Haloperidol (Haldol Inj) 1 mg IVP Q6H PRN PRN Reason: Agitation Last Admin: 10/04/18 23:40 Dose: 1 mg Heparin Sodium (Beef Lung) () 30 - 50 unit IVP PRN PRN PRN Reason: Port Protocol (<24 hours) Last Admin: 10/03/18 00:48 Dose: 30 unit Hydromorphone HCl (Dilaudid (Vial)) 2 mg IVP Q2H PRN PRN Reason: PAIN Last Admin: 10/05/18 10:25 Dose: 2 mg Hydromorphone HCl (Dilaudid Thermoforming Operator 20mg/100ml) 20 mg IV PRN PRN; Protocol PRN Reason: PAIN Last Admin: 10/06/18 14:59 Dose: 20 mg Piperacillin Sod/Tazobactam (Sod 4.5 gm/ Sodium Chloride) 100 mls @ 200 mls/hr IV Q6H JR Last Infusion: 10/06/18 13:00 Dose: Infused Sodium Chloride (Normal Saline 0.9%) 500 mls @ 0 mls/hr IV Q24H PRN PRN Reason: TKO RATE Last Infusion: 10/06/18 10:00 Dose: 10 mls/hr Ketoconazole (Nizoral 2% Cream) 1 applic TOP BID [facility] Last Admin: 10/06/18 09:00 Dose: 1 applic Levalbuterol HCl (Xopenex) 1.25 mg INH RTQ4H PRN PRN Reason: Wheezing Lidocaine HCl (Xylocaine Uro-Jet 2%) 2.5 ml UR Q6H PRN PRN Reason: PAIN Last Admin: 09/28/18 13:22 Dose: 2.5 ml Metoprolol Succinate (Toprol Xl) 12.5 mg PO DAILY [facility] Last Admin: 10/06/18 08:28 Dose: 12.5 mg Morphine Sulfate (Morphine (Carpuject)) 2 mg IVP Q4HR PRN PRN Reason: Dyspnea Last Admin: 10/04/18 03:40 Dose: 2 mg Nystatin (Nystop) 1 applic TOP BID [facility] Last Admin: 10/06/18 09:00 Dose: 1 applic Potassium Chloride (K-Dur) 20 meq PO DAILYWM [facility] Last Admin: 10/06/18 08:28 Dose: 20 meq Prochlorperazine Edisylate (Compazine Inj) 10 mg IVP Q6HR PRN PRN Reason: Nausea / Vomiting Quetiapine Fumarate (Seroquel) 75 mg PO 2100 PRN PRN Reason: Agitation Last Admin: 10/05/18 10:16 Dose: 75 mg Sodium Chloride (Normal Saline Flush 0.9%) 10 ml IVP PRN PRN PRN Reason: NEEDED PER PROVIDER ORDERS Last Admin: 10/06/18 13:55 Dose: 10 ml Tamsulosin HCl (Flomax) 0.4 mg PO DAILY [facility] Last Admin: 10/06/18 08:29 Dose: 0.4 mg Warfarin Sodium (Coumadin) 2.5 mg PO QDWARFARIN [facility] Last Admin: 10/06/18 14:00 Dose: 2.5 mg Atorvastatin Calcium 40 mg PO DAILY 10/14/16 Doxazosin Mesylate 8 mg PO DAILY 10/14/16 Lisinopril 40 mg PO DAILY 10/14/16 amLODIPine [Norvasc] 10 mg PO DAILY 10/14/16 metFORMIN [Glucophage] 500 mg PO BID 10/14/16 Acetaminophen [Extra Strength Non-Aspirin] 500 mg PO BID 09/28/18 Cholecalciferol (Vitamin D3) [Vitamin D3] 2,000 unit PO DAILY 09/28/18 HYDROcod/ACETAM 5/325 [[place] 5/325] 1 - 2 tab PO Q4H PRN 09/28/18 Loratadine [Allergy] 10 mg PO DAILY 09/28/18 Morphine Sulfate [Morphine Sulfate ER] 15 mg PO Q8H 09/28/18 Warfarin Sodium 5 mg PO DAILY 09/28/18 - Allergies Allergies/Adverse Reactions: Allergies Allergy/AdvReac Type Severity Reaction Status Date / Time No Known Drug Allergies Allergy Verified 09/27/18 19:28 Review of Systems - Constitutional Constitutional: reports: Fatigue - Ears, Nose & Throat Ears, Nose & Throat: reports: Dry mouth - Cardiovascular Cardiovascular: reports: Irregular heart rate, Edema (much improved) - Respiratory Respiratory: reports: SOB with exertion, Other (on Bipap; has been trialed off up to 1 hour). denies: Wheezing - Gastrointestinal Gastrointestinal: reports: Diarrhea, Poor appetite - Genitourinary Genitourinary: reports: Other (has zafar catheter) - Musculoskeletal Musculoskeletal: reports: Muscle weakness, Other (bedbound) - Integumentary Integumentary: reports: Rash (improved in groin and periarea) - Neurological Neurological: reports: Memory problems (Patient does present with ability to engage in conversation today. Patient is having difficulty questions, and seems somewhat befuddled with information, but is making jokes, recognize his , and when asked directly regarding his wishes is able to answer with short sentences, is not able to verbalize back full understanding when asking to summarize information provided;) - Psychiatric Psychiatric: reports: Depression - Endocrine Endocrine: reports: Diabetes type 2 - Hematologic/Lymphatic Hematologic/Lymphatic: reports: Recurrent infections (receiving antibiotics) - All Other Systems All Other Systems: reports: Other (limited ROS) Physical Exam - Vital Signs Vital Signs: Vital Signs x48h Temp Pulse Pulse Resp BP Pulse Ox 10/06/18 17:00 94 17 108/69 98 10/06/18 16:34 90 10/06/18 16:00 36.5 C 98 17 126/94 H 94 10/06/18 15:00 85 22 123/57 L 97 10/06/18 14:00 98 19 102/71 93 10/06/18 13:00 97 14 127/84 H 93 10/06/18 12:27 87 10/06/18 12:00 36.4 C L 88 18 120/76 98 10/06/18 11:56 20 10/06/18 11:00 91 14 109/89 H 94 10/06/18 10:00 91 16 134/77 H 96 - Physical Exam General Appearance: positive: Mild distress Eyes Bilateral: positive: Normal inspection ENT: positive: Dry mucous membranes. negative: Other (no s/s candidiasis) Cardiovascular: positive: Irregular, Tachycardia Respiratory: positive: Diminished in bases. negative: Rhonchi Abdomen: positive: Non-tender, Soft, Distended Skin: positive: Pallor, Dryness Extremities: positive: Pedal edema (trace to 1+ much improved) Neurologic/Psychiatric: positive: Disoriented to time, Weakness, Depressed mood/affect Palliative Care - POLST Patient has POLST: No POLST Status: DNR Pain: Pain improved, Location (Patient currently on hydromorphone infusion via Port-A-Cath, 1.5 mg an hour. Patient is somewhat drowsy on this, but has no further significant pain behaviors, and does seem like he is more rested today. He continues when up right to have some shifting and some tenderness over that sacral area, but when asked directly patient reports it is much better, but not resolved.) Tiredness/Fatigue: Moderate (4-6) Drowsiness/Sedation: Moderate (4-6) - Palliative Care Discussion: Met originally with patient, , and 's sister. Patient did seem to recognize me, was off BiPAP, was able to engage in conversation as far as "ba ntradha". Haylee reports patient is oriented to place, and time, Attempted to engage regarding information received from hospitalist, if patient understood current situation. Patient seemed hesitant to answer my questions, Haylee and her sister left the room to give us a chance to talk. Shared with patient my worries about his continued complications, and that it was a difficult place as far as what to do next as he was some better today but still very sick. Patient was very clear in the context he understood he was not going to get better, and that he was in the hospital, and stated clearly he did not want to in the hospital, he wanted to be at home. Discussed this would be a possibility to go home with hospice but I would need to meet with Haylee and see if she was in agreement. Met with Haylee and her sister, shared that patient was aware he was doing poorly, and did not want to in the hospital but at home. Discussed at length what this would mean as far as transitioning home, given patient is BiPAP dependent, taking him off of BiPAP could mean hours or could be extended to days. We would not send him home with respiratory support other than oxygen. Patient's pain is currently much better controlled on hydromorphone drip, did confirm with hospice regarding would accept him with infusion. Would be able to open him on , if wanted to move forward. Haylee has cared for her father on hospice before, does recognize that it is not 24-hour care. She was able to identify a niece who is a nurse who may be able to support her as well as other family members. She does not feel like she would be doing this "alone". His sister does express concerns though about the stressors that she is experienced over this last year, but it would like to honor Cristino wishes to at home recognizing it may be a difficult journey. Discussed case with Dr. Nelson, regarding concerns about transitioning off of bipap, unclear at this point the rate of demise, but can keep supporting him with bipap and current course of treatment until discharge to home. Haylee did meet with Brandon prior to regrouping, and confirmed his wishes regarding he does not want to in the hospital and does want to go home. He does not really understand all that has happened nor remember that last few days. Did attempt to have a discussion with Brandon regarding the BiPAP, did review we would be taking him off of this, and having oxygen at home. We would have him on medication, so as not to have any distress or suffering. Patient denies fear as far as dying, though is quite tearful. They did discuss with Brandon where he would like to be, they are going to put the hospital bed in the living room. Again conversation with Haylee regarding prognosis, could be hours to days or more prolonged if tolerates off BiPAP long-term. Patient's respiratory status though remains quite fragile, as well as his mental status, we have made improvements in his pain but hydromorphone infusion would also give tool to treat any respiratory distress as well.. Results - Lab Results Lab results reviewed: Yes Fish Bones: 10/06/18 05:15 10/06/18 05:15 Lab and Imaging Results: Lab Results x24hrs 10/06/18 10/06/18 10/06/18 Range/Units 05:15 05:15 05:15 WBC (4.8-10.8) x10^3/uL RBC (4.70-6.10) 10^6/uL Hgb (14.0-18.0) g/dL Hct (42.0-52.0) % MCV (80.0-94.0) fL MCH (27.0-31.0) pg MCHC (32.0-36.0) g/dL RDW (12.0-15.0) % Plt Count (130-450) 10^3/uL MPV (7.4-11.4) fL Neut # (Auto) (1.5-6.6) 10^3/uL Lymph # (Auto) (1.5-3.5) 10^3/uL [place] # (Auto) (0.0-1.0) 10^3/uL Eos # (Auto) (0.0-0.7) 10^3/uL Baso # (Auto) (0.0-0.1) 10^3/uL Absolute Nucleated RBC x10^3/uL Nucleated RBC % /100WBC PT 26.0 H (9.9-12.6) secs INR 2.3 H (0.8-1.2) Sodium 138 (135-145) mmol/L Potassium 3.7 (3.5-5.0) mmol/L Chloride 100 L (101-111) mmol/L Carbon Dioxide 34 H (21-32) mmol/L Anion Gap 4.0 L (6-13) BUN 36 H (6-20) mg/dL Creatinine 1.1 (0.6-1.2) mg/dL Estimated GFR (MDRD) 66 L (>89) Glucose 109 H (70-100) mg/dL Calcium 7.9 L (8.5-10.3) mg/dL Phosphorus 3.6 (2.5-4.6) mg/dL Magnesium 2.5 (1.7-2.8) mg/dL B-Natriuretic Peptide (5-100) pg/mL Albumin 2.9 L (3.2-5.5) g/dL 10/06/18 10/06/18 Range/Units 05:15 05:15 WBC 12.3 H (4.8-10.8) x10^3/uL RBC 4.08 L (4.70-6.10) 10^6/uL Hgb 11.9 L (14.0-18.0) g/dL Hct 37.4 L (42.0-52.0) % MCV 91.5 (80.0-94.0) fL MCH 29.2 (27.0-31.0) pg MCHC 31.9 L (32.0-36.0) g/dL RDW 15.9 H (12.0-15.0) % Plt Count 199 (130-450) 10^3/uL MPV 7.9 (7.4-11.4) fL Neut # (Auto) 10.1 H (1.5-6.6) 10^3/uL Lymph # (Auto) 0.8 L (1.5-3.5) 10^3/uL [place] # (Auto) 1.2 H (0.0-1.0) 10^3/uL Eos # (Auto) 0.2 (0.0-0.7) 10^3/uL Baso # (Auto) 0.1 (0.0-0.1) 10^3/uL Absolute Nucleated RBC 0.01 x10^3/uL Nucleated RBC % 0.0 /100WBC PT (9.9-12.6) secs INR (0.8-1.2) Sodium (135-145) mmol/L Potassium (3.5-5.0) mmol/L Chloride (101-111) mmol/L Carbon Dioxide (21-32) mmol/L Anion Gap (6-13) BUN (6-20) mg/dL Creatinine (0.6-1.2) mg/dL Estimated GFR (MDRD) (>89) Glucose (70-100) mg/dL Calcium (8.5-10.3) mg/dL Phosphorus (2.5-4.6) mg/dL Magnesium (1.7-2.8) mg/dL B-Natriuretic Peptide 1095 H (5-100) pg/mL Albumin (3.2-5.5) g/dL Impression and Recommendations - Palliative Care Impression: This is a 73-year-old gentleman with stage IV metastatic lung cancer, currently supported on BiPAP secondary to respiratory demise, pain is better controlled on continuous hydromorphone drip, if come to a decision point with prolonged hospitalization, serious illness, and minimal improvement. Palliative care meeting with patient and family to determine goals of care, with decision to transition to hospice on discharge tomorrow. Recommendations/Counseling Done: 1. Pain of neoplastic origin, multifactorial and mostly attributed to sacral metastases. Patient currently on hydromorphone 1.5 mg/h per up Port-A-Cath. Patient has not needed anything for breakthrough pain, pain behaviors much improved, the patient still admits to discomfort in the area, but is satisfied with current regimen. Patient is slightly drowsy,but able to engage in conversation and follow directions. 2. Advanced care planning. The patient does not present with decision-making capacity in the context of weighing the complexities of benefits and burdens, it does default to Haylee. Patient though is able to participate in conversation regarding goals of care, expressed values and wishes, and at this point in time he is saying he does not want to in the hospital, and wants to go home. Family meeting with the decision made to transition to hospice, reiterating unclear of prognosis whether will be hours secondary to coming off BiPAP or days. Haylee would like to honor patient's wishes, though is feeling overwhelmed, she is aware of hospice support. Has notified family, all are coming to say their goodbye's, feel she will have good support. Coordination of care with hospitalist and [facility] hospice for transition home tomorrow. Time Spent: 60 minutes with greater than 50% of this done in counseling regarding goals of care, anticipatory guidance, and coordination of care for hospice transition
[2018-10-06] MEDS: QUEtiapine 25 MG TABLET PO PRN (23:34)
[2018-10-07] MEDS: PIPERACILLIN/TAZOBACTAM 4.5 GM in SODIUM CHLORIDE 0.9% MINIBAG 100 ML IV SCH ×2 (01:01→06:46)
[2018-10-07] MEDS: SODIUM CHLORIDE 0.9% 500 ML IV PRN (01:02)
[2018-10-07] MEDS: HYDROmorphone PCA 20MG/100ML IV PRN (02:49)
[2018-10-07 05:00] LABS: VBG PH 7.378 (7.31-7.41)
[2018-10-07 05:02] LABS: BASOPHILS % (AUTO) 0.1 %; EOSINOPHILS # (AUTO) 0.1 10^3/uL (0.0-0.7); EOSINOPHILS % (AUTO) 0.9 %; HGB - HEMOGLOBIN 11.7 g/dL (14.0-18.0); LYMPHOCYTES # (AUTO) 1.3 10^3/uL (1.5-3.5); MEAN CORPUSCULAR HEMOGLOBIN 29.1 pg (27.0-31.0); MEAN CORPUSCULAR HGB CONC 31.8 g/dL (32.0-36.0); MEAN CORPUSCULAR VOLUME 91.3 fL (80.0-94.0); MEAN PLATELET VOLUME 8.7 fL (7.4-11.4); MONOCYTES # (AUTO) 1.4 10^3/uL (0.0-1.0); MONOCYTES % (AUTO) 10.9 %; NEUTROPHILS # (AUTO) 9.8 10^3/uL (1.5-6.6); NEUTROPHILS % (AUTO) 78.1 %; PLT - PLATELET COUNT 200 10^3/uL (130-450); RED BLOOD COUNT 4.03 10^6/uL (4.70-6.10); RED CELL DISTRIBUTION WIDTH 15.9 % (12.0-15.0); WHITE BLOOD COUNT 12.5 x10^3/uL (4.8-10.8)
[2018-10-07 05:09] LABS: CALCIUM 8.1 mg/dL (8.5-10.3); CREATININE 1.3 mg/dL (0.6-1.2); MAGNESIUM 2.4 mg/dL (1.7-2.8)
[2018-10-07] MEDS: FUROSEMIDE 40 MG/4 ML VIAL IVP SCH (05:20)
[2018-10-07 05:22] LABS: INR 2.6 (0.8-1.2); PT - PROTHROMBIN TIME 29.1 secs (9.9-12.6)
[2018-10-07] MEDS: METOPROLOL SUCCINATE 25 MG TABLET PO SCH (08:10)
[2018-10-07] MEDS: TAMSULOSIN 0.4 MG CAPSULE PO SCH (08:10)
[2018-10-07] MEDS: POTASSIUM CHLORIDE 20 MEQ TABLET PO SCH (08:10)
[2018-10-07] MEDS: DIGOXIN 500 MCG/2 ML AMP IVP SCH (08:12)
[2018-10-07] MEDS: NYSTATIN POWDER 15 GM TOP SCH (08:13)
[2018-10-07] MEDS: KETOCONAZOLE 2% CREAM 15 GM TUBE TOP SCH (08:13)
--- NOTE | 2018-10-07 09:10 | XRAY Report ---
Reason: CHF and pneumonitis Procedure Date: 10/07/2018 Accession Number: [id number] / [id number] Procedure: XR - Chest 1 View X-Ray CPT Code: 89764 FULL RESULT: EXAM: CHEST RADIOGRAPHY EXAM DATE: 10/07/2018 08:10 AM. CLINICAL HISTORY: CHF and pneumonitis. COMPARISON: CHEST 1 VIEW 10/06/2018 8:39 AM. TECHNIQUE: 1 view. FINDINGS: Lungs/Pleura: Patchy opacities and increased interstitial markings as well as blunting of costophrenic angles appear similar to prior, possibly mildly improved. Mediastinum: The cardiomediastinal silhouette demonstrates cardiomegaly and a tortuous aorta with interval decrease in the width of the vascular pedicle. Other: Left subclavian port with distal tip in the lower SVC. IMPRESSION: Interval decrease in width of the vascular pedicle and prominence of interstitial pulmonary markings, likely improvement in volume status. Persistent patchy pulmonary opacities. RADIA
--- NOTE | 2018-10-07 10:45 | Discharge Plan ---
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 Call for help. Follow-up with: Zeeshan Hicks MD [Primary Care Provider] -
[2018-10-07 12:07] VITALS: BP 103/73
--- NOTE | 2018-10-07 12:52 | CONSULTATION NOTE ---
Palliative Care Follow Up - Referral Referring Provider: Na WHITLEY Time of Visit: [id number] Referral setting: Hospitalized patient Referral Reason: STage IV Lung Cancer with mets to bone/nodes - Information Sources Records reviewed: RN notes reviewed, Previous records reviewed History/Review of Systems obtained from: Family (met with Haylee), Caregiver (clinical staff) Exam limitations: Clinical condition (patient nonverbal today; but alert and making eye contact;) - History of Present Illness Update Brief HPI Update: This is a 73-year-old gentleman with stage IV metastatic lung cancer, with right upper lobe mass, biopsy proven moderately differentiated adenocarcinomam with metastases to the mulitiple lymph nodes, and elizabeth lesion at T5 and right inferior sacral area, focal point of patients pain. Patient has had a prolonged hospitalization with multiple cardiac issues, pneumonia versus pneumonitis, ongoing respiratory failure on bipap, altered mental status with progression of cognitive decline, CT scan without brain mets, and escalating pain now on hydromorphone infusion at 1.5 mg. Patient with ongoing deterioration of quality of life, minimal improvement as far as returning to functional and cognitive status, and concern for prolonged hospitalization with little improvement, francisco javier salmon was able to participate and goals of care conversation yesterday, and was quite clear he did not want to in the hospital. In this vein, family conference with hans Leach main decision maker, decision was made to transfer patient home for end of life, with hospice support. Social History - Living Situation Living arrangement: At home Living Situation: With spouse/s.o. Support System: Patient discharging with hospice, has support at home. Family coming to visit, son and niece identified as able to participate in caregiving, sister currently staying with , and second sister coming. Patient's mother is still alive, will be visiting at home tomorrow. Medications/Allergies - Medications Active Medication List: Active Medications Digoxin (Lanoxin Inj) 250 mcg IVP DAILY JR Last Admin: 10/07/18 08:12 Dose: 250 mcg Furosemide (Lasix Inj 40 Mg Vial) 40 mg IVP BIDDIURETIC JR Last Admin: 10/07/18 05:20 Dose: 40 mg Haloperidol (Haldol Inj) 1 mg IVP Q6H PRN PRN Reason: Agitation Last Admin: 10/04/18 23:40 Dose: 1 mg Heparin Sodium (Beef Lung) () 30 - 50 unit IVP PRN PRN PRN Reason: Port Protocol (<24 hours) Last Admin: 10/03/18 00:48 Dose: 30 unit Hydromorphone HCl (Dilaudid (Vial)) 2 mg IVP Q2H PRN PRN Reason: PAIN Last Admin: 10/05/18 10:25 Dose: 2 mg Hydromorphone HCl (Dilaudid Mock Up Builder 20mg/100ml) 20 mg IV PRN PRN; Protocol PRN Reason: PAIN Last Admin: 10/07/18 02:49 Dose: 20 mg Piperacillin Sod/Tazobactam (Sod 4.5 gm/ Sodium Chloride) 100 mls @ 200 mls/hr IV Q6H JR Last Infusion: 10/07/18 07:18 Dose: Infused Sodium Chloride (Normal Saline 0.9%) 500 mls @ 0 mls/hr IV Q24H PRN PRN Reason: TKO RATE Last Infusion: 10/07/18 07:18 Dose: 10 mls/hr Ketoconazole (Nizoral 2% Cream) 1 applic TOP BID [facility] Last Admin: 10/07/18 08:13 Dose: 1 applic Levalbuterol HCl (Xopenex) 1.25 mg INH RTQ4H PRN PRN Reason: Wheezing Lidocaine HCl (Xylocaine Uro-Jet 2%) 2.5 ml UR Q6H PRN PRN Reason: PAIN Last Admin: 09/28/18 13:22 Dose: 2.5 ml Metoprolol Succinate (Toprol Xl) 12.5 mg PO DAILY [facility] Last Admin: 10/07/18 08:10 Dose: 12.5 mg Morphine Sulfate (Morphine (Carpuject)) 2 mg IVP Q4HR PRN PRN Reason: Dyspnea Last Admin: 10/04/18 03:40 Dose: 2 mg Nystatin (Nystop) 1 applic TOP BID [facility] Last Admin: 10/07/18 08:13 Dose: 1 applic Potassium Chloride (K-Dur) 20 meq PO DAILYWM [facility] Last Admin: 10/07/18 08:10 Dose: 20 meq Prochlorperazine Edisylate (Compazine Inj) 10 mg IVP Q6HR PRN PRN Reason: Nausea / Vomiting Quetiapine Fumarate (Seroquel) 75 mg PO 2100 PRN PRN Reason: Agitation Last Admin: 10/06/18 23:34 Dose: 75 mg Sodium Chloride (Normal Saline Flush 0.9%) 10 ml IVP PRN PRN PRN Reason: NEEDED PER PROVIDER ORDERS Last Admin: 10/06/18 13:55 Dose: 10 ml Tamsulosin HCl (Flomax) 0.4 mg PO DAILY [facility] Last Admin: 10/07/18 08:10 Dose: 0.4 mg Warfarin Sodium (Coumadin) 2.5 mg PO QDWARFARIN [facility] Last Admin: 10/06/18 14:00 Dose: 2.5 mg Doxazosin Mesylate 8 mg PO DAILY 10/14/16 Lisinopril 40 mg PO DAILY 10/14/16 amLODIPine [Norvasc] 10 mg PO DAILY 10/14/16 Acetaminophen [Extra Strength Non-Aspirin] 500 mg PO BID 09/28/18 - Allergies Allergies/Adverse Reactions: Allergies Allergy/AdvReac Type Severity Reaction Status Date / Time No Known Drug Allergies Allergy Verified 09/27/18 19:28 Review of Systems - Ears, Nose & Throat Ears, Nose & Throat: reports: Dry mouth - Cardiovascular Cardiovascular: reports: Irregular heart rate - Respiratory Respiratory: reports: Other (on Bipap; tolerating off for longer periods of time up to 90 minutes; sats decrease and fatigue; no respiratory distress). denies: Cough - Gastrointestinal Gastrointestinal: reports: Other (eating and drinking small amounts) - Genitourinary Genitourinary: reports: Other (has zafar catheter) - Musculoskeletal Musculoskeletal: reports: Muscle weakness, Other (has been bedbound) - Integumentary Integumentary: reports: Rash (groin rash resolving) - Neurological Neurological: reports: General weakness, Memory problems, Other (Patient had improved renal status and alertness yesterday, continue through the day to be more verbal, able to interact with family, reports he was joking. He did remain somewhat fluctuating as far as grasping situation, but did recognize family, was able to respond to simple questions, and was aware per 's report he was transitioning home today. Today he is alert, making eye contact, is not answered any questions verbally or directly. But is able to nod his head yes or no,. His level of alertness does appear to fluctuate, is hoping will improve some in home setting, family gathering to come say goodbye) - Endocrine Endocrine: reports: Diabetes type 2 - Hematologic/Lymphatic Hematologic/Lymphatic: reports: Recurrent infections (has continued to receive AB WBC remains elevated at 12.5) Physical Exam - Vital Signs Vital Signs: Vital Signs x48h Temp Pulse Pulse Resp BP Pulse Ox 10/07/18 12:00 86 18 103/73 96 10/07/18 10:30 19 10/07/18 09:00 96 13 10/07/18 08:12 101 H 10/07/18 08:00 36.4 C L 94 12 124/75 94 10/07/18 07:00 92 18 94/75 98 10/07/18 06:47 11 L 10/07/18 06:00 102 H 13 127/76 94 10/07/18 05:08 96 10/07/18 05:00 83 13 122/79 97 - Physical Exam ENT: positive: Oral lesions Palliative Care - POLST Patient has POLST: Yes POLST Status: DNR, Comfort Measures (POLST was completed with to reflect goals and for transport) Pain: Location (patient continues with some pain behaviors; shifting of tail bone; asked about pain did both thumbs up and thumbs down. Currently on continuous infusion 1.5 mg, will have RUG CUTTER bolus dosing and can titrate to comfort when settled at home; hospice care transitions coordinator to come put CADD on this morning.) Drowsiness/Sedation: Moderate (4-6) Nausea: None - Palliative Care Discussion: disappointed patient less verbal and interactive today, she does feel at some level he is "pouting" as he had called her on phone last night, conversation somewhat coherent. She is quite anxious about pending transition, but feeling it is the right thing to do and wants to honor his wishes. Anticipatory counseling done regarding patient's expected demise, patient will be supported on oxygen, but will be coming off the BiPAP. Discussed prognosis could be hours to days, patient is eating some, unclear how he is going to tolerate off BiPAP. Agreed goals were to focus on comfort, not to prolong his suffering, and for him to have at home surrounded by his family. Support given for , multiple several recent losses within the last few months, her brother suddenly, her father was on hospice, her [id number] within a week of her father's , and dealing with her 's and expected diagnosis and now imminent demise. She does feel she has good family support, and feels good about what she is doing to be able to meet patient's goals. TAMY ST was completed. Results - Lab Results Fish Bones: 10/07/18 04:30 10/07/18 04:30 Lab and Imaging Results: Lab Results x24hrs 10/07/18 10/07/18 10/07/18 Range/Units 04:30 04:30 04:30 WBC (4.8-10.8) x10^3/uL RBC (4.70-6.10) 10^6/uL Hgb (14.0-18.0) g/dL Hct (42.0-52.0) % MCV (80.0-94.0) fL MCH (27.0-31.0) pg MCHC (32.0-36.0) g/dL RDW (12.0-15.0) % Plt Count (130-450) 10^3/uL MPV (7.4-11.4) fL Neut # (Auto) (1.5-6.6) 10^3/uL Lymph # (Auto) (1.5-3.5) 10^3/uL [place] # (Auto) (0.0-1.0) 10^3/uL Eos # (Auto) (0.0-0.7) 10^3/uL Baso # (Auto) (0.0-0.1) 10^3/uL Absolute Nucleated RBC x10^3/uL Nucleated RBC % /100WBC PT 29.1 H (9.9-12.6) secs INR 2.6 H (0.8-1.2) VBG pH 7.378 (7.31-7.41) Ionized Calcium 1.11 L (1.15-1.33) mmol/L Sodium (135-145) mmol/L Potassium (3.5-5.0) mmol/L Chloride (101-111) mmol/L Carbon Dioxide (21-32) mmol/L Anion Gap (6-13) BUN (6-20) mg/dL Creatinine (0.6-1.2) mg/dL Estimated GFR (MDRD) (>89) Glucose (70-100) mg/dL Calcium (8.5-10.3) mg/dL Phosphorus 3.0 (2.5-4.6) mg/dL Magnesium (1.7-2.8) mg/dL 10/07/18 10/07/18 Range/Units 04:30 04:30 WBC 12.5 H (4.8-10.8) x10^3/uL RBC 4.03 L (4.70-6.10) 10^6/uL Hgb 11.7 L (14.0-18.0) g/dL Hct 36.8 L (42.0-52.0) % MCV 91.3 (80.0-94.0) fL MCH 29.1 (27.0-31.0) pg MCHC 31.8 L (32.0-36.0) g/dL RDW 15.9 H (12.0-15.0) % Plt Count 200 (130-450) 10^3/uL MPV 8.7 (7.4-11.4) fL Neut # (Auto) 9.8 H (1.5-6.6) 10^3/uL Lymph # (Auto) 1.3 L (1.5-3.5) 10^3/uL [place] # (Auto) 1.4 H (0.0-1.0) 10^3/uL Eos # (Auto) 0.1 (0.0-0.7) 10^3/uL Baso # (Auto) 0.0 (0.0-0.1) 10^3/uL Absolute Nucleated RBC 0.00 x10^3/uL Nucleated RBC % 0.0 /100WBC PT (9.9-12.6) secs INR (0.8-1.2) VBG pH (7.31-7.41) Ionized Calcium (1.15-1.33) mmol/L Sodium 142 (135-145) mmol/L Potassium 3.5 (3.5-5.0) mmol/L Chloride 101 (101-111) mmol/L Carbon Dioxide 34 H (21-32) mmol/L Anion Gap 7.0 (6-13) BUN 40 H (6-20) mg/dL Creatinine 1.3 H (0.6-1.2) mg/dL Estimated GFR (MDRD) 54 L (>89) Glucose 125 H (70-100) mg/dL Calcium 8.1 L (8.5-10.3) mg/dL Phosphorus (2.5-4.6) mg/dL Magnesium 2.4 (1.7-2.8) mg/dL Impression and Recommendations - Palliative Care Impression: This is a 73-year-old gentleman with metastatic stage IV lung cancer, he has had a prolonged hospitalization with ongoing demise. Decision has been made as patient was able to participate in goals of care conversation, to discharge home with hospice for end of life. Palliative care providing support and anticipatory guidance in transition planning Recommendations/Counseling Done: 1. Pain of neoplastic origin. Patient with continuous infusion of 1.5 mg hydromorphone, he will have 1 mg every 15 minutes for breakthrough dosing, can titrate to comfort after settled in at home. CADD pump to be placed prior to discharge, hospice to provide support and direction for titration to comfort. 2. Advanced care planning. TAMY ST is completed for transportation, and further defining goals of care. Counseling provided to regarding anticipatory guidance and psychosocial support. Coordination of care report given to hospice team, hospice medical concierge will come and see patient and prior to discharge for introduction and support. Plan for discharge around noon today. Time Spent: 30 minutes was given 50% of this done in counseling regarding transition plann ing, anticipatory guidance, coordination of care with hospitalist, and hospice team
--- NOTE | 2018-10-12 07:24 | DISCHARGE SUMMARY ---
Physician: Delilah Nelson MD DATE OF ADMISSION: 09/27/2018 DATE OF DISCHARGE: 10/07/2018 DISCHARGE DIAGNOSES 1. Acute respiratory failure. 2. Metabolic encephalopathy. 3. Pneumonia. 4. Stage IV lung cancer. 5. Malignant pericardial effusion. 6. Obstructive sleep apnea. 7. Cor pulmonale. 8. Chronic atrial fibrillation. 9. Type 2 diabetes mellitus, controlled, with complications, not on long-term use of insulin. 10. Hypertension. DISCHARGE MEDICATIONS 1. Tylenol Extra Strength 500 mg p.o. b.i.d. 2. Norvasc 10 mg p.o. daily. 3. Doxazosin 8 mg p.o. daily. 4. Lisinopril 40 mg p.o. daily. 5. Hydromorphone 1 mg/5 mL syringe, creating a drip at 1.5 mg/hour. 6. Seroquel 75 mg p.o. at bedtime. 7. Flomax 0.4 mg p.o. daily. PRINCIPAL PROCEDURES 1. Chest x-ray shows right upper lobe mass; right lung and left lower lobe opacity suspicious for in filtrate, asymmetric edema, or lymphangitic spread of tumor; small effusions and no pneumothorax. On day of discharge, he had patchy opacities and increased interstitial markings, as well as blunting o f costophrenic angles similar to prior chest x-rays, possibly mildly improved. Cardiomediastinal emmanuel houette demonstrates cardiomegaly and a tortuous aorta with interval decrease in the width of the vas cular pedicle. His pneumonia is persistent and unchanged from admission. 2. Head CT with no evidence of enhancing brain lesion by CAT scan. 3. Blood cultures negative after 5 days. 4. Urine culture without aerobic growth. HOSPITAL COURSE: This is a gentleman who is 73 years old and has a history of paroxysmal atrial fibr illation, type 2 diabetes mellitus, hypertension, hyperlipidemia and unfortunately stage IV lung canc er. He was recently diagnosed with metastatic disease to the bone and liver, particularly in the lum bar spine. He presented to the emergency room with severe bilateral leg swelling, and duration diffi cult for the patient to pinpoint, he thinks about 2 weeks. Associated with shortness of breath that ranged anywhere from 25 years to 1 month in duration. However, without being able to provide a very reliable timeline, he does seem to complain of an acute exacerbation of shortness of breath. A month ago, his doctor put him on oxygen. Today, in spite of 2 liters of oxygen, he is short of breath and his saturations are at 78%. He was brought to the emergency room by ambulance, and later provi ded some more story. He does have a history of obstructive sleep apnea, and she went home to go get his CPAP device. He does not have a history of CHF, and a recent echocardiogram in July 2018 show ed an ejection fraction of 60% to 65%. He is not on diuretics. Despite his history of paroxysmal at rial fibrillation, he is not on anticoagulation and he is not on a rate control mechanism. In the em ergency room, he was afebrile, but tachycardic in the 115-120 range. Hypotensive with systolics in t he 90s/60s diastolic. White cell count was 12, lactic acid was not ordered. Chest x-ray had bilater al pleural effusions with a possible infiltrate at the bases bilaterally. He was admitted, as dyspnea on exertion with hypoxia. In essence, he was in acute respiratory failur e with unknown cause, but multiple differentials. We thought of congestive heart failure, pneumonia, pulmonary embolus, or uncontrolled atrial fibrillation as the cause of all of this. He was placed o n IV heparin and DVT prophylaxis, and we started the workup for possible congestive heart failure. E chocardiogram showed a left ventricular ejection fraction of 60% to 65%. Mild right ventricular enla rgement. Systolic function was mildly impaired on the right side. Mild tricuspid regurgitation, mod erately abnormal heart pressures. RVSP at rest was 64 mmHg in comparison to the prior echo in [facility], where he was 51 mmHg. There is a new pericardial effusion compared to prior study. It was not ta mponading. He was empirically treated for pneumonia as we worked up his congestive heart failure. B lood pressure medicines were held because he was hypotensive on admission. Dumont was placed because of urinary retention and for us to allow us to do a better accurate assessment of his intake and outp ut. Once the echo came back, we felt him to have right-sided heart failure as a predominant problem. He was switched to oral Lasix, spironolactone, Dumont was removed. Tachycardia had resolved with IV digo colin. He was started on anticoagulation with warfarin because of the atrial fibrillation. His IV ant ibiotics were changed to oral antibiotics. He was felt to be slowly improving with all of these lena ures. This was by October 01. However, he started getting confused that morning and, from October 01 onward, he became progressively more encephalopathic for unknown reasons. As such, a CT of the mavis d was done and negative. He had recurrent hypoxia and respiratory failure, and was transferred to [facility] with BiPAP. For the rest of his stay, we were really not clearly able to understand the mechanism of his confusion and agitation. He was diuresed, treated for pneumonia, CT did not confirm any metas tatic disease. We were unable to transfer him to [facility] because of his agitation and instability . It was postulated that his recent Keytruda infusion, which is associated with this type of encepha lopathy, was the cause of this. Over the course of a few days, he had escalating pain, was constantl y unable to rest and unable to sleep, which caused even more distress for him and his family. He was getting hydromorphone 2 mg every 2 hours and this was only lasting 60-90 minutes. We did contact Dr Brian Jeffers at [facility] for emergent radiation to see if we could impact his underlying pain, especial ly in the sacral region, but again, this patient was not stable for transfer. I spoke at length to his , as did Evie Dale through palliative care consultation. He was no l onger able to participate in goals of care conversation. We discussed that the patient was not impro ving, we did not have a clear etiology for his underlying mental status, and we were not able to adeq uately address his ongoing pain and discomfort through radiation therapy at this time. She did not w ant him resuscitated if he had an end of life event. She had multiple conversations with her son, Allen jenkins, as well as her sister who was her emotional support. I explained to his that I did not think that giving him radiation therapy would prolong his life . He deteriorated to the point that I do not know if radiation would help at this time. I started a Dilaudid drip in an effort to control his pain and it was a very good result. He became less agitat ed, was able to lie comfortably in bed, and had moments of sleep, if not hours of sleep. By the day of discharge, he was actually now conversant, able to speak to his , and clearly stated that he w anted to go home. He did seem to understand how imminently terminal he was. As such, we made arrangements through hospice to get him home on a Dilaudid drip. He was transferred to his house where I understand that this unfortunate gentleman in approximately 24 hours. At the time of discharge, blood pressure was 103/73, pulse was 86, respirations 18. He had been off BiPAP for most of the morning and was not in respiratory distress. He was sedated and slow to respon d, but eyes were open, he was able to speak in short sentences, and able to communicate effectively w ith his , who he recognized, and able to tell the nurse, he wanted to go home. He had dull, dull bases; poor inspiratory excursion, and was not in respiratory distress. Regular rate and rhythm. T he abdomen was soft, nontender, and he winced over palpation of the lower abdomen. Dumont was drainin g dark, dark brown, tea-colored urine. He was diffusely edematous. Greater than 30 minutes was spent in coordinating discharge. TD: 10/12/2018 06:36
== END 2018-10-07 12:25 | disposition hospice, home (50) | DRG 193 ==
LOC: EDUNIT# → ED 19:15 → MS2 22:15 → OBSVTOIN 09-28 11:15 → ICU 10-03 07:43
PROVIDERS: ADMIT Nurse Practitioner; ATTEND Internal Medicine
DX: I48.0 Paroxysmal atrial fibrillation (principal); J81.0 Acute pulmonary edema; R06.01 Orthopnea; J18.9 Pneumonia, unspecified organism; R60.9 Edema, unspecified; J96.01 Acute respiratory failure with hypoxia; I10 Essential (primary) hypertension; G93.41 Metabolic encephalopathy; I31.3 Pericardial effusion (noninflammatory); C79.51 Secondary malignant neoplasm of bone; C78.7 Secondary malignant neoplasm of liver and intrahepatic bile duct; C34.11 Malignant neoplasm of upper lobe, right bronchus or lung; N40.0 Benign prostatic hyperplasia without lower urinary tract symptoms; M54.9 Dorsalgia, unspecified; G89.29 Other chronic pain; I48.2 Chronic atrial fibrillation; G47.33 Obstructive sleep apnea (adult) (pediatric); I27.81 Cor pulmonale (chronic); E11.9 Type 2 diabetes mellitus without complications; E78.5 Hyperlipidemia, unspecified; Z99.81 Dependence on supplemental oxygen; R33.9 Retention of urine, unspecified; I95.9 Hypotension, unspecified; I11.0 Hypertensive heart disease with heart failure; I50.9 Heart failure, unspecified; N40.1 Benign prostatic hyperplasia with lower urinary tract symptoms
CPT/HCPCS: 36415; 36600; 51701; 70460; 71045; 80048; 80053; 80162; 81001; 82040; 82140; 82330; 82803; 83036; 83605; 83690; 83735; 83880; 84100; 84484; 85025; 85027; 85610; 87040; 87086; 87150; 93005; 93306; 94640; 94660; 96365; 96375; 96376; 99223; 99232; 99233; 99284; 99285

== ENCOUNTER 2018-10-07 12:35 | Outpatient (CLI) | payer MEDICARE, OTHER | END 2018-10-07 12:36 | disposition hospice, home (50) | LOC: EMS 12:35 | PROVIDERS: ATTEND Surgery | DX: R53.1 Weakness (principal); Z74.01 Bed confinement status | CPT/HCPCS: A0425; A0428 ==